=== PATIENT | female | born 1970 | race Caucasian/White ===

== ENCOUNTER 2019-09-18 11:07 | Outpatient (CLI) | payer MEDICAID, SELFPAY ==
[2019-09-18 11:15] LABS: Hematocrit 35.3 % (37.0-47.0); Hemoglobin 10.8 g/dL (11.5-15.3); Mean Corpuscular HGB Conc 30.6 g/dL (30.0-36.0); Mean Corpuscular Volume 94.9 fL (81-99); Mean Platelet Volume 9.5 fL (7.4-10.4); Platelet Count 227 10^3/cmm (130-400); Red Blood Count 3.72 10^6/uL (4.1-5.3); Red Cell Distribution Width 14.8 % (12.1-15.1); White Blood Count 6.9 10^3/uL (4.0-10.0)
[2019-09-18 11:31] LABS: Add Urine Microscopic? YES; Bilirubin Urine Neg (NEGATIVE); Blood Urine 2+ (Negative); Glucose Urine UA Norm (Normal); Ketones Urine Negative (Negative); Leukocyte Esterase Urine 2+ (Negative); Nitrate Urine Positive (Negative); Protein Urine Neg (Negative); Urine Appearance Cloudy (CLEAR); Urine Color Yellow (Yellow); Urobilinogen Urine Norm (Negative); pH Urine 6.5 (5-7)
[2019-09-18 11:41] LABS: Add Urine Culture? No; Bacteria Urine 3+; RBC Urine 15-25 /hpf (0-2); Squamous Epithelial Cell Urine 25-40 (0-5); WBC Urine 25-40 /hpf (0-5)
[2019-09-18 11:54] LABS: Alanine Aminotransferase 8 U/L (0-33); Albumin Level 3.3 g/dL (3.5-5.2); Alkaline Phosphatase 103 IU/L (35-105); Aspartate Amino Transferase 13 U/L (0-32); Blood Urea Nitrogen 22 mg/dL (6-20); Calcium 9.7 mg/dL (8.5-10.5); Carbon Dioxide 28 mmol/L (22-29); Chloride 98 mmol/L (98-107); Globulin 2.9 g/dL (1.3-4.6); Glomerular Filtration Rate 47.4 mL/min (90-130); Glucose 100 mg/dL (65-115); Sodium 140 mmol/L (136-145); Total Bilirubin 0.4 mg/dL (0.15-1.2); Total Protein 6.2 g/dL (6.6-8.7)
== END 2019-09-18 11:08 | disposition home or self-care (01) ==
LOC: LAB 11:10
PROVIDERS: Family Provider Internal Medicine; Visit Provider Internal Medicine
DX: D69.6 Thrombocytopenia, unspecified (principal)
CPT/HCPCS: 80053; 81001; 85027

== ENCOUNTER 2020-01-21 12:06 | Day surgery (SDC) | payer MEDICAID, SELFPAY ==
[2020-01-17 12:53] VITALS: BMI 38.2
--- NOTE | 2020-01-21 | SCC_ITS ---
Procedure Done: Right IJ Port-A-Cath under ultrasound and fluoroscopic guidance 7.4 seconds of fluoroscopic guidance, for a cumulative dose of 1.1 mGy, was provided to Dr. Beverly by the radiology department. C-arm images of the chest were saved for the patient's permanent record. [facility]
--- NOTE | 2020-01-21 12:55 | P.ANESASSM_ITS ---
Pre-Anesthetic Assessment Pre-Anesthetic Assessment: Height/Weight: Height 1.65 m Weight 104.326 kg Proposed Procedure: Operation Date: 01/21/20 13:40 Proposed Procedures p Portacath Placement 11421 Z78.9(Not Applicable) - Aldo Beverly MD PFS Anesthesia PFS: Medical History (Updated 12/31/19 @ 14:12 by Willie Louis MD) Anemia Constipation Depression Edema GERD (gastroesophageal reflux disease) History of MRSA infection Hyperlipidemia Hypertension Rheumatoid arthritis in remission Family History Denies family history of Anesthesia complication Bleeding disorder Social History Smoking and tobacco status: never smoked Second hand smoke exposure: No Alcohol intake: never Adopted: No Caregiver/support person: No Lives independently: Yes Household members: none Housing: Skilled Nursing Marital status: Single Data Anesthesia Cardiac Studies: No Data to Display
--- NOTE | 2020-01-21 13:08 | P.ANESASSM_ITS ---
Pre-Anesthetic Assessment Pre-Anesthetic Assessment: Height/Weight: Height 1.65 m Weight 104.326 kg Proposed Procedure: Operation Date: 01/21/20 13:40 Proposed Procedures p Portacath Placement 59928 Z78.9(Not Applicable) - Aldo Beverly MD Was Beta Butser taken within 24 hours: Yes Last intake: Cereal at 7:00AM this morning Social: Social History: No alcohol and No tobacco Exam: Pre-Anes Outpt Exam: alert and oriented x 3 Airway: Submandibular: WNL Cervical ROM: WNL MP: 2 Dentition: False History/ROS: No significant history except as noted Pulmonary: Pulmonary: Asthma CV/HEM: CV/HEM: HTN : : None reported Hepatic: Hepatic: None reported GI: GI: None reported Metabolic: Metabolic: DM and Morbid obesity Musc/skel: Musc/skel: Lower Back Pain and OA/DJD Neuropsych: Neuropsych: Bipolar Anesthetic Plan: ASA status: 3 Anesthesia: MAC PFSH Anesthesia PFSH: Medical History (Updated 12/31/19 @ 14:12 by Willie Louis MD) Anemia Constipation Depression Edema GERD (gastroesophageal reflux disease) History of MRSA infection Hyperlipidemia Hypertension Rheumatoid arthritis in remission Family History Denies family history of Anesthesia complication Bleeding disorder Social History Smoking and tobacco status: never smoked Second hand smoke exposure: No Alcohol intake: never Adopted: No Caregiver/support person: No Lives independently: Yes Household members: none Housing: Long-Term Marital status: Single Data Anesthesia Cardiac Studies: No Data to Display
[2020-01-21 13:10] VITALS: BP 98/74; PULSE 58; RESP 18; TEMP 36.1; O2SAT 93
--- NOTE | 2020-01-21 13:11 | P.HP_ITS ---
Same Day Surgery H&P Indication for Procedure/HPI DATE OF PROCEDURE: January 21, 2020 CHIEF COMPLAINT/INDICATIONFOR SURGICAL PROCEDURE: I am here to get a port PREOP DIAGNOSIS: Need for long-term IV access PLANNED PROCEDRUE: Operation Date: 01/21/20 13:40 Proposed Procedures p Portacath Placement 52320 Z78.9(Not Applicable) - Aldo Beverly MD This is a pleasant 49 years old female patient with history of obesity and associated multiple medical comorbidities, [facility] resident and have suboptimal IV access the patient was originally referred to me for Port-A-Cath placement back in October and she was reluctant to proceed then she comes today after she made up her mind and she is interested to go ahead and proceed with a Port-A-Cath placement. ROS All systems have been reviewed negative except as for the above or per problem list Medications/Allergies* Home Medications Medication Instructions Recorded Confirmed Type albuterol sulfate 90 mcg/actuation 2 puff INHALATION Q6H PRN 10/21/19 01/21/20 History aerosol inhaler apixaban 5 mg tablet 5 mg PO BID 10/21/19 01/21/20 History budesonide-formoterol HFA 160 2 puff INHALATION BID 10/21/19 01/21/20 History mcg-4.5 mcg/actuation aerosol inhaler calcium carbonate 260 mg calcium 260 mg PO DAILY 10/21/19 01/17/20 History (648 mg) tablet denosumab 60 mg/mL subcutaneous 60 mg SUBCUT .[id number] ml 10/21/19 01/17/20 History syringe docusate sodium 100 mg capsule 200 mg PO DAILY cap 10/21/19 01/21/20 History duloxetine 60 mg capsule,delayed 60 mg PO DAILY 10/21/19 01/21/20 History release fluticasone propionate 50 1 spray INTRANASAL DAILY 10/21/19 01/21/20 History mcg/actuation nasal spray,suspension furosemide 40 mg tablet 40 mg PO DAILY 10/21/19 01/21/20 History gabapentin 300 mg capsule 300 mg PO TID 10/21/19 01/21/20 History metoprolol tartrate 25 mg tablet 25 mg PO BID 10/21/19 01/17/20 History multivitamin,xr-mhxm-iyotpjjp 1 tab PO DAILY 10/21/19 01/21/20 History naproxen 250 mg tablet 250 mg PO BID PRN 10/21/19 01/17/20 History nystatin 100,000 unit/gram topical 1 applic TOPICAL DAILY 10/21/19 01/17/20 History powder ondansetron HCl 4 mg tablet 4 mg PO Q6H 10/21/19 01/21/20 History pantoprazole 40 mg tablet,delayed 40 mg PO DAILY 10/21/19 01/21/20 History release prednisone 10 mg tablet 10 mg PO DAILY 10/21/19 01/21/20 History sennosides 8.6 mg capsule 8.6 mg PO DAILY PRN 10/21/19 01/21/20 History tizanidine 2 mg capsule 2 mg PO Q8H PRN 10/21/19 01/21/20 History topiramate 50 mg tablet 50 mg PO BID 10/21/19 01/21/20 History trazodone 50 mg tablet 50 mg PO DAILY 10/21/19 01/21/20 History fentanyl See Rx Instructions .ROUTE .COMPLEX 01/17/20 01/21/20 History oxycodone-acetaminophen 1 tab PO Q6H PRN 01/17/20 01/21/20 History Allergies/Adverse Reactions Allergy/AdvReac Type Severity Reaction Status Date / Time aspirin Allergy Unknown Verified 01/21/20 13:13 chocolate flavor Allergy ALGY-Hives Verified 01/21/20 13:13 ibuprofen Allergy Unknown Verified 01/21/20 13:13 Iodinated Contrast Media Allergy ALGY-Hives Verified 01/21/20 13:13 Penicillins Allergy Unknown Verified 01/21/20 13:13 Pertinent History/Comorbid Conditions* Medical History (Updated 12/31/19 @ 14:12 by Willie Louis MD) Anemia Constipation Depression Edema GERD (gastroesophageal reflux disease) History of MRSA infection Hyperlipidemia Hypertension Rheumatoid arthritis in remission Family History (Updated 10/21/19 @ 10:57 by Melonie Gupta RN) Denies family history of Anesthesia complication Bleeding disorder Social History Smoking and tobacco status: never smoked Second hand smoke exposure: No Alcohol intake: never Adopted: No Caregiver/support person: No Lives independently: Yes Household members: none Housing: [facility] Marital status: Single Pertinent Exam Findings alert, oriented x 3, clear to auscultation bilaterally, regular rate & rhythm and procedure specific exam findings (No chest deformities or skin rash or lesions or infection noticed clinicall) Recommendations Surgery/Procedure today (Plan of care;After thorough history physical examination and reviewing the chart, I counseled the patient for Port-A-Cath placement, indications, risks including pneumothorax and injury of major vascular structures, benefits,indications and alternatives were all discussed with the patient, patient understands and is interested to proceed.Rationale was carefully and clearly discussed with the patient.Appropriate informed consent have been reviewed and signed.) Coding Level of Care Code Acute [place] 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
[2020-01-21] MEDS: sodium chloride 0.9% 1,000 ML 30 ML IV (13:17)
[2020-01-21] MEDS: ondansetron 2 mg/ML SDV 2 mL 4 MG IVP (13:41)
[2020-01-21 14:30] VITALS: RESP 18
[2020-01-21] MEDS: fentaNYL 50 mcg/mL INJ 2mL IVP (14:30)
--- NOTE | 2020-01-21 14:57 | SC_ITS ---
WS: [id number] C-arm fluoroscopy of the right chest for Port-A-Cath placement, 01/21/2020 Clinical Data: intra-op right IJ Port-A-Cath Comparison: Portable chest, 11/29/2017. Findings: The right Port-A-Cath has been inserted. SC/C-arm FL for CVA [id number] Impression: Satisfactory placement of right Port-A-Cath.
[2020-01-21] MEDS: clindamycin 600 MG/50 ML PREMIX 100 MG IV (15:30)
[2020-01-21] MEDS: lidocaine 2% INJ 20 mL INJECTION (16:03)
[2020-01-21] MEDS: heparin, porcine 1,000 unit/mL INJ 10 mL 9000 UNIT IRRIGATION (16:03)
--- NOTE | 2020-01-21 16:32 | P.OP_ITS ---
Operative Report Date of procedure: January 21, 2020 Pre-op Diagnosis: Need for long-term IV access Post-op diagnosis: same Procedure Done: Right IJ Port-A-Cath under ultrasound and fluoroscopic guidance All interpretation was done by me through the whole entire procedure Implants: Right IJ Port-A-Cath none PowerPort Surgeon: Aldo Beverly Digital Media Coordinator: Isatu surgical Circulating nurse Mary Anesthesia: MAC (maintenance of way superintendent Herber) Estimated blood loss (mL): 5 Condition: stable Disposition: same day Brief History: This is a pleasant 49 years old female patient skilled nursing resident requires long-term IV access . plan of care; After thorough history physical examination and reviewing the chart, I counseled the patient for Port-A-Cath placement, indications, risks including pneumothorax and injury of major vascular structures, benefits,indications and alternatives were all discussed with the patient, patient understands and is interested to proceed. Rationale was carefully and clearly discussed with the patient.Appropriate informed consent have been reviewed and signed. Procedure: U/S Guided IJ access Patient was identified in the holding area and taken to the operative room and placed in supine position IV propofol was given by the anesthesia provider ,both arms were tucked,Time-out was done verifying the patient's name/date of /planned procedure and destination after the procedure, all were in agreement. SCDs confirmed to be functioning, preoperative antibiotics administered per protocol, and beta calos protocol was confirmed, appropriate positioning of the patient was done by me. Medications were reviewed to assess for anticoagulant usage. Risks and benefits and prevention of central line associated blood stream infection (CLABSI) were discussed with the patient/CPOA, and a consent was obtained. Monitors were in place and monitored throughout the procedure. All necessary supplies were available prior to start. Hand hygiene was completed prior to starting. Maximum barrier technique was utilized including a sterile gown, sterile gloves with a hat and mask. Site was was prepped with [chlorhexidine] and a full body drape was placed. 5 mL of 2% lidocaine was injected into the skin with a 25 gauge needle. Prep& drape was done under the usual sterile technique, lidocaine 2% was injected at the site of the stick, started by right Internal Juglar vein stick that retrieved venous blood was obtained from the first stick under ultrasound guidance and there was no evidence of intraluminal thrombosis, interpretation was done by me through the whole entire procedure, a guidewire was then threaded and under the guidance of fluoroscopy position was confirmed to be in the IVC and my interpretation, there was some PVC changes, a wire was pulled out little bit and the PVC changes were gone, at that point the guidewire was secured to the drapes with a hemostat and the needle was taken out. Attention was then deviated towards creation of a pocket for the port were lidocaine 2% was injected using an 15 blade knife skin incision was created at the right upper Chest ,dissection using the Bovie to create a pocket for the Port-A-Cath to be accommodated, hemostasis was secured, after the port being appropriately flushed it was inserted into the pocket and a tunneler was used to accommodate the catheter of the port cath to be delivered through the incision first created at the site of the stick, yet I had to create a transit incision at the root of the neck at the right side to the patient difficult anatomy , and then I was able to retrieve the catheter at the index site of the stick. At that point under fluoroscopy an estimated length was measured for the catheter and was cut at the designed level, followed by that a dilator with the sheath introduced onto the guidewire the dilator and the wire were retrieved and the catheter of the port was introduced via the sheath where it was peeled off and the catheter maintained to be in the SVC that was confirmed with fluoroscopy, and the fluoroscopy interpretation was done by me throughout the entire procedure. Multiple flushes of the port was done by diluted heparin and I was able to retrieve without difficulty venous blood as well as appropriate flushing was achieved. The port was secured to the fascia with using Silk sutures, 3-0 Vicryl deep subdermal interrupted sutures, skin was then closed by 4-0 Monocryl as subcuticular closure. The neck incisions site was closed by 3-0 Vicryl and surgical glue was used followed by dressing. Patient tolerated the procedure well was taken to the recovery area in stable condition Count was correct at the end of the procedure I was present for the whole entire procedure
--- NOTE | 2020-01-21 16:34 | XR_ITS ---
WS: [id number] Portable AP upright chest, 01/21/2020 Clinical Data: Status post right IJ Port-A-Cath Comparison: Portable chest, 11/29/2017. Findings: No nodules, masses or effusions are seen. The heart is normal. The pulmonary vascularity is not increased. No pneumonia or pneumothorax is seen. There is a left shoulder joint arthroplasty. Th e right Port-A-Cath is in good position with the tip ending in the superior vena cava. XR/XR chest 1V portable [id number] Impression: Satisfactory placement of right Port-A-Cath.
[2020-01-21 16:45] VITALS: BP 132/72; PULSE 57; RESP 18; TEMP 36.1; O2SAT 93
[2020-01-21 17:15] VITALS: BP 122/79; PULSE 58; RESP 18; O2SAT 93
== END 2020-01-21 18:15 | disposition skilled nursing facility (03) ==
PROVIDERS: PCP Internal Medicine; Visit Provider Surgery
PROC: (CPT 36561; principal; 2020-01-21 13:40)
DX: Z45.2 Encounter for adjustment and management of vascular access device (principal); Z79.52 Long term (current) use of systemic steroids; F32.9 Major depressive disorder, single episode, unspecified; K21.9 Gastro-esophageal reflux disease without esophagitis; E78.5 Hyperlipidemia, unspecified; I10 Essential (primary) hypertension; Z86.14 Personal history of Methicillin resistant Staphylococcus aureus infection; E11.9 Type 2 diabetes mellitus without complications; E66.01 Morbid (severe) obesity due to excess calories; Z68.38 Body mass index [BMI] 38.0-38.9, adult; M19.90 Unspecified osteoarthritis, unspecified site
CPT/HCPCS: 36561; 12345; 71045; 76000; 77001; 96374; C1788; J1644; J2001; J2405; J2704; J3010; J3490; J7030

== ENCOUNTER 2020-08-04 14:04 | Emergency (ER) | payer MEDICAID, SELFPAY ==
[2020-08-04 14:10] VITALS: BP 120/49; PULSE 66; RESP 18; TEMP 36.7; O2SAT 98; BMI 29.9
--- NOTE | 2020-08-04 14:38 | XRR_ITS ---
PROCEDURE INFORMATION: Exam: XR Chest, 1 View Exam date and time: 08/04/2020 2:52 PM Age: 50 years old Clinical indication: Cough and dyspnea; Prior surgery; Surgery type: Port; Additional info: Dyspnea/cough TECHNIQUE: Imaging protocol: XR of the chest Views: 1 view. Total images: 1 COMPARISON: CR XR chest 1V portable [id number] 01/21/2020 5:01 PM FINDINGS: Tubes, catheters and devices: Right Infusaport catheter. Lungs: Evidence of antecedent granulomatous disease. No visible active interstitial or alveolar airspace disease. Pleural space: Unremarkable. No pleural effusion. No pneumothorax. Heart/Mediastinum: Cardiac structures and configuration stable. 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 High riding right shoulder. Left total shoulder prosthesis. XR/XR chest 1V portable [id number] IMPRESSION: Nonacute.
--- NOTE | 2020-08-04 15:13 | W.ED.SEIZURE ---
HPI - Seizure General: Chief Complaint: Seizure Stated Complaint: SEIZURE Time Seen by Provider: 08/04/20 14:16 History of Present Illness: HPI Narrative: 50-year-old female who comes in complaining of having an episode at the [place] [facility]. She was sitting at a table she had what sounds like a near syncopal episode she said she got lightheaded and dizzy and felt like she was going to pass out she said she seen sparkling lights and stars but she seems to remember everything that happened she has no muscle ache she does not appear to be post ictal at this time. She denies chest pain or abdominal pain. There was no loss of bowel or bladder control. MD complaint: possible seizure Onset (ago): minute(s) Witnessed: Yes - by Bystander Trauma: No Seizure History: No Associated symptoms: Deny chest pain, chills, fever(s) or malaise Review of Systems Const: Denies: fever(s), chills, body aches, change in appetite, fatigue or malaise ENMT: Denies: throat pain, ear or mastoid pain, nasal discharge or nasal congestion Card: Denies: chest pain, edema, dyspnea on exertion or orthopnea Resp: Denies: dyspnea, productive cough or non-productive cough GI: Denies: abdominal pain, nausea, vomiting, hematemesis, coffee ground emesis, diarrhea, constipation, bloating, hematochezia or melena : Denies: flank pain, difficulty voiding, dysuria, urinary frequency or urinary urgency Skin/Breast: Denies: rash or pruritus PFS ED PFSH: Medical History (Updated 08/04/20 @ 18:40 by Weston Mott DO) Anemia Constipation Depression Edema GERD (gastroesophageal reflux disease) History of MRSA infection Hyperlipidemia Hypertension Rheumatoid arthritis in remission Family History Denies family history of Anesthesia complication Bleeding disorder Social History Smoking and tobacco status: never smoked Second hand smoke exposure: No Alcohol intake: never Adopted: No Caregiver/support person: No Lives independently: Yes Household members: none Housing: Correction Marital status: Single Physical Exam Const: COMMON NORMALS: no acute distress GENERAL APPEARANCE: cooperative and comfortable ORIENTATION/CONSCIOUSNESS: Yes awake, Yes oriented to person, Yes oriented to place and Yes oriented to time HENMT: COMMON NORMALS: normocephalic, atraumatic and hearing grossly normal bilaterally HEAD & SCALP: normocephalic and atraumatic Eye: COMMON NORMALS: Equal, round and reactive pupils present, EOMs intact bilaterally, conjunctivae normal and no scleral icterus CONJUNCTIVA: Yes conjunctivae normal PUPIL: Yes Equal, round and reactive pupils present Neck/C-Spine: COMMON NORMALS: no JVD Resp: COMMON NORMALS: normal respiratory effort, No retractions, No use of accessory muscles and clear to auscultation bilaterally AUSCULTATION: clear to auscultation bilaterally Cardio: COMMON NORMALS: no JVD, regular rate, regular rhythm and No murmurs present (Cardio) RATE: regular rate RHYTHM: regular rhythm GI: COMMON NORMALS: Soft to palpation and No hepatosplenomegaly present AUSCULTATION: Yes normoactive bowel sounds PALPATION: Yes Soft to palpation, No Tenderness to palpation present (GI), No Guarding due to palpation present (GI) and Yes No hepatosplenomegaly present Extremity: COMMON NORMALS: normal to inspection, capillary refill normal, no clubbing, cyanosis or edema, no calf tenderness and no pedal edema Neuro: SENSORIUM/ORIENTATION: Yes oriented to person, Yes oriented to place and Yes oriented to time Skin: COMMON NORMALS: no rashes or lesions noted GENERAL SKIN EXAM: no rashes or lesions noted Course Vital Signs: Vital signs: Vital Signs Temperature 98.1 F 08/04/20 14:10 Pulse Rate 66 08/04/20 14:10 Respiratory Rate 18 08/04/20 14:10 Blood Pressure 120/49 08/04/20 14:10 Pulse Oximetry 98 08/04/20 14:10 MDM - Seizure MDM Narrative: Medical decision making narrative: Reviewed with the patient the findings CT the head shows some old changes compared to previous CT there is nothing new there is no evidence of bleed. We will go ahead and discharge her back to the [place] [facility] we will set up for outpatient EEG MRI and neurology consult. Her CPK is not elevated from her description of things with no loss of consciousness no postictal state I do not believe she actually had a seizure suspect more likely she had a near syncopal episode. Lab Data: Labs: Lab Results 12/08/04/20 08/04/20 Range/Units 13:01 15:25 17:42 WBC 13.0 H (4.0-10.0) 10^3/ uL RBC 4.64 (4.1-5.3) 10^6/u L Hgb 13.5 (11.5-15.3) g/dL Hct 45.2 (37.0-47.0) % MCV 97.4 (81-99) fL MCH 29.1 (28.0-34.0) pg MCHC 29.9 L (30.0-36.0) g/dL RDW 13.9 (12.1-15.1) % Plt Count 273 (130-400) 10^3/c mm MPV 9.6 (7.4-10.4) fL Neut % (Auto) 86.1 % Lymph % (Auto) 8.4 % [place] % (Auto) 4.5 % Eos % (Auto) 0.2 % Baso % (Auto) 0.4 % Neut # (Auto) 11.21 H (1.8-7.7) 10^3/u L Lymph # (Auto) 1.1 (0.8-4.8) 10^3/u L [place] # (Auto) 0.6 (0.2-0.9) 10^3/u L Eos # (Auto) 0.0 (0.0-0.8) 10^3/u L Baso # (Auto) 0.1 (0.0-0.1) 10^3/u L Nucleated RBC % (a uto) 0 % Nucleated RBCs # 0.0 /100WBC Sodium 141 (136-145) mmol/L Potassium 3.8 (3.5-5.1) mmol/L Chloride 102 (98-107) mmol/L Carbon Dioxide 27 (22-29) mmol/L Anion Gap 15.8 (5-19) BUN 16 (6-20) mg/dL Creatinine 1.0 H (0.5-0.9) mg/dL GFR Calculation 58.2 L (90-130) mL/min Glucose 135 H (65-115) mg/dL Calculated Osmolal ity 295 (285-295) mOsm/k g Calcium 9.6 (8.5-10.5) mg/dL Total Bilirubin 0.2 (0.15-1.2) mg/dL AST 13 (0-32) U/L ALT 8 (0-33) U/L Alkaline Phosphata se 104 (35-105) IU/L Creatine Kinase 38 (26-192) U/L Total Protein 7.1 (6.6-8.7) g/dL Albumin 3.7 (3.5-5.2) g/dL Globulin 3.4 (1.3-4.6) g/dL Urine Color Straw (Yellow) Urine Appearance Clear (CLEAR) Urine pH 7.0 (5-7) Ur Specific Gravit y 1.005 (1.005-1.030) Urine Protein Neg (Negative) Urine Glucose (UA) Norm (Normal) Urine Ketones Negative (Negative) Urine Blood Neg (Negative) Urine Nitrate Negative (Negative) Urine Bilirubin Neg (Negative) Urine Urobilinogen Norm (Negative) mg/dL Ur Leukocyte Shirley ase Negative (Negative) Discharge Plan Discharge Patient Disposition: Home Clinical Impression: Seizure, Near syncope Condition: Stable Prescriptions: No Action tizanidine 2 mg capsule 2 mg PO Q8H PRN (Reason: muscle spasms) RF: 0 nystatin 100,000 unit/gram powder 1 applic TOPICAL DAILY PRN (Reason: ITCHING/RASH) RF: 0 albuterol sulfate [ProAir HFA] 90 mcg/actuation HFA aerosol inhaler 2 puff INHALATION Q6H PRN (Reason: short of breath) RF: 0 ondansetron HCl [Zofran] 4 mg tablet 4 mg PO Q6H PRN (Reason: NAUSEA/VOMITING) RF: 0 Eliquis 5 mg tablet 5 mg PO BID@ RF: 0 Hold Instructions: Resume on 01/24/20. Symbicort 160-4.5 mcg/actuation HFA aerosol inhaler 2 puff INHALATION BID@ RF: 0 metoprolol tartrate 25 mg tablet 25 mg PO BID@ RF: 0 gabapentin 300 mg capsule 300 mg PO TID@, RF: 0 docusate sodium [Colace] 100 mg capsule 200 mg PO DAILY@1999 RF: 0 trazodone 50 mg tablet 50 mg PO DAILY@1999 RF: 0 Prolia 60 mg/mL syringe 60 mg SUBCUT .[id number] RF: 0 pantoprazole [Protonix] 40 mg tablet,delayed release (DR/EC) 40 mg PO DAILY@0600 RF: 0 duloxetine [Cymbalta] 60 mg capsule,delayed release(DR/EC) 60 mg PO DAILY@0800 RF: 0 fluticasone propionate [Flonase Allergy Relief] 50 mcg/actuation spray,suspension 1 spray INTRANASAL DAILY@0800 RF: 0 furosemide [Lasix] 40 mg tablet 40 mg PO DAILY@0800 RF: 0 prednisone 10 mg tablet 10 mg PO DAILY@0800 RF: 0 senna 8.6 mg capsule 8.6 mg PO DAILY PRN (Reason: Constipation) RF: 0 topiramate [Topamax] 50 mg tablet 50 mg PO BID@0800,1700 RF: 0 oxycodone-acetaminophen 5-325 mg tablet 1 tab PO Q6H PRN (Reason: Pain) 30 Days Qty: 120 RF: 0 Tylenol 325 mg Tablet 650 mg PO Q6H PRN (Reason: Pain) RF: 0 Milk of Magnesia See Rx Instructions .ROUTE .COMPLEX RF: 0 hydrocortisone 1 % Cream See Rx Instructions .ROUTE .COMPLEX RF: 0 Discharge Orders: Discharge ED (Routine); Ordered 08/04/20 Ordered By: Weston Mott Referrals: Willie Louis MD [Primary Care Provider] - Activity Restrictions/Additional Instructions: Case management will call for referral for EGD and neurology consult Coding Level of Care Code ED Crm Marketing Specialist for Pepe Duenas
[2020-08-04 15:34] LABS: Add Urine Microscopic? NO
[2020-08-04 15:38] LABS: Bilirubin Urine Neg (Negative); Blood Urine Neg (Negative); Glucose Urine UA Norm (Normal); Ketones Urine Negative (Negative); Leukocyte Esterase Urine Negative (Negative); Nitrate Urine Negative (Negative); Protein Urine Neg (Negative); Specific Gravity, Urine 1.005 (1.005-1.030); Urine Appearance Clear (CLEAR); Urine Color Straw (Yellow); Urobilinogen Urine Norm (Negative)
[2020-08-04 16:00] LABS: Alanine Aminotransferase 8 U/L (0-33); Albumin Level 3.7 g/dL (3.5-5.2); Alkaline Phosphatase 104 IU/L (35-105); Anion Gap 15.8 (5-19); Aspartate Amino Transferase 13 U/L (0-32); Blood Urea Nitrogen 16 mg/dL (6-20); Calcium 9.6 mg/dL (8.5-10.5); Carbon Dioxide 27 mmol/L (22-29); Chloride 102 mmol/L (98-107); Creatine Phosphokinase 38 U/L (26-192); Globulin 3.4 g/dL (1.3-4.6); Glomerular Filtration Rate 58.2 mL/min (90-130); Glucose 135 mg/dL (65-115); Osmolality Calculated 295 mOsm/kg (285-295); Potassium 3.8 mmol/L (3.5-5.1); Sodium 141 mmol/L (136-145); Total Bilirubin 0.2 mg/dL (0.15-1.2); Total Protein 7.1 g/dL (6.6-8.7)
--- NOTE | 2020-08-04 16:44 | CTR_ITS ---
PROCEDURE INFORMATION: Exam: CT Head Without Contrast Exam date and time: 08/04/2020 5:15 PM Age: 50 years old Clinical indication: Condition or disease; Convulsions or seizures; Additional info: New onset seizures TECHNIQUE: Imaging protocol: Computed tomography of the head without contrast. Total images: 181 Radiation optimization: All CT scans at this facility use at least one of these dose optimization techniques: automated exposure control; mA and/or kV adjustment per patient size (includes targeted exams where dose is matched to clinical indication); or iterative reconstruction. COMPARISON: CT head wo con* [id number] 07/27/2017 5:18 PM RADIATION DOSE METRICS: Total DLP (mGy-cm): 708.6 FINDINGS: Brain: No evidence of active or acute intracranial pathologic process, hemorrhage, or trauma. Unremarkable white matter. No mass effect. Cerebral ventricles: No ventriculomegaly. Bones/joints: Unremarkable. No acute fracture. Paranasal sinuses: No visible evidence of active paranasal sinus disease. Mastoid air cells: Mild chronic left mastoiditis. Partial pneumatization right mastoid air cells. Soft tissues: Unremarkable. CT/CT head wo con* [id number] IMPRESSION: No evidence of active or acute intracranial pathologic process, hemorrhage, or trauma. Radiation Dose CTDIVOL = (mGy): DLP = 708.6 (mGy-cm)
[2020-08-04 17:47] LABS: Basophils # 0.1 10^3/uL (0.0-0.1); Basophils % 0.4 %; Eosinophils % 0.2 %; Hematocrit 45.2 % (37.0-47.0); Hemoglobin 13.5 g/dL (11.5-15.3); Lymphocytes # 1.1 10^3/uL (0.8-4.8); Lymphocytes % 8.4 %; Mean Corpuscular HGB Conc 29.9 g/dL (30.0-36.0); Mean Corpuscular Hemoglobin 29.1 pg (28.0-34.0); Mean Corpuscular Volume 97.4 fL (81-99); Mean Platelet Volume 9.6 fL (7.4-10.4); Monocytes # 0.6 10^3/uL (0.2-0.9); Monocytes % 4.5 %; Neutrophils # 11.21 10^3/uL (1.8-7.7); Neutrophils % 86.1 %; Nucleated Red Blood Cells % 0 %; Platelet Count 273 10^3/cmm (130-400); Red Blood Count 4.64 10^6/uL (4.1-5.3); Red Cell Distribution Width 13.9 % (12.1-15.1)
[2020-08-04] MEDS: HYDROcodone-acetaminophen 5-325 mg Tablet 1 TAB PO (18:40)
[2020-08-04 19:03] VITALS: BP 134/74; PULSE 78; RESP 18; O2SAT 98
--- NOTE | 2020-08-04 19:04 | PC.NURSE ---
spoke with [facility] staff at this time pt given staff given instructions and transport will be arranged.
--- NOTE | 2020-08-11 10:44 | DCPLANNER ---
manager pricing had message to schedule a follow up appointment with Dr. Callejas. manager pricing called the office of Dr. Callejas, spoke with Becca, a follow up appointment is scheduled for Monday, October 12, 2020 at 8:[address] Callejas. Clinic will notify patient about appointment information. manager pricing also had message to schedule an outpatient sleep deprived EEG, porter sample case faxed order to the office of Dr. Callejas. Clinic will call patient with appointment information. manager pricing also had message to schedule an outpatient MRI of the head. manager pricing faxed order to centralized scheduling. Centralized scheduling will call patient to schedule the MRI.
--- NOTE | 2020-08-14 11:20 | DCPLANNER ---
Patient has a follow up appointment scheduled for Wednesday, August 19, 2020 at 8:00. Clinic will call patient with appointment information.
--- NOTE | 2020-09-01 07:39 | DCPLANNER ---
Patient has an outpatient MRI scheduled for Tuesday, September 01, 2020 at 3:15.
--- NOTE | 2020-10-29 15:21 | DCPLANNER ---
Patient had a follow up appointment scheduled for 08.19.20 for an EEG - patient did attend appointment. Patient had an MRI scheduled for 09.01.20 - patient did attend MRI Patient had a follow up appointment scheduled with - appointment was rescheduled.
== END 2020-08-04 21:56 | disposition home or self-care (01) ==
PROVIDERS: Emergency Provider Family Medicine; PCP Internal Medicine
DX: R56.9 Unspecified convulsions (principal); R55 Syncope and collapse; Z79.01 Long term (current) use of anticoagulants; E78.5 Hyperlipidemia, unspecified; I10 Essential (primary) hypertension
CPT/HCPCS: 12345; 36415; 70450; 71045; 80053; 81003; 82550; 85025; 99282; 99283

== ENCOUNTER → 2020-08-19 07:59 | Outpatient (BNVA) | payer MEDICAID, SELFPAY | PROVIDERS: PCP Internal Medicine; Visit Provider Specialist | DX: R56.9 Unspecified convulsions (principal) | CPT/HCPCS: 95816 ==

== ENCOUNTER 2020-09-01 14:45 | Outpatient (CLI) | payer MEDICAID, SELFPAY ==
--- NOTE | 2020-09-01 14:50 | MR_ITS ---
WS: [id number] MRI BRAIN WITHOUT CONTRAST HISTORY: SEIZURE COMPARISON: CT head 08/04/2020 TECHNIQUE: Diffusion imaging, multiplanar T1, T2 and FLAIR imaging obtained. No evidence for acute infarct or hemorrhage. Jennings-white matter differentiation is normal. Hippocampal formations are symmetric. No atrophy. Very mild atrophy. There is increased signal in the lorenzo bilaterally. Mild sparing of the central marisela s. Otherwise minimal chronic ischemic changes in the subcortical white matter. No prior infarct. Ventricles and extra-axial spaces are normal. No inferior displacement of cerebellar tonsils. The sella turcica and pituitary gland are unremarkabl e. Posterior fossa is also unremarkable. Dural venous sinuses and [place] of [place] demonstrate no abnormality on this unenhanced studies. Paranasal sinuses: Clear. Mastoid air cells: Mild bilateral mastoid air cell disease. Calvarium and scalp: Intact. MR/MR head wo con* [id number] IMPRESSION: 1. No acute infarct or hemorrhage. 2. Symmetric temporal lobes. 3. Increased signal bilaterally in the lorenzo with sparing of the central lorenzo. Distribution is most likely ischemic.
== END 2020-09-01 14:46 | disposition home or self-care (01) ==
PROVIDERS: PCP Internal Medicine; Visit Provider Emergency Medicine
DX: R56.9 Unspecified convulsions (principal)
CPT/HCPCS: 70551

== ENCOUNTER → 2020-11-10 13:00 | Outpatient (BNVA) | payer MEDICAID, SELFPAY | PROVIDERS: PCP Internal Medicine; Visit Provider Specialist | DX: G40.909 Epilepsy, unspecified, not intractable, without status epilepticus (principal) | CPT/HCPCS: 99203 ==

== ENCOUNTER → 2021-04-26 08:43 | Outpatient (BNVA) | payer MEDICAID, SELFPAY | PROVIDERS: PCP Internal Medicine; Visit Provider Internal Medicine Rheumatology | DX: M05.79 Rheumatoid arthritis with rheumatoid factor of multiple sites without organ or systems involvement (principal); Z79.899 Other long term (current) drug therapy; Z11.59 Encounter for screening for other viral diseases; Z11.1 Encounter for screening for respiratory tuberculosis; M81.0 Age-related osteoporosis without current pathological fracture; Z96.659 Presence of unspecified artificial knee joint; Z71.89 Other specified counseling | CPT/HCPCS: 99204 ==

== ENCOUNTER 2021-05-06 09:39 | Outpatient (CLI) | payer MEDICAID, SELFPAY ==
--- NOTE | 2021-05-06 09:48 | XR_ITS ---
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 Findings: Diffuse osteoporosis of the foot is noted. There is a large bunion at the head of the left first meta tarsal. There are flexion deformities, lateral deviation and multiple subluxations of all the toes. No new fractures are seen. There are orthopedic plates fixing fractures of the distal left fibula and tibia. XR/XR foot LT min 3V* [id number] Impression: 1. Bunion at the head of the left first metatarsal. 2. Subluxations and lateral deviation of all the toes of the left foot. 3. Diffuse osteoporosis of the left foot.
--- NOTE | 2021-05-06 09:48 | XR_ITS ---
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 Findings: The patient has a fused right knee. There is a long intramedullary vanessa extending the length of the fe mur and the tibia. The arthroplasty components have been removed. There is a lateral plate fixed to t he distal right femur and also the proximal lateral right tibia. Only sclerosis remains to identify t he knee joint. The patella is displaced superiorly. There is an old fracture of the cortex of the distal medial right femur. XR/XR knee RT 3V* [id number] Impression: 1. Fusion of the right knee with long intramedullary vanessa. 2. Removal of arthroplasty components. 3. Lateral plate reducing an old distal right femoral fracture and aiding in th e fusion of the right knee.
--- NOTE | 2021-05-06 09:48 | XR_ITS ---
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 The heart is normal. No pneumonia or pneumothorax is present. The pulmonary vascularity is not increased. There is a right internal jugular venous cat heter unchanged in position. There is a left shoulder arthroplasty. There is arthritic change of the right shoulder joint with erosion of the undersurface of the distal right clavicle. XR/XR chest 2V* [id number] Impression: Negative chest.
--- NOTE | 2021-05-06 09:48 | XR_ITS ---
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 Advanced arthritis radiocarpal joint and ulnocarpal joint with sclerosis. Ankylosis of th e carpal bones. Advanced narrowing at the CMC and MCP joints. Subluxation at the MCP joints. Advanced arthritis first CMC. Moderate degenerative narrowing involving the IP and DIP joints worse involving the third PIP joint. 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 IMPRESSION: Advanced changes of rheumatoid arthritis described above progressed since 2009.
--- NOTE | 2021-05-06 09:48 | XR_ITS ---
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 There is a arthroplasty of the left knee. There is a fracture of the left patella which is old. There is an inferior fragment of th e old left patellar fracture adjacent to the medial proximal tibia. The superior patellar fracture fr agment is probably in the suprapatellar bursa. There is a fracture of the left fibular head of indete rminate age. The superior aspect of an orthopedic plate plate in the left mid tibia is seen. XR/XR knee LT 3V* [id number] Impression: 1. Lateral displacement of the tibia from the femur. 2. Left knee arthroplasty and the components remain in the tibia and femur with out loosening. 3. Old fracture of left patella. 4. Fracture of proximal left fibula of indeterminate age
--- NOTE | 2021-05-06 09:48 | XR_ITS ---
WS: [id number] Right foot, 3 views, 05/07/2021 Clinical Data: Z79.899 - Other rn long term care (current) drug therapy Comparison: None. Findings: Diffuse osteoporosis is present. There is a large bunion at the head of the right first metatarsal. T here is lateral deviation and multiple subluxations of all the toes. There is arthritis of the tarsal bones with spurring of the talonavicular articulation. No new fractures are seen. There is an intramedullary vanessa fixed with transverse screws in the distal right tibia. There is a healed fracture of the distal right fibula. XR/XR foot RT min 3V* [id number] Impression: 1. Large bunion at the head of the right first metatarsal. 2. Diffuse osteoporosis. 3. Lateral deviation and multiple subluxations of all the toes.
--- NOTE | 2021-05-06 09:48 | XR_ITS ---
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 Advanced destructive arthritis at the radiocarpal joint with complete loss of the joint s pace and sclerosis similar to 2010. Ulna positive variance. Advanced degenerative arthritis at the di stal radial ulnar joint. Advanced arthritis with subluxation at the MCP joints. Moderate degenerative narrowing involving the PIP and DIP joints. Boutonniere deformities more prominent in the fifth digi t typical for rheumatoid arthritis. XR/XR hand RT min 3V* 13520 IMPRESSION: 1. Osteopenia with advanced degenerative changes worse involving the radiocarp al joint, CMC, and MTP joints. 2. Subluxation at the MCP joints. 3. Boutonniere deformities more prominent involving the fifth digit.
== END 2021-05-06 09:40 | disposition home or self-care (01) ==
LOC: RAD 09:45
PROVIDERS: PCP Internal Medicine; Visit Provider Internal Medicine Rheumatology
DX: M06.9 Rheumatoid arthritis, unspecified (principal); Z79.899 Other long term (current) drug therapy
CPT/HCPCS: 71046; 73130; 73562; 73630

== ENCOUNTER → 2021-06-15 13:55 | Outpatient (BNVA) | payer MEDICAID, SELFPAY | PROVIDERS: PCP Internal Medicine; Visit Provider Internal Medicine Rheumatology | DX: M05.79 Rheumatoid arthritis with rheumatoid factor of multiple sites without organ or systems involvement (principal); Z79.899 Other long term (current) drug therapy; Z96.653 Presence of artificial knee joint, bilateral; Z71.89 Other specified counseling | CPT/HCPCS: 99214 ==

== ENCOUNTER → 2021-09-28 14:59 | Outpatient (BNVA) | payer MEDICAID, SELFPAY | PROVIDERS: PCP Internal Medicine; Visit Provider Internal Medicine Rheumatology | DX: M05.79 Rheumatoid arthritis with rheumatoid factor of multiple sites without organ or systems involvement (principal); M25.462 Effusion, left knee; Z79.899 Other long term (current) drug therapy; Z79.52 Long term (current) use of systemic steroids; M81.0 Age-related osteoporosis without current pathological fracture; Z96.652 Presence of left artificial knee joint; Z71.89 Other specified counseling | CPT/HCPCS: 99214 ==

== ENCOUNTER → 2022-01-12 13:44 | Outpatient (BNVA) | payer MEDICAID, SELFPAY | PROVIDERS: PCP Internal Medicine; Visit Provider Internal Medicine Rheumatology | DX: M05.79 Rheumatoid arthritis with rheumatoid factor of multiple sites without organ or systems involvement (principal); Z79.899 Other long term (current) drug therapy; M81.0 Age-related osteoporosis without current pathological fracture; Z96.652 Presence of left artificial knee joint; Z71.89 Other specified counseling | CPT/HCPCS: 99214 ==

== ENCOUNTER 2022-02-07 14:58 | Observation (INO) | payer MEDICAID, SELFPAY ==
[2022-02-07] VITALS (7 sets, daily range): BP systolic 109–151; BP diastolic 76–87; PULSE 67–70; RESP 17–24; TEMP 36.6; O2SAT 94–96; BMI 42.4
--- NOTE | 2022-02-07 14:59 | XR_ITS ---
WS: [id number] XR chest 1V portable [id number] REASON FOR EXAM: dyspnea FINDINGS: The heart and the mediastinum are within normal limits. Calcified granulomatous disease in both hemithoraces. Severe arthropathic change in the right shoulder due to complete rotator cuff tear. Chemotherapy infusion port over the anterolateral right chest with transverse right jugular catheter with the tip just within the superior vena cava at the T4 level. On the previous examination of 2020 the tip of the catheter was at the T5 level. Otherwise, there has been no significant interval change in the chest. There are no findings of acute pulmonary parenchymal or pleural disease. XR/XR chest 1V portable [id number] IMPRESSION: No acute chest abnormality.
--- NOTE | 2022-02-07 15:00 | ECG_ITS ---
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 Measurements Intervals [place] Rate: 65 P: 0 MN: 155 QRS: 3 QRSD: 98 T: 6 QT: 391 QTc: 409 Interpretive Statements SINUS RHYTHM NONSPECIFIC T-WAVE ABNORMALITY Compared to ECG 08/11/2017 14:55:43 T-wave abnormality now present Incomplete right bundle-branch block no longer present Electronically Signed On 02-07-2022 17:30:31 CDT by Nasir Sr M.D. [id number]
--- NOTE | 2022-02-07 15:10 | PC.NURSE ---
PT PLACED ON CONTINUOUS NIBP, SPO2, AND CM
[2022-02-07 15:29] LABS: Basophils # 0.1 10^3/uL (0.0-0.1); Basophils % 0.8 %; Eosinophils # 0.1 10^3/uL (0.0-0.8); Eosinophils % 1.6 %; Hemoglobin 12.3 g/dL (11.5-15.3); Lymphocytes % 13.7 %; Mean Corpuscular HGB Conc 32.4 g/dL (30.0-36.0); Mean Corpuscular Hemoglobin 29.1 pg (28.0-34.0); Mean Corpuscular Volume 89.8 fl (81-99); Mean Platelet Volume 10.1 fL (7.4-10.4); Monocytes # 0.5 10^3/uL (0.2-0.9); Monocytes % 7.6 %; Neutrophils # 5.38 10^3/uL (1.8-7.7); Neutrophils % 75.9 %; Nucleated Red Blood Cells % 0 %; Platelet Count 196 10^3/cmm (130-400); Red Blood Count 4.23 10^6/uL (4.1-5.3); Red Cell Distribution Width 15.3 % (12.1-15.1); White Blood Count 7.1 10^3/uL (4.0-10.0)
--- NOTE | 2022-02-07 15:44 | PC.PHAR ---
MEDICATION VERIFIED USING MAR FROM [facility]IE [facility]ERRON. TRAZADONE MG CHANGED TO 25MG ON 01/25/22 PER
--- NOTE | 2022-02-07 15:53 | W.ED.GENADLT ---
HPI - General Adult General: Chief complaint: General Medical Stated complaint: R SIDED CP/ SOB Time Seen by Provider: 02/07/22 14:59 History of Present Illness: Patient is a 51-year-old female with a history of rheumatoid arthritis, DVT on eliquis, obesity, depression who presents the emergency room with complaints of right-sided chest pain shortness of breath since eating lunch at 1230. Patient tells me that she was at [facility] when she developed chest pain shortness of breath. Patient says that the chest pain is sharp and stabbing worse with breathing. Patient has any cough, runny nose sore throat. In addition, patient reports lower abdominal pain after eating today. Patient denies any urinary symptoms. Denies any diarrhea melena or hematochezia. Patient denies any nausea vomiting or diaphoresis. No cardiac history including stents. Onset: 12:30 Duration:ongoing Location:home Severity:moderate Associated symptoms: Deny chest pain, dyspnea, nausea, rash, palpitations or vomiting Review of Systems Const: Denies: fever(s) or chills Eyes: Denies: change in vision ENMT: Denies: mouth pain Card: Denies: chest pain or palpitations Resp: Denies: dyspnea or non-productive cough GI: Denies: abdominal pain, nausea, vomiting or diarrhea : Denies: dysuria Musc: Denies: extremity pain Skin/Breast: Denies: rash or new lesions Neuro: Denies: weakness in extremities Psych: Reports: other (Normal mood) Piyush/Lymph: Denies: easy bruising PFSH ED PFSH: Medical History Anemia Constipation Depression Edema GERD (gastroesophageal reflux disease) High risk medication use History of MRSA infection Hyperlipidemia Hypertension Immunization counseling Rheumatoid arthritis in remission Seropositive rheumatoid arthritis of multiple sites Surgical History History of total knee arthroplasty Family History Denies family history of Anesthesia complication Bleeding disorder Social History Smoking and tobacco status: never smoked Second hand smoke exposure: No Alcohol intake: never Adopted: No Caregiver/support person: No Lives independently: Yes Household members: none Housing: Retirement Marital status: Single History of recent travel: No Physical Exam Const: COMMON NORMALS: alert HENMT: COMMON NORMALS: atraumatic HEAD & SCALP: atraumatic MOUTH: moist mucous membranes not abnormal Eye: COMMON NORMALS: EOMs intact bilaterally and conjunctivae normal CONJUNCTIVA: Yes conjunctivae normal Neck/C-Spine: COMMON NORMALS: full ROM and supple Resp: COMMON NORMALS: normal respiratory effort and clear to auscultation bilaterally AUSCULTATION: clear to auscultation bilaterally Cardio: COMMON NORMALS: regular rate RATE: regular rate GI: COMMON NORMALS: Soft to palpation and non-tender PALPATION: Yes Soft to palpation Extremity: COMMON NORMALS: full ROM Neuro: SENSORIUM/ORIENTATION: Yes alert MOTOR EXAM: No Abnormal motor strength present and Other motor observations present (no focal motor deficits) Psych: COMMON NORMALS: speech normal SPEECH: Yes normal speech MOOD & AFFECT: Yes euthymic mood Course Vital Signs: Vital signs: Vital Signs Temperature 97.9 F 02/07/22 15:05 Pulse Rate 68 02/07/22 15:05 Respiratory Rate 19 H 02/07/22 15:05 Blood Pressure 151/87 02/07/22 15:05 Pulse Oximetry 95 02/07/22 15:05 [facility] - General Adult Medical Decision Making Patient is a 51-year-old female with a history of rheumatoid arthritis, DVT on eliquis, obesity, depression who presents the emergency room with complaints of right-sided chest pain shortness of breath since eating lunch at 1230. Troponin x 1 of 14. Dimer elevated. On eliquis for VTE. Patient has severe allergies to aspirin and contrast, and declined CTA and ASA. Disposition: admission Lab Data : 02/07/22 15:18 02/07/22 16:02 Radiology Impressions Chest X-Ray 02/07/22 14:59 IMPRESSION: No acute chest abnormality. Head CT 02/07/22 16:08 IMPRESSION: No acute intracranial abnormality. Laboratory Results WBC 7.1 10^3/uL (4.0-10.0) 02/07/22 15:18 RBC 4.23 10^6/uL (4.1-5.3) 02/07/22 15:18 Hgb 12.3 g/dL (11.5-15.3) 02/07/22 15:18 Hct 38.0 % (37.0-47.0) 02/07/22 15:18 MCV 89.8 fl (81-99) 02/07/22 15:18 MCH 29.1 pg (28.0-34.0) 02/07/22 15:18 MCHC 32.4 g/dL (30.0-36.0) 02/07/22 15:18 RDW 15.3 % (12.1-15.1) H 02/07/22 15:18 Plt Count 196 10^3/cmm (130-400) 02/07/22 15:18 MPV 10.1 fL (7.4-10.4) 02/07/22 15:18 Neut % (Auto) 75.9 % 02/07/22 15:18 Lymph % (Auto) 13.7 % 02/07/22 15:18 [place] % (Auto) 7.6 % 02/07/22 15:18 Eos % (Auto) 1.6 % 02/07/22 15:18 Baso % (Auto) 0.8 % 02/07/22 15:18 Neut # (Auto) 5.38 10^3/uL (1.8-7.7) 02/07/22 15:18 Lymph # (Auto) 1.0 10^3/uL (0.8-4.8) 02/07/22 15:18 [place] # (Auto) 0.5 10^3/uL (0.2-0.9) 02/07/22 15:18 Eos # (Auto) 0.1 10^3/uL (0.0-0.8) 02/07/22 15:18 Baso # (Auto) 0.1 10^3/uL (0.0-0.1) 02/07/22 15:18 Nucleated RBC % (auto) 0 % 02/07/22 15:18 Nucleated RBCs # 0.0 /100WBC 02/07/22 15:18 D-Dimer 1.91 ug/mIFEU (0-0.59) H 02/07/22 16:25 Sodium 138 mmol/L (136-145) 02/07/22 16:02 Potassium 4.6 mmol/L (3.5-5.1) 02/07/22 16:02 Chloride 102 mmol/L (98-107) 02/07/22 16:02 Carbon Dioxide 24 mmol/L (22-29) 02/07/22 16:02 Anion Gap 16.6 (5-19) 02/07/22 16:02 BUN 16 mg/dL (6-20) 02/07/22 16:02 Creatinine 1.0 mg/dL (0.5-0.9) H 02/07/22 16:02 GFR Calculation 58.0 mL/min (90-130) L 02/07/22 16:02 Glucose 101 mg/dL (65-115) 02/07/22 16:02 Calculated Osmolality 287 mOsm/kg (285-295) 02/07/22 16:02 Calcium 8.4 mg/dL (8.5-10.5) L 02/07/22 16:02 Troponin T Baseline 14 ng/L (0-10) H 02/07/22 15:18 Troponin T Baseline Cancelled 02/07/22 15:18 NT-Pro-B Natriuret Pep 120 pg/mL (0-125) 02/07/22 16:02 Imaging Data Other Imaging: Radiologist's impression: [place] [address] [place] Scan Report Signed Patient: Patience Rinaldi Unit #: [id number] : 1970 Age/Sex: 51 / F ADM Date: 02/07/22 Loc: ER Room/Bed: Attending Dr: Ordering Provider/Ordering MD: Cira Johnson MD Date of Service: 02/07/22 Procedure(s): CT head wo con* [id number] Accession Number(s): [id number] Report Number: [id number] PROCEDURE INFORMATION: Exam: CT Head Without Contrast Exam date and time: 02/07/2022 5:40 PM Age: 51 years old Clinical indication: Pain; Headache; Additional info: AMS TECHNIQUE: Imaging protocol: Computed tomography of the head without contrast. Radiation optimization: All CT scans at this facility use at least one of these dose optimization techniques: automated exposure control; mA and/or kV adjustment per patient size (includes targeted exams where dose is matched to clinical indication); or iterative reconstruction. COMPARISON: MR head wo con* [id number] 09/01/2020 3:58 PM RADIATION DOSE METRICS: Total DLP (mGy-cm): 765.88 FINDINGS: Brain: Normal.? No hemorrhage or evidence of acute infarction. No mass effect. Cerebral ventricles: No ventriculomegaly. Paranasal sinuses: Visualized sinuses are unremarkable. No fluid levels. Mastoid air cells: Visualized mastoid air cells are well aerated. Bones/joints: Unremarkable. No acute fracture. Soft tissues: Unremarkable. CT/CT head wo con* [id number] IMPRESSION: No acute intracranial abnormality. ? Dictated By: Serg Palma MD Signed By: Serg Palma MD Signed Date/Time: 02/07/22 1814 DD/ [address] [address] XRay Report Signed Patient: Patience Rinaldi Unit #: [id number] : 1970 Age/Sex: 51 / F ADM Date: 02/07/22 Loc: ER Room/Bed: Attending Dr: Ordering Provider/Ordering MD: Cira Johnson MD Date of Service: 02/07/22 Procedure(s): XR chest 1V portable [id number] Accession Number(s): [id number] Report Number: [id number] WS: [id number] XR chest 1V portable [id number] REASON FOR EXAM: dyspnea FINDINGS: The heart and the mediastinum are within normal limits. Calcified granulomatous disease in both hemithoraces. Severe arthropathic change in the right shoulder due to complete rotator cuff tear. Chemotherapy infusion port over the anterolateral right chest with transverse right jugular catheter with the tip just within the superior vena cava at the T4 level. On the previous examination of 05/06/2021 the tip of the catheter was at the T5 level. Otherwise, there has been no significant interval change in the chest. There are no findings of acute pulmonary parenchymal or pleural disease. XR/XR chest 1V portable [id number] IMPRESSION: No acute chest abnormality. ? ? 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
--- NOTE | 2022-02-07 15:58 | PM.HP ---
Providers/Chief Complaint Primary Care Provider: Willie Louis MD Chief Complaint: R SIDED CP/ SOB History of Present Illness Patience Rinaldi is a 51 year old female who is bedbound, from [facility], has rheumatoid arthritis, presented with chief complaint of chest pain. She is stating that her symptoms started roughly a year ago after placement of Mediport because of poor IV access which was recommended by Dr. Louis. She has been having chest pain on and off today after lunch she started noticing chest discomfort which he described as stabbing sensation radiating towards her left arm at the same time she noticed numbness of her left arm and left side of the face that prompted her visit to the hospital. She also noticed some cramps in her abdomen. She is stating that she also noticed right-sided facial droop when she returned to her room around 12:30 PM. She also noticed that today she was weaker than her baseline and she was dropping silverware at lunchtime. I am evaluating her at 4:14 PM, Patient is awake and alert She is still complaining of chest pain which is stabbing sensation, reproducible No facial palsy however insensate on left side of her face CT head pending Review of Systems Const: Reports: chills, body aches and fatigue Eyes: Denies: change in vision ENMT: Denies: throat pain Card: Reports: chest pain Resp: Denies: dyspnea GI: Reports: abdominal pain and nausea : Denies: flank pain Musc: Reports: neck pain, back pain, extremity pain and joint pain Skin/Breast: Reports: lesions Neuro: Denies: headache(s) Psych: Reports: anxiety Endo: Denies: polyuria Piyush/Lymph: Denies: easy bruising All/Imm: Denies: urticaria Medications/Allergies Home Medications Medication Instructions Recorded Confirmed Last Taken Type apixaban 5 mg tablet (Eliquis) 5 mg PO BID@08,199910/21/19 02/07/22 02/07/22 History budesonide-formoterol HFA 160 2 puff INHALATION BID@799,199910/21/19 02/07/22 02/07/22 History mcg-4.5 mcg/actuation aerosol inhaler (Symbicort) denosumab 60 mg/mL subcutaneous 60 mg SUBCUT .[id number] ml 10/21/19 02/07/22 Unknown History syringe (Prolia) docusate sodium 100 mg capsule 200 mg PO DAILY@1999 cap 10/21/19 02/07/22 02/06/22 History (Colace) duloxetine 60 mg capsule,delayed 60 mg PO DAILY@0810/21/19 02/07/22 02/07/22 History release (Cymbalta) fluticasone propionate 50 1 spray INTRANASAL DAILY@0810/21/19 02/07/22 02/07/22 History mcg/actuation nasal spray,suspension (Flonase Allergy Relief) furosemide 40 mg tablet (Lasix) 40 mg PO DAILY@0810/21/19 02/07/22 02/07/22 History gabapentin 300 mg capsule 300 mg PO TID@10/21/19 02/07/22 02/07/22 History metoprolol tartrate 25 mg tablet 25 mg PO BID@0800,199910/21/19 02/07/22 02/07/22 History sennosides 8.6 mg capsule (senna) 8.6 mg PO DAILY PRN 10/21/19 02/07/22 02/07/22 History acetaminophen 325 mg tablet 650 mg PO Q6H PRN 08/04/20 02/07/22 Unknown History (Tylenol) topiramate 50 mg tablet (Topamax) 50 mg PO BID@0800,1700 #60 tab 01/12/21 02/07/22 02/07/22 Rx leflunomide 20 mg tablet 20 mg PO DAILY #30 tab 06/15/21 02/07/22 02/07/22 Rx trazodone 50 mg tablet 25 mg PO .HS #90 tab 08/11/21 02/07/22 02/06/22 Rx fluconazole 150 mg tablet 150 mg PO DAILY #1 tab 09/23/21 02/07/22 Unknown Rx oxycodone-acetaminophen 5 mg-325 1 tab PO Q6H PRN 30 Days #120 tab 12/10/21 02/07/22 Unknown Rx mg tablet adalimumab 40 mg/0.8 mL 40 mg (0.8 mL) SUBCUT Q14D #2 ea 01/12/22 02/07/22 Unknown Rx subcutaneous pen kit (Humira Pen) pantoprazole 40 mg tablet,delayed 40 mg PO DAILY@0600 #30 tab 01/12/22 02/07/22 02/07/22 Rx release (Protonix) prednisone 10 mg tablet 10 mg PO BID 02/07/22 02/07/22 02/07/22 History Allergies Allergy/AdvReac Type Severity Reaction Status Date / Time aspirin Allergy Unknown Verified 02/07/22 15:47 chocolate flavor Allergy ALGY-Hives Verified 02/07/22 15:47 ibuprofen Allergy Unknown Verified 02/07/22 15:47 Iodinated Contrast Media Allergy ALGY-Hives Verified 02/07/22 15:47 Penicillins Allergy Unknown Verified 02/07/22 15:47 PFSH Acute PFSH: Medical History Anemia Constipation Depression Edema GERD (gastroesophageal reflux disease) High risk medication use History of MRSA infection Hyperlipidemia Hypertension Immunization counseling Rheumatoid arthritis in remission Seropositive rheumatoid arthritis of multiple sites Surgical History History of total knee arthroplasty Family History Denies family history of Anesthesia complication Bleeding disorder Social History Smoking and tobacco status: never smoked Second hand smoke exposure: No Alcohol intake: never Adopted: No Caregiver/support person: No Lives independently: Yes Household members: none Housing: Care Home Marital status: Single History of recent travel: No Vitals/I&O/Wt Last Vital Signs Temp 97.9 F 02/07/22 15:05 Pulse 68 02/07/22 15:05 Resp 19 H 02/07/22 15:05 BP 151/87 02/07/22 15:05 Pulse Ox 95 02/07/22 15:05 Weight last 48 hrs Weight 115.666 kg Physical Exam Narrative: Obese female Currently saturating well on room air Reproducible chest pain Abdomen soft nontender No signs of edema Does not seem to be in any distress Insensate left side of her face, No visual deficit EOMI, PERRLA She is wearing glasses Mild right-sided facial droop No tongue deviation Saturating well on room air No audible stridor or wheezing No signs of abdominal rigidity tenderness or guarding Nonpitting edema of legs Data : 02/07/22 15:18 02/07/22 16:02 A&P Assessment and plan (1) Atypical chest pain: Status: Acute (2) Numbness of face: Status: Acute (3) Numbness and tingling in left arm: Status: Acute Plan 51-year-old male who is 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 after midnight Seizure disorder ruled out see Dr. Callejas note Attestations Medical Necessity Statement*: Pending discharge within 48 hours will need stress test to rule out cardiac etiology for chest pain Time Spent in Patient Care: 40 Coding Level of Care Code Acute Quantitative Manager for Chg Fwd Diagnoses Atypical chest pain R07.89 Numbness of face R20.0 Numbness and tingling in left arm R20.0; R20.2
--- NOTE | 2022-02-07 16:08 | CTR_ITS ---
PROCEDURE INFORMATION: Exam: CT Head Without Contrast Exam date and time: 02/07/2022 5:40 PM Age: 51 years old Clinical indication: Pain; Headache; Additional info: AMS TECHNIQUE: Imaging protocol: Computed tomography of the head without contrast. Radiation optimization: All CT scans at this facility use at least one of these dose optimization techniques: automated exposure control; mA and/or kV adjustment per patient size (includes targeted exams where dose is matched to clinical indication); or iterative reconstruction. COMPARISON: MR head wo con* [id number] 09/01/2020 3:58 PM RADIATION DOSE METRICS: Total DLP (mGy-cm): 765.88 FINDINGS: Brain: Normal. No hemorrhage or evidence of acute infarction. No mass effect. Cerebral ventricles: No ventriculomegaly. Paranasal sinuses: Visualized sinuses are unremarkable. No fluid levels. Mastoid air cells: Visualized mastoid air cells are well aerated. Bones/joints: Unremarkable. No acute fracture. Soft tissues: Unremarkable. CT/CT head wo con* [id number] IMPRESSION: No acute intracranial abnormality.
[2022-02-07 16:32] LABS: Troponin(5th) Baseline 14 ng/L (0-10)
[2022-02-07 16:38] LABS: Blood Urea Nitrogen 16 mg/dL (6-20); Calcium 8.4 mg/dL (8.5-10.5); Carbon Dioxide 24 mmol/L (22-29); Chloride 102 mmol/L (98-107); Glucose 101 mg/dL (65-115); NT Pro B Type Natriuretic Pept 120 pg/mL (0-125); Osmolality Calculated 287 mOsm/kg (285-295); Sodium 138 mmol/L (136-145)
[2022-02-07 16:48] LABS: Creatinine Clr Calc Pharmacy 82.6457
[2022-02-07 16:49] LABS: Anion Gap 16.6 (5-19); Potassium 4.6 mmol/L (3.5-5.1)
--- NOTE | 2022-02-07 17:00 | ECG_ITS ---
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 Measurements Intervals [place] Rate: 67 P: 8 VT: 163 QRS: 5 QRSD: 103 T: 1 QT: 410 QTc: 434 Interpretive Statements SINUS RHYTHM NONSPECIFIC T-WAVE ABNORMALITY Compared to ECG 08/11/2017 14:55:43 T-wave abnormality now present Incomplete right bundle-branch block no longer present Electronically Signed On 02-07-2022 17:35:25 CDT by Nasir Sr M.D. [id number]
[2022-02-07 17:02] LABS: D Dimer 1.91 ug/mIFEU (0-0.59)
[2022-02-07 19:16] LABS: Troponin 5 2HR 13.95 ng/L (0-10)
[2022-02-07 19:18] LABS: Troponin 5 2HR Delta -0.05 ABS# (0-10)
--- NOTE | 2022-02-07 19:35 | PC.NURSE ---
Attempted to call report, nurse unavailable, states they will have her call me back
[2022-02-07] MEDS: morphine 4 mg/mL SDV 1 mL 2 MG IVP (19:55)
--- NOTE | 2022-02-07 20:07 | PC.NURSE ---
Attempted to call report for the second time, no answer
--- NOTE | 2022-02-07 20:20 | PC.NURSE ---
Attempted report, nurse unavailable
--- NOTE | 2022-02-07 21:00 | ECG_ITS ---
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 Measurements Intervals [place] Rate: 62 P: 23 ID: [id number] QRS: 5 QRSD: 104 T: 25 QT: 427 QTc: 436 Interpretive Statements SINUS RHYTHM Compared to ECG 02/07/2022 16:53:29 T-wave abnormality no longer present Electronically Signed On 02-07-2022 23:26:01 CDT by Nasir Sr M.D. [email or web address] areaMCI [id number]
--- NOTE | 2022-02-07 21:09 | USCV_ITS ---
Heide Rinaldilotte Age: 51 Gender: F : 1970 Exam Date: 02/07/2022 22:00 Ordering Phys: Tania Scott MD Technologist: JONY [place] [facility] [place]: chest pain today. No hx cardiac intervention per patient. BP: 127 / 84 HR: 70 Rhythm: Sinus Technical Quality: Adequate MEASUREMENTS (Male / Female) Normal Values 2D ECHO LV Diastolic Diameter PLAX 3.3 cm 4.2 - 5.9 / 3.9 - 5.3 cm LV Systolic Diameter PLAX 2.0 cm IVS Diastolic Thickness 1.4 cm 0.6 - 1.0 / 0.6 - 0.9 cm IVS Systolic Thickness 1.5 cm LVPW Diastolic Thickness 1.7 cm 0.6 - 1.0 / 0.6 - 0.9 cm LVPW Systolic Thickness 1.9 cm LVOT Diameter 2.0 cm LV Ejection Fraction 2D Teich 69.8 % LV Ejection Fraction MOD 2C 62.4 % LV Ejection Fraction 2C AL 61.4 % LA Diameter 3.2 cm LA Width 3.3 cm LA Height 4.5 cm RA Width 2.3 cm RA Height 4.6 cm Aorta at Sinotubular Diameter 2.6 cm IVC Diameter 1.8 cm M-MODE Aortic Annulus Diameter 3.2 cm LA Ao Ratio MM 1.0 MV E Point Septal Separation 0.3 cm DOPPLER AV Peak Velocity 121.0 cm/s LVOT Peak Velocity 106.0 cm/s AV Area Cont Eq vti 2.6 cm squared AV Area Cont Eq pk 2.6 cm squared MV Peak Velocity 79.0 cm/s MV Area PHT 3.0 cm squared Mitral E to A Ratio 0.9 MV E' Velocity 37.0 cm/s Mitral E to MV E' Ratio 5.9 Mitral E to LV E' Lateral Ratio 4.8 Mitral E to LV E' Septal Ratio 7.7 TR Peak Velocity 244.3 cm/s TR Peak Gradient 23.9 mmHg TV Peak E Velocity 56.0 cm/s Right Atrial Pressure 5.0 mmHg Pulmonary Artery Systolic Pressu 28.9 mmHg PV Peak Velocity 109.0 cm/s RV Acceleration Time 0.1 s RV Ejection Time 0.4 s RV AcT/ET 0.2 FINDINGS Left Ventricle Normal left ventricular size and systolic function, EF 58 %. No regional wall motion abnormalities. Right Ventricle The right ventricle is normal in size and function. Right Atrium The right atrium is normal in size. Left Atrium The left atrium is normal in size. Mitral Valve No gross abnormalities noted Aortic Valve No gross abnormalities noted Tricuspid Valve Trace to mild tricuspid valve regurgitation. Estimated pulmonary artery peak systolic pressure 29 mmHg Pulmonic Valve Pulmonic valve not well visualized. Pericardium Normal pericardium without effusion. Aorta Normal ascending aorta dimension. IVC The inferior vena cava pulmonary and hepatic veins appear normal. CONCLUSIONS Normal left ventricular size and systolic function, EF 58 %. No regional wall motion abnormalities. Trace to mild tricuspid valve regurgitation. There is no pericardial effusion. There are no intracardiac masses. Estimated pulmonary artery peak systolic pressure 29 mmHg Compared to the study from 09/22/2017, there ejection fraction has improved. The PA pressure is currently in the normal range Dr Nevin Chávez MD FACC (Electronically Signed) Final Date: 08 February 2022 07:40 S
[2022-02-07] MEDS: apixaban 5 mg Tablet PO (21:56)
[2022-02-07] MEDS: metoprolol tartrate 25 mg Tablet PO (21:56)
[2022-02-07] MEDS: oxyCODONE-APAP 5-325 mg Tablet 1 TAB PO (21:57)
[2022-02-08] VITALS (9 sets, daily range): BP systolic 103–125; BP diastolic 65–84; PULSE 56–96; RESP 16–18; TEMP 36.7–36.9; O2SAT 92–98
--- NOTE | 2022-02-08 06:37 | USCV_ITS ---
Patience Rinaldi Age: 51 Gender: F : 1970 Exam Date: 02/08/2022 07:51 Ordering Phys: Tania Scott MD Technologist: Angel Hong [place] [facility] [place] Indication: ? dvt PROCEDURES: The venous duplex Doppler examination of both lower extremities was performed in the standard fashion. The following venous structures were evaluated: common femoral vein, profunda vein, proximal portion of the greater saphenous vein, superficial femoral vein, and the popliteal vein. In addition, the posterior tibial and peroneal trunk were evaluated. FINDINGS: Normal 2-D Doppler and augmentation and compressibility throughout the lower extremity venous structures. Additional imaging through the proximal calf veins also reveals no thrombus. Limited evaluation of the greater saphenous vein is patent with no thrombus. CONCLUSIONS No DVT bilateral lower extremities. Dr. Nanda Concepcion DO (Electronically Signed) Final Date: 08 February 2022 08:47 S
--- NOTE | 2022-02-08 06:38 | PM.DCS ---
Discharge Providers Date of Admission: 02/07/22 17:17 Date of Discharge: February 08, 2022 Attending Provider at Admission: Tania Scott MD Attending Provider at Discharge: Tania Scott MD Primary Care Provider: Willie Louis MD Diagnoses at Discharge Discharge Diagnosis (1) Atypical chest pain: (2) Numbness of face: (3) Numbness and tingling in left arm: Reason for Visit Reason for Visit: R SIDED CP/ SOB Hospital Course Hospital Course 51-year-old female who has history of seropositive rheumatoid arthritis, follows up with rheumatology, presented from [facility] with chief complaint of right-sided facial droop, weakness of her left arm and chest pain. Troponins were unremarkable, EKG did not show ischemic or infarctive changes, D-dimer was 1.9, she is already on Eliquis, her chest pain was reproducible, atypical in presentation, likely musculoskeletal, cardiac stress test was requested, echo is unremarkable no regional wall motion abnormality, at rest no pain however her chest pain is reproducible She remained hemodynamically stable, CT head unremarkable, patient was not in tPA window for her right-sided facial droop and left arm numbness, her symptoms started at 1230 on Monday around lunchtime and by the time I saw her it was 4 PM, code stroke was not called. Her symptoms of left arm numbness could be related to cervical radiculopathy related to rheumatoid arthritis. Physical Exam Narrative: Very anxious appearing female Reproducible chest pain Distended abdomen soft Saturating well on room air No extremity nonpitting edema Sensations intact of bilateral upper extremities Sensations around her left side of face are diminished, no signs of Charles's palsy S1, S2 Soft abdomen Discharge Data Studies Completed and Pending Completed Studies During Hospitalization Category Date Time Status CT head wo con* [id number] Urgent Cat Scan 02/07/22 16:08 Completed XR chest 1V portable [id number] Stat Exams 02/07/22 14:59 Completed Pending at discharge Category Date Time Status Sestamibi Stress Test Request Routine Exams 02/07/22 21:09 Ordered Basic Metabolic Panel AM LABS Lab 02/08/22 04:00 Ordered Complete Blood Count w/Auto AM LABS Lab 02/08/22 04:00 Ordered NM monik perf SPECT r/s* [id number] Routine Nuc Med 02/08/22 21:09 Ordered CV. echo complete* [id number] Routine Ultrasound 02/07/22 21:09 Taken US venous duplex lower extremity bilat [CV venous Ultrasound 02/08/22 06:37 [place] [id number]] Stat Radiology Impressions Chest X-Ray 02/07/22 14:59 IMPRESSION: No acute chest abnormality. Head CT 02/07/22 16:08 IMPRESSION: No acute intracranial abnormality. Laboratory Results WBC 7.1 10^3/uL (4.0-10.0) 02/07/22 15:18 RBC 4.23 10^6/uL (4.1-5.3) 02/07/22 15:18 Hgb 12.3 g/dL (11.5-15.3) 02/07/22 15:18 Hct 38.0 % (37.0-47.0) 02/07/22 15:18 MCV 89.8 fl (81-99) 02/07/22 15:18 MCH 29.1 pg (28.0-34.0) 02/07/22 15:18 MCHC 32.4 g/dL (30.0-36.0) 02/07/22 15:18 RDW 15.3 % (12.1-15.1) H 02/07/22 15:18 Plt Count 196 10^3/cmm (130-400) 02/07/22 15:18 MPV 10.1 fL (7.4-10.4) 02/07/22 15:18 Neut % (Auto) 75.9 % 02/07/22 15:18 Lymph % (Auto) 13.7 % 02/07/22 15:18 Summers % (Auto) 7.6 % 02/07/22 15:18 Eos % (Auto) 1.6 % 02/07/22 15:18 Baso % (Auto) 0.8 % 02/07/22 15:18 Neut # (Auto) 5.38 10^3/uL (1.8-7.7) 02/07/22 15:18 Lymph # (Auto) 1.0 10^3/uL (0.8-4.8) 02/07/22 15:18 Summers # (Auto) 0.5 10^3/uL (0.2-0.9) 02/07/22 15:18 Eos # (Auto) 0.1 10^3/uL (0.0-0.8) 02/07/22 15:18 Baso # (Auto) 0.1 10^3/uL (0.0-0.1) 02/07/22 15:18 Nucleated RBC % (auto) 0 % 02/07/22 15:18 Nucleated RBCs # 0.0 /100WBC 02/07/22 15:18 D-Dimer 1.91 ug/mIFEU (0-0.59) H 02/07/22 16:25 Sodium 138 mmol/L (136-145) 02/07/22 16:02 Potassium 4.6 mmol/L (3.5-5.1) 02/07/22 16:02 Chloride 102 mmol/L (98-107) 02/07/22 16:02 Carbon Dioxide 24 mmol/L (22-29) 02/07/22 16:02 Anion Gap 16.6 (5-19) 02/07/22 16:02 BUN 16 mg/dL (6-20) 02/07/22 16:02 Creatinine 1.0 mg/dL (0.5-0.9) H 02/07/22 16:02 GFR Calculation 58.0 mL/min (90-130) L 02/07/22 16:02 Glucose 101 mg/dL (65-115) 02/07/22 16:02 Calculated Osmolality 287 mOsm/kg (285-295) 02/07/22 16:02 Calcium 8.4 mg/dL (8.5-10.5) L 02/07/22 16:02 Troponin T Baseline 14 ng/L (0-10) H 02/07/22 15:18 Troponin T Baseline Cancelled 02/07/22 15:18 Troponin T 120 Minute 13.95 ng/L (0-10) H 02/07/22 18:43 Delta Troponin T -0.05 ABS# (0-10) L 02/07/22 18:43 NT-Pro-B Natriuret Pep 120 pg/mL (0-125) 02/07/22 16:02 Vitals Last Vital Signs Temp 98.4 F 02/08/22 04:28 Pulse 62 02/08/22 04:28 Resp 18 02/08/22 04:28 BP 104/65 02/08/22 04:28 Pulse Ox 93 02/08/22 04:28 Discharge Plan Discharge Patient Disposition: Xfer SNF Condition: Stable Prescriptions: Continued Eliquis 5 mg tablet 5 mg PO BID@799,1999 0RF Hold Instructions: Resume on 01/24/20. Symbicort 160-4.5 mcg/actuation HFA aerosol inhaler 2 puff INHALATION BID@799,1999 0RF metoprolol tartrate 25 mg tablet 25 mg PO BID@08,1999 0RF gabapentin 300 mg capsule 300 mg PO TID@08,, 0RF docusate sodium [Colace] 100 mg capsule 200 mg PO DAILY@1999 0RF Prolia 60 mg/mL syringe 60 mg SUBCUT .[id number] 0RF duloxetine [Cymbalta] 60 mg capsule,delayed release(DR/EC) 60 mg PO DAILY@0800 0RF fluticasone propionate [Flonase Allergy Relief] 50 mcg/actuation spray,suspension 1 spray INTRANASAL DAILY@0800 0RF furosemide [Lasix] 40 mg tablet 40 mg PO DAILY@0800 0RF senna 8.6 mg capsule 8.6 mg PO DAILY PRN (Reason: Constipation) 0RF trazodone 50 mg tablet 25 mg PO .HS Qty: 90 3RF leflunomide 20 mg tablet 20 mg PO DAILY Qty: 30 3RF fluconazole 150 mg tablet 150 mg PO DAILY Qty: 1 0RF Humira Pen 40 mg/0.8 mL pen injector kit 40 mg SUBCUT Q14D Qty: 2 3RF pantoprazole [Protonix] 40 mg tablet,delayed release (DR/EC) 40 mg PO DAILY@0600 Qty: 30 3RF topiramate [Topamax] 50 mg tablet 50 mg PO BID@0800,1700 Qty: 60 3RF oxycodone-acetaminophen 5-325 mg tablet 1 tab PO Q6H PRN (Reason: Pain) 30 Days Qty: 120 0RF acetaminophen [Tylenol] 325 mg Tablet 650 mg PO Q6H PRN (Reason: Pain) 0RF prednisone 10 mg tablet 10 mg PO BID 0RF Discharge Orders: Discharge Order (Routine); Ordered 02/08/22 Ordered By: Tania Scott Referrals: Willie Louis MD [Primary Care Provider] - 02/15/22 9:00 am Discharge Diet: Cardiac Patient Instructions: Chest Pain (GEN) Discharge Attestations Time Spent in Discharge Care*: less than 30 min Quality Metrics Clinical Quality Measures [ No reported AMI, CVA or VTE this stay] Coding Level of Care Code Acute Chg FW DC note Diagnoses Atypical chest pain R07.89 Numbness of face R20.0 Numbness and tingling in left arm R20.0; R20.2
[2022-02-08] MEDS: pantoprazole DR 40 mg Tablet PO (06:42)
[2022-02-08] MEDS: oxyCODONE-APAP 5-325 mg Tablet 1 TAB PO ×2 (06:44→16:30)
--- NOTE | 2022-02-08 06:53 | ECG_ITS ---
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 Interpretive Statements NAME OF STUDY: LEXISCAN SESTAMIBI STRESS TEST INDICATION: Chest Pain PROCEDURE: At the baseline, the blood pressure was 103/57 mmHg, oxygen saturation 92% with a heart rate of 64 bpm. The electrocardiogram showed normal sinus rhythm, normal axis. Poor anterior R wave progression. T wave inversion in anterior leads. The Lexiscan was infused over a period of 20 seconds. A total of 0.4 milligrams of Lexiscan was infused. The stress phase was continued for a total of 5 minutes. Heart rate at the end of the stress phase was 80 bpm, oxygen saturation 93% with a blood pressure of 113/68 mmHg. The EKG at the peak infusion revealed no significant ST-T wave changes. The study was terminated protocol completion. Sestamibi was injected 20 seconds after the Lexiscan infusion. Blood pressure at the end of the recovery phase was 115/65 mmHg, oxygen saturation 92% with a heart rate of 73 beats per minute. CONCLUSION: 1. No significant EKG changes with the LexiScan infusion. 2. No LexiScan induced chest pain or cardiac arrhythmia. 3. Normal blood pressure and heart rate response. 4. Sestamibi/sestamibi perfusion scan pending; see separate report. Electronically Signed On 02-10-2022 12:42:25 CDT by Amanda Pelaez M.D. [id number]
[2022-02-08] MEDS: metoprolol tartrate 25 mg Tablet PO (09:02)
[2022-02-08] MEDS: apixaban 5 mg Tablet PO (09:03)
[2022-02-08] MEDS: predniSONE 10 mg Tablet PO (09:04)
[2022-02-08] MEDS: topiramate 25 mg Tablet 50 MG PO (09:09)
--- NOTE | 2022-02-08 11:58 | PC.CHAP ---
Pastoral Care Encounter/Spiritual Assessment Type of Contact [] Declined mailing manager visit [] Patient/Family/Request visit [] Outpatient visit [] Follow-up visit [] Physician referral [] Code/Alert [x] Routine visit [] Staff referral [] Actively dying [] Patient sleeping [] Family support [] [] Out of room [] Palliative care [] [] Receiving care in room [] Pre-surgical visit [] Trauma [] Long length of stay [] ICU visit [] Other: Relational/Emotional Strength [x] Patient feels connected with others/family/visitors/staff [] Distress [] Loneliness/isolation [] Abandonment Spirituality of Patient []x Person of Ilvia [] Attends Lutheran of their Livia [x] Believes in Prayer [] Reads Bible or Taoist materials [] There are Spiritual issues to be addressed Beef Pluck Trimmer Interventions [x] Prayer [] Active listening [] Non-anxious presence [] Spiritual/emotional support [] Crisis/trauma care [] Spiritual counseling [] Bereavement support [] Provided bereavement packet [] Provided Bible/devotional materials [] Provided toy/stuffed animal, coloring book to patient or family member [] Provided Communion [] Anointing/[place] [] Salvation [x] Completed spiritual assessment [] Other: Impact on Illness or Injury [] Angry [] Fearful [] Anxious [] Often cries [] Exhaustion [] Unable to work [] Unable to attend orthodox [] Unable to walk/stand [] Unable to read [] Unable to drive [] Unable to eat/drink [] Unable to sleep [] Unable to be with family [] Patient intubated [] Other: Summary Time spent with patient
[2022-02-08] MEDS: regadenoson 0.4 Mg/5 ml Syringe IVP (13:12)
--- NOTE | 2022-02-08 16:49 | PC.NURSE ---
called report to Chris Keane to Salena Ngo LPN
--- NOTE | 2022-02-08 21:09 | NMCV_ITS ---
NM monik perf SPECT r/s* [id number] Patience Rinaldi Age: 51 Gender: F : 1970 Exam Date: 02/08/2022 12:11 Ordering Phys: Tania Scott MD Technologist: KARY Guidry Exam Location: [facility] Indications: CHEST PAIN SHORTNESS OF BREATH STRESS TEST Please [facility] IMAGE PROTOCOL Rest/Stress 1 Lexiscan Day Radiopharmaceutical Dose (mCi) Administration Site Administered by Rest: Tc-99m 11.0 IV KARY Guidry Sestamibi Stress:Tc-99m 33.0 IV KARY Dhillon Sestamibi Rest: 08-Feb-2022 60 Discovery 630 Stress: 08-Feb-2022 30 Discovery 630 0.4mg Lexiscan. Supine position only as patient was unable to lay prone. SPECT RESULTS Technical Quality: Good Raw Data Analysis: Breast attenuation, Soft tissue attenuation Image Corrections: No attenuation or motion correction applied Summed Stress Score: 6 Summed Rest Score: 9 Summed Difference Score: 0 PERFUSION FINDINGS Medium sized perfusion abnormality of mild severity of basal to apical inferior, basal to mid inferolateral and apical lateral hussein on rest with somewhat improved tracer uptake in inferior wall on stress images. FUNCTIONAL RESULTS (calculated via Gated SPECT) Stress Image LV EF (%): 75 Stress EDV (mL):73 TID: 1.19 Stress ESV (mL):18 FUNCTIONAL FINDINGS: The left ventricle is normal in size. Transient Ischemia Dilatation of 1.2. There is normal left ventricular systolic function. The left ventricular ejection fraction is normal with a value of 75%. There is normal left ventricular wall thickening. IMPRESSIONS 1. Medium sized perfusion abnormality of mild severity of basal to apical inferior, basal to mid inferolateral and apical lateral hussein. This may represent attenuation artifact or myocardial infarction in circumflex artery territory. 2. Overall left ventricular systolic function is normal without regional wall motion abnormalities, LVEF=75%. 3. Transient ischemic dilation index mildly increased of 1.2. This may represent hypertensive response/subendocardial ischemia. Clinical correlation is advised. 4. No coronary ischemia based on the study. Amanda Pelaez MD (Electronically Signed) Final Date: 08 February 2022 14:44 S
== END 2022-02-08 16:20 | disposition skilled nursing facility (03) ==
LOC: ER 17:17 → MEDSURG 20:29
PROVIDERS: Admitting Provider Internal Medicine; Emergency Provider Emergency Medicine; PCP Internal Medicine; Visit Provider Internal Medicine
DX: R07.89 Other chest pain (principal); R20.0 Anesthesia of skin; R20.2 Paresthesia of skin; Z79.899 Other long term (current) drug therapy; Z86.14 Personal history of Methicillin resistant Staphylococcus aureus infection; E78.5 Hyperlipidemia, unspecified; I10 Essential (primary) hypertension; M06.9 Rheumatoid arthritis, unspecified; Z86.718 Personal history of other venous thrombosis and embolism; E66.9 Obesity, unspecified; Z68.41 Body mass index [BMI] 40.0-44.9, adult
CPT/HCPCS: 36415; 70450; 71045; 78452; 80048; 83880; 84484; 85025; 85378; 93005; 93017; 93306; 93970; 96374; 99285; A9500; G0378; J2270; J2785; J7512

== ENCOUNTER → 2022-03-30 13:48 | Outpatient (BNVA) | payer MEDICAID, SELFPAY | PROVIDERS: PCP Internal Medicine; Visit Provider Internal Medicine Rheumatology | DX: M05.79 Rheumatoid arthritis with rheumatoid factor of multiple sites without organ or systems involvement (principal); Z79.899 Other long term (current) drug therapy; Z71.89 Other specified counseling; Z96.652 Presence of left artificial knee joint | CPT/HCPCS: 99214 ==

== ENCOUNTER 2022-05-13 17:00 | Outpatient (CLI) | payer MEDICAID, SELFPAY ==
[2022-05-13 17:23] LABS: Basophils % 0.3 %; Eosinophils # 0.1 10^3/uL (0.0-0.8); Eosinophils % 0.8 %; Hematocrit 31.8 % (37.0-47.0); Hemoglobin 9.6 g/dL (11.5-15.3); Lymphocytes # 1.6 10^3/uL (0.8-4.8); Mean Corpuscular HGB Conc 30.2 g/dL (30.0-36.0); Mean Corpuscular Hemoglobin 29.4 pg (28.0-34.0); Mean Corpuscular Volume 97.2 fl (81-99); Mean Platelet Volume 13.1 fL (7.4-10.4); Monocytes # 0.2 10^3/uL (0.2-0.9); Monocytes % 2.5 %; Neutrophils # 4.27 10^3/uL (1.8-7.7); Neutrophils % 69.7 %; Nucleated Red Blood Cells % 0 %; Platelet Count 38 10^3/cmm (130-400); Red Blood Count 3.27 10^6/uL (4.1-5.3); Red Cell Distribution Width 16.1 % (12.1-15.1); White Blood Count 6.1 10^3/uL (4.0-10.0)
[2022-05-13 17:27] LABS: Bilirubin Urine Negative (Negative); Blood Urine Negative (Negative); Glucose Urine UA Negative (Normal); Ketones Urine Trace (Negative); Leukocyte Esterase Urine Negative (Negative); Nitrate Urine Negative; Protein Urine Trace (Negative); Specific Gravity, Urine 1.015 (1.005-1.030); Urine Appearance Cloudy (CLEAR); Urine Color Yellow (Yellow); pH Urine 7.5 (5-7)
[2022-05-13 17:28] LABS: Add Urine Microscopic? YES
[2022-05-13 17:34] LABS: RBC Urine 0-4 /hpf (0-2); Squamous Epithelial Cell Urine 0-4 /hpf (0-5)
[2022-05-13 17:35] LABS: Add Urine Culture? Yes; Bacteria Urine 4+ /hpf
[2022-05-13 17:55] LABS: Slide Review Slide Review Perform
[2022-05-13 17:57] LABS: Alanine Aminotransferase 36 U/L (0-33); Albumin Level 3.3 g/dL (3.5-5.2); Alkaline Phosphatase 97 U/L (35-105); Aspartate Amino Transferase 31 U/L (0-32); Blood Urea Nitrogen 23 mg/dL (6-20); Calcium 8.3 mg/dL (8.5-10.5); Carbon Dioxide 25 mmol/L (22-29); Chloride 95 mmol/L (98-107); Globulin 2.4 g/dL (1.3-4.6); Glucose 78 mg/dL (65-115); Osmolality Calculated 283 mOsm/kg (285-295); Sodium 135 mmol/L (136-145); Total Bilirubin 0.7 mg/dL (0.15-1.2); Total Protein 5.7 g/dL (6.6-8.7)
== END 2022-05-13 17:01 | disposition home or self-care (01) ==
PROVIDERS: PCP Internal Medicine; Visit Provider Internal Medicine
DX: R41.82 Altered mental status, unspecified (principal)
CPT/HCPCS: 80053; 81001; 85025; 87077; 87086; 87186

== ENCOUNTER 2022-05-13 18:13 | Inpatient (IN) | payer MEDICAID, SELFPAY ==
[2022-05-13] VITALS (7 sets, daily range): BP systolic 90–105; BP diastolic 53–73; PULSE 87–98; RESP 17–25; TEMP 36.6; O2SAT 97–100
--- NOTE | 2022-05-13 18:28 | XRR_ITS ---
PROCEDURE INFORMATION: Exam: XR Chest Exam date and time: 05/13/2022 6:47 PM Age: 52 years old Clinical indication: Shortness of breath; Additional info: Dyspnea TECHNIQUE: Imaging protocol: Radiologic exam of the chest. Views: 1 view. COMPARISON: CR XR chest 1V portable [id number] 02/07/2022 3:17 PM FINDINGS: Tubes, catheters and devices: Right chest port terminates in the proximal SVC. Lungs: Calcified granuloma in the left lung base. No consolidation. Pleural spaces: No pleural effusion. No pneumothorax. Heart/Mediastinum: No cardiomegaly. Bones/joints: Reverse left total shoulder arthroplasty noted. Visualized osseous structures are intact. XR/XR chest 1V portable [id number] IMPRESSION: No acute findings.
--- NOTE | 2022-05-13 18:46 | ED_ITS ---
HPI - General Adult General: Chief complaint: Altered Mental Status Stated complaint: CONFUSION Time Seen by Provider: 05/13/22 18:18 History of Present Illness: Patient is a 50-year-old female with history of morbid obesity, rheumatoid arthritis, on immunosuppressants, chronically be dbound on Eliquis, hyperlipidemia, prior MRSA infection presenting to the emergency room with complaints of fever, chills, headache and concerns of altered mental status from halfway. Per EMS, patient was noted to be confused and AAO x1 earlier today. However on arrival, patient is AAOx3, ans wering all my questions appropriately. Patient complains of genralized weakness, chills, cough, and back pain. Patient reports thoracic and lumbar back pain. Is on multiple immunosuppressant agents for RA including nasal, methotrexate, and Humira. Onset:earlier today Duration:ongoing Location:home Severity:moderate Associated symptoms: Deny chest pain, dyspnea, nausea, palpitations or vomiting Review of Systems 2 Const: Reports: chills, body aches and other (+generalized weakness); Denies: fever(s) Eyes: Denies: change in vision ENMT: Denies: mouth pain Card: Denies: chest pain or palpitations Resp: Denies: dyspnea or non-productive cough GI: Denies: abdominal pain, nausea, vomiting or diarrhea : Denies: dysuria Musc: Reports: back pain (+thoracic and lumbar back pain); Denies: extremity pain Skin/Breast: Reports: new lesions (+L hip skin redness and pain) Neuro: Denies: weakness in extremities Psych: Reports: other (Normal mood) Piyush/Lymph: Denies: easy bruising PFSH ED PFSH: Medical History Anemia Atypical chest pain Constipation Depression Edema GERD (gastroesophageal reflux disease) High risk medication use History of MRSA infection Hyperlipidemia Hypertension Immunization counseling Light headedness Numbness and tingling in left arm Numbness of face Rheumatoid arthritis in remission Seropositive rheumatoid arthritis of multiple sites Surgical History History of total knee arthroplasty Family History Denies family history of Anesthesia complication Bleeding disorder Social History Smoking and tobacco status: never smoked Second hand smoke exposure: No Alcohol intake: never Adopted: No Caregiver/support person: No Lives independently: Yes Household members: none Housing: Correction Marital status: Single History of recent travel: No Physical Exam Const: COMMON NORMALS: alert HENMT: COMMON NORMALS: atraumatic HEAD & SCALP: atraumatic MOUTH: moist mucous membranes not abnormal Eye: COMMON NORMALS: EOMs intact bilaterally and conjunctivae normal C ONJUNCTIVA: Yes conjunctivae normal Neck/C-Spine: COMMON NORMALS: full ROM and supple Resp: COMMON NORMALS: normal respiratory effort and clear to auscultation bilaterally AUSCULTATION: clear to auscultation bilaterally Cardio: COMMON NORMALS: regular rate RATE: regular rate GI: COMMON NORMALS: Soft to palpation and non-tender PALPATION: Yes Soft to palpation Back/Pelvis: OTHER: +t11-12 bony tenderness to palpation, L3-L4 bony tenderness to palpation Extremity: COMMON NORMALS: full ROM Neuro: SENSORIUM/ORIENTATION: Yes alert MOTOR EXAM: No Abnormal motor strength present and Other motor observations present (no focal motor deficits) Psych: COMMON NORMALS: speech normal SPEECH: Yes normal speech MOOD & AFFECT: Yes euthymic mood Skin: NARRATIVE SKIN EXAM: + Mild erythema with skin erosion of the left hip and glute area Course Vital Signs: Vital signs: Vital Signs Temperature 97.8 F 05/13/22 18:35 Pulse Rate 94 05/13/22 22:50 Respiratory Rate 17 05/13/22 22:50 Blood Pressure 94/56 05/13/22 22:50 Pulse Oximetry 100 05/13/22 22:50 Oxygen Delivery Me thod 05/13/22 22:50 Oxygen Flow Rate 2 05/13/22 19:36 [facility] - General Adult Medical Decision Making Patient is a 50-year-old female with history of morbid obesity, rheumatoid arthritis, on immunosuppressants, chronically bedbound on Eliquis, hyperlipidemia, prior MRSA infection presenting to the emergency room with c omplaints of fever, chills, back pain and concerns of altered mental status from halfway. On physical exam, patient has T11-T12 tenderness palpation and L3- L4 bony tenderness palpation. Patient also have left hip skin erosion with erythema. Patient is white count 6.3. Patient is noted to have a new creatinine elevation 2.9 up from baseline of 1.0. Patient's BUN to creatinine ratio indicate this is likely intrinsic kidney injury. Suspect this is likely secondary to methotrexate use and other medication use. Patient received 1 L of NS. Given history immunosuppression new onset of back pain since yesterday, I ordered MRI which did not show any signs of focal pathologies. Patient's COVID is pending at this time. Her chest appears to be clear. UA is pending at this time. Disposition: admission Lab Data : 05/13/22 19:33 05/13/22 19:33 Radiology Impressions Chest X-Ray 05/13/22 18:28 IMPRESSION: No acute findings. Cervical Spine MRI 05/13/22 20:37 IMPRESSION: 1. Motion limited exam. No acute findings. 2. Moderate multilevel degenerative changes/degenerative disc disease centered within the mid and lower cervical spine with moderate central canal stenosis at C5-C6. Lumbar Spine MRI 05/13/22 20:37 IMPRESSION: No acute findings. Thoracic Spine MRI 05/13/22 20:37 IMPRESSION: No acute findings. Laboratory Results WBC 6.3 10^3/uL (4.0-10.0) 05/13/22 19:33 RBC 3.24 10^6/uL (4.1-5.3) L 05/13/22 19:33 Hgb 9.7 g/dL (11.5-15.3) L 05/13/22 19:33 Hct 31.1 % (37.0-47.0) L 05/13/22 19:33 MCV 96.0 fl (81-99) 05/13/22 19:33 MCH 29.9 pg (28.0-34.0) 05/13/22 19:33 MCHC 31.2 g/dL (30.0-36.0) 05/13/22 19:33 RDW 16.2 % (12.1-15.1) H 05/13/22 19:33 Plt Count 35 10^3/cmm (130-400) L 05/13/22 19:33 MPV 13.5 fL (7.4-10.4) H 05/13/22 19:33 Neut % (Auto) 87.1 % 05/13/22 19:33 Lymph % (Auto) 9.0 % 05/13/22 19:33 [place] % (Auto) 2.1 % 05/13/22 19:33 Eos % (Auto) 0.2 % 05/13/22 19:33 Baso % (Auto) 0.3 % 05/13/22 19:33 Neut # (Auto) 5.52 10^3/uL (1.8-7.7) 05/13/22 19:33 Lymph # (Auto) 0.6 10^3/uL (0.8-4.8) L 05/13/22 19:33 [place] # (Auto) 0.1 10^3/uL (0.2-0.9) L 05/13/22 19:33 Eos # (Auto) 0.0 10^3/uL (0.0-0.8) 05/13/22 19:33 Baso # (Auto) 0.0 10^3/uL (0.0-0.1) 05/13/22 19:33 Nucleated RBC % (auto) 0 % 05/13/22 19:33 Nucleated RBCs # 0.0 /100WBC 05/13/22 19:33 Sodium 132 mmol/L (136-145) L 05/13/22 19:33 Potassium 3.7 mmol/L (3.5-5.1) 05/13/22 19:33 Chloride 96 mmol/L (98-107) L 05/13/22 19:33 Carbon Dioxide 21 mmol/L (22-29) L 05/13/22 19:33 Anion Gap 18.7 (5-19) 05/13/22 19:33 BUN 27 mg/dL (6-20) H 05/13/22 19:33 Creatinine 2.9 mg/dL (0.5-0.9) H 05/13/22 19:33 GFR Calculation 16.9 mL/min (90-130) L 05/13/22 19:33 Glucose 105 mg/dL (65-115) 05/13/22 19:33 Calculated Osmolality 279 mOsm/kg (285-295) L 05/13/22 19:33 Calcium 8.5 mg/dL (8.5-10.5) 05/13/22 19:33 Total Bilirubin 0.7 mg/dL (0.15-1.2) 05/13/22 19:33 AST 35 U/L (0-32) H 05/13/22 19:33 ALT 33 U/L (0-33) 05/13/22 19:33 Alkaline Phosphatase 89 U/L (35-105) 05/13/22 19:33 Troponin T Baseline 38 ng/L (0-10) H 05/13/22 19:33 Troponin T 120 Minute 37.65 ng/L (0-10) H 05/13/22 21:15 Delta Troponin T -0.35 ABS# (0-10) L 05/13/22 21:15 NT-Pro-B Natriuret Pep 2956 pg/mL (0-125) H 05/13/22 19:33 Total Protein 6.4 g/dL (6.6-8.7) L 05/13/22 19:33 Albumin 3.1 g/dL (3.5-5.2) L 05/13/22 19:33 Globulin 3.3 g/dL (1.3-4.6) 05/13/22 19:33 Lipase 17 U/L (13-60) 05/13/22 19:33 Nasal Influ A H1 2009 PCR Not detected (NOT DETECT) 05/13/22 19:33 Salicylates < 0.3 mg/dL (3-10) L 05/13/22 19:33 Acetaminophen < 5.0 ug/mL (10-30) L 05/13/22 19:33 Coronavirus 229E (PCR) Not detected (NOT DETECT) 05/13/22 19:33 Influenza A (H1) PCR Not detected (NOT DETECT) 05/13/22 19:33 Influenza A (H3) PCR Not detected (NOT DETECT) 05/13/22 19:33 Influenza Type A (PCR) Not detected (NOT DETECT) 05/13/22 19:33 Influenza Type B (PCR) Not detected (NOT DETECT) 05/13/22 19:33 SARS-CoV-2 (PCR) Not detected (NOT DETECT) 05/13/22 19:33 Imaging Data Other Imaging: Radiologist's impression: [address] [address] Magnetic Resonance Report Signed Patient: Patience Rinaldi Unit #: [id number] : 1970 Age/Sex: 52 / F ADM Date: 05/13/22 Loc: ER Room/Bed: Attending Dr: Ordering Provider/Ordering MD: Cira Johnson MD Date of Service: 05/13/22 Procedure(s): MR cervical spin wo con* [id number] Accession Number(s): [id number] Report Number: [id number] PROCEDURE INFORMATION: Exam: MR Cervical Spine Without Contrast Exam date and time: 05/13/2022 9:35 PM Age: 52 years old Clinical indication: Neck pain; Additional info: Back pain on immunosuppressants TECHNIQUE: Imaging protocol: Magnetic resonance imaging of the cervical spine without contrast. COMPARISON: CT head wo con* [id number] 02/07/2022 5:40 PM FINDINGS: Limitations: There is motion artifact on several sequences which limits fine detailed evaluation of the spine. Bones/joints: Normal marrow signal. No acute fracture. Moderate multilevel uncovertebral hypertrophy centered within the C4-C7 segment. Spinal cord: Apparent linear hyperintense signal within the cord most likely reflects Tracy artifact. No definite signs of cord compression. Discs/Spinal canal/Neural foramina: Multilevel degenerative disc disease centered in the C3-C7 segment. Moderate central canal stenosis at C5-C6. Vasculature: Expected flow voids in the vertebral arteries.? Soft tissues: Unremarkable MR/MR cervical spin wo con* [id number] IMPRESSION: 1. Motion limited exam. No acute findings. 2. Moderate multilevel degenerative changes/degenerative disc disease centered within the mid and lower cervical spine with moderate central canal stenosis at C5-C6. ? Dictated By: Pankaj Kaiser DO Signed By: Pankaj Kaiser DO Signed Date/Time: 05/13/222304 DD/ [address] [place] [address] Magnetic Resonance Report Signed Patient: Patience Rinaldi Unit #: [id number] : 1970 Age/Sex: 52 / F ADM Date: 05/13/22 Loc: ER Room/Bed: Attending Dr: Ordering Provider/Ordering MD: Cira Johnson MD Date of Service: 05/13/22 Procedure(s): MR thoracic spin wo con* [id number] Accession Number(s): [id number] Report Number: [id number] PROCEDURE INFORMATION: Exam: MR Thoracic Spine Without Contrast Exam date and time: 05/13/2022 9:57 PM Age: 52 years old Clinical indication: Pain in thoracic spine; Additional info: Back pain TECHNIQUE: Imaging protocol: Magnetic resonance imaging of the thoracic spine without contrast. COMPARISON: MR cervical spin wo con* [id number] 05/13/2022 9:35 PM FINDINGS: Bones/joints: Normal marrow signal. No acute fracture. Prominent Schmorl's node along the superior endplate of T11. Spinal cord: Normal signal. No cord compression. Discs/Spinal canal/Neural foramina:? No significant disc disease. No significant spinal canal stenosis. Soft tissues: Unremarkable. MR/MR thoracic spin wo con* [id number] IMPRESSION: No acute findings. ? Dictated By: Pankaj Kaiser DO Signed By: Pankaj Kaiser DO Signed Date/Time: 05/13/222232 DD/ [address] [place] [address] Magnetic Resonance Report Signed Patient: Patience Rinaldi Unit #: [id number] : 1970 Age/Sex: 52 / F ADM Date: 05/13/22 Loc: ER Room/Bed: Attending Dr: Ordering Provider/Ordering MD: Cira Johnson MD Date of Service: 05/13/22 Procedure(s): MR lumbar spine wo con* [id number] Accession Number(s): [id number] Report Number: [id number] PROCEDURE INFORMATION: Exam: MR Lumbar Spine Without Contrast. Exam date and time: 05/13/2022 10:15 PM Age: 52 years old Clinical indication: Low back pain; Additional info: Back pain, ra on immunsupressants TECHNIQUE: Imaging protocol: Magnetic resonance imaging of the lumbar spine without contrast. COMPARISON: CR XR lumbar spine f/e only [id number] 06/04/2015 2:53 PM FINDINGS: Bones/joints: Normal marrow signal. No acute fracture. Spinal cord: Visualized cord, conus medullaris and cauda equina are unremarkable without compression. Discs/Spinal canal/Neural foramina: Mild posterior disc bulge at L5-S1. Otherwise, no significant disc disease. No significant spinal canal stenosis. No neural foraminal stenosis. Soft tissues: Unremarkable. MR/MR lumbar spine wo con* [id number] IMPRESSION: No acute findings. ? Dictated By: Pankaj Kaiser DO Signed By: Pankaj Kaiser DO Signed Date/Time: 05/13/222252 DD/ [address] [address] XRay Report Signed Patient: Patience Rinaldi Unit #: [id number] : 1970 Age/Sex: 52 / F ADM Date: 05/13/22 Loc: ER Room/Bed: Attending Dr: Ordering Provider/Ordering MD: Cira Johnson MD Date of Service: 05/13/22 Procedure(s): XR chest 1V portable [id number] Accession Number(s): [id number] Report Number: [id number] PROCEDURE INFORMATION: Exam: XR Chest Exam date and time: 05/13/2022 6:47 PM Age: 52 years old Clinical indication: Shortness of breath; Additional info: Dyspnea TECHNIQUE: Imaging protocol: Radiologic exam of the chest. Views: 1 view. COMPARISON: CR XR chest 1V portable [id number] 02/07/2022 3:17 PM FINDINGS: Tubes, catheters and devices: Right chest port terminates in the proximal SVC. Lungs: Calcified granuloma in the left lung base. No consolidation. Pleural spaces: No pleural effusion. No pneumothorax. Heart/Mediastinum: No cardiomegaly. Bones/joints: Reverse left total shoulder arthroplasty noted. Visualized osseous structures are intact. XR/XR chest 1V portable [id number] IMPRESSION: No acute findings. ? Dictated By: Pankaj Kaiser DO Signed By: Pankaj Kaiser DO Signed Date/Time: 05/13/22 190 DD/ 1847 Discharge Plan Discharge Patient Disposition: Admitted As Inpatient Clinical Impression: Acute renal failure, Fatigue, Generalized weakness Condition: Stable Coding Level of Care Code ED Geophysical Computer for Chg Fwd Exam Comprehensive
--- NOTE | 2022-05-13 18:54 | ECG_ITS ---
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 Measurements Intervals [place] Rate: 97 P: 22 IL: 143 QRS: 5 QRSD: 94 T: 12 QT: 341 QTc: 434 Interpretive Statements SINUS RHYTHM [address] DEVIATION AND MODERATE T-WAVE ABNORMALITY, CONSIDER ANTERIOR ISCHEMIA [-0.1+ mV T-WAVE IN V3/V4] Compared to ECG 02/07/2022 21:19:47 T-wave abnormality now present Possible ischemia now present Electronically Signed On 05-13-2022 19:09:59 CDT by Nevin Chávez M.D. [id number]
[2022-05-13 19:39] LABS: Basophils % 0.3 %; Eosinophils % 0.2 %; Hematocrit 31.1 % (37.0-47.0); Hemoglobin 9.7 g/dL (11.5-15.3); Lymphocytes # 0.6 10^3/uL (0.8-4.8); Mean Corpuscular HGB Conc 31.2 g/dL (30.0-36.0); Mean Corpuscular Hemoglobin 29.9 pg (28.0-34.0); Mean Platelet Volume 13.5 fL (7.4-10.4); Monocytes # 0.1 10^3/uL (0.2-0.9); Monocytes % 2.1 %; Neutrophils # 5.52 10^3/uL (1.8-7.7); Neutrophils % 87.1 %; Nucleated Red Blood Cells % 0 %; Platelet Count 35 10^3/cmm (130-400); Red Blood Count 3.24 10^6/uL (4.1-5.3); Red Cell Distribution Width 16.2 % (12.1-15.1); White Blood Count 6.3 10^3/uL (4.0-10.0)
[2022-05-13 19:48] LABS: Slide Review Slide Review Perform
[2022-05-13 20:02] LABS: Troponin(5th) Baseline 38 ng/L (0-10)
[2022-05-13 20:11] LABS: Alanine Aminotransferase 33 U/L (0-33); Albumin Level 3.1 g/dL (3.5-5.2); Alkaline Phosphatase 89 U/L (35-105); Anion Gap 18.7 (5-19); Aspartate Amino Transferase 35 U/L (0-32); Blood Urea Nitrogen 27 mg/dL (6-20); Calcium 8.5 mg/dL (8.5-10.5); Carbon Dioxide 21 mmol/L (22-29); Chloride 96 mmol/L (98-107); Globulin 3.3 g/dL (1.3-4.6); Glomerular Filtration Rate 16.9 mL/min (90-130); Glucose 105 mg/dL (65-115); Lipase 17 U/L (13-60); NT Pro B Type Natriuretic Pept 2956 pg/mL (0-125); Osmolality Calculated 279 mOsm/kg (285-295); Potassium 3.7 mmol/L (3.5-5.1); Sodium 132 mmol/L (136-145); Total Bilirubin 0.7 mg/dL (0.15-1.2); Total Protein 6.4 g/dL (6.6-8.7)
[2022-05-13 20:14] LABS: Acetaminophen < 5.0 ug/mL (10-30); Salicylate < 0.3 mg/dL (3-10)
--- NOTE | 2022-05-13 20:28 | ECG_ITS ---
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 Measurements Intervals [place] Rate: 93 P: 1 MO: 131 QRS: 30 QRSD: 100 T: 0 QT: 361 QTc: 449 Interpretive Statements SINUS RHYTHM ST DEVIATION AND MODERATE T-WAVE ABNORMALITY, CONSIDER ANTERIOR ISCHEMIA [-0.1+ mV T-WAVE IN V3/V4] Compared to ECG 05/13/2022 18:54:42 No significant changes Electronically Signed On 05-15-2022 22:08:11 CDT by Nasir Sr M.D. [id number]
--- NOTE | 2022-05-13 20:37 | MRR_ITS ---
PROCEDURE INFORMATION: Exam: MR Lumbar Spine Without Contrast. Exam date and time: 05/13/2022 10:15 PM Age: 52 years old Clinical indication: Low back pain; Additional info: Back pain, ra on immunsupressants TECHNIQUE: Imaging protocol: Magnetic resonance imaging of the lumbar spine without contrast. COMPARISON: CR XR lumbar spine f/e only [id number] 06/04/2015 2:53 PM FINDINGS: Bones/joints: Normal marrow signal. No acute fracture. Spinal cord: Visualized cord, conus medullaris and cauda equina are unremarkable without compression. Discs/Spinal canal/Neural foramina: Mild posterior disc bulge at L5-S1. Otherwise, no significant disc disease. No significant spinal canal stenosis. No neural foraminal stenosis. Soft tissues: Unremarkable. MR/MR lumbar spine wo con* [id number] IMPRESSION: No acute findings.
--- NOTE | 2022-05-13 20:37 | MRR_ITS ---
PROCEDURE INFORMATION: Exam: MR Cervical Spine Without Contrast Exam date and time: 05/13/2022 9:35 PM Age: 52 years old Clinical indication: Neck pain; Additional info: Back pain on immunosuppressants TECHNIQUE: Imaging protocol: Magnetic resonance imaging of the cervical spine without contrast. COMPARISON: CT head wo con* [id number] 02/07/2022 5:40 PM FINDINGS: Limitations: There is motion artifact on several sequences which limits fine detailed evaluation of the spine. Bones/joints: Normal marrow signal. No acute fracture. Moderate multilevel uncovertebral hypertrophy centered within the C4-C7 segment. Spinal cord: Apparent linear hyperintense signal within the cord most likely reflects Tracy artifact. No definite signs of cord compression. Discs/Spinal canal/Neural foramina: Multilevel degenerative disc disease centered in the C3-C7 segment. Moderate central canal stenosis at C5-C6. Vasculature: Expected flow voids in the vertebral arteries. Soft tissues: Unremarkable MR/MR cervical spin wo con* [id number] IMPRESSION: 1. Motion limited exam. No acute findings. 2. Moderate multilevel degenerative changes/degenerative disc disease centered within the mid and lower cervical spine with moderate central canal stenosis at C5-C6.
--- NOTE | 2022-05-13 20:37 | MRR_ITS ---
PROCEDURE INFORMATION: Exam: MR Thoracic Spine Without Contrast Exam date and time: 05/13/2022 9:57 PM Age: 52 years old Clinical indication: Pain in thoracic spine; Additional info: Back pain TECHNIQUE: Imaging protocol: Magnetic resonance imaging of the thoracic spine without contrast. COMPARISON: MR cervical spin wo con* [id number] 05/13/2022 9:35 PM FINDINGS: Bones/joints: Normal marrow signal. No acute fracture. Prominent Schmorl's node along the superior endplate of T11. Spinal cord: Normal signal. No cord compression. Discs/Spinal canal/Neural foramina: No significant disc disease. No significant spinal canal stenosis. Soft tissues: Unremarkable. MR/MR thoracic spin wo con* [id number] IMPRESSION: No acute findings.
[2022-05-13] MEDS: morphine 4 mg/mL SDV 1 mL IVP (20:43)
[2022-05-13 21:28] LABS: Adenovirus Not Detected (NOT DETECT); Chlamydia Pneumoniae Not Detected (NOT DETECT); Coronavirus 229E,HKU1,NL63,OC4 Not Detected (NOT DETECT); Human Metapneumovirus Not Detected (NOT DETECT); Human Rhinovirus/Enterovirus Not Detected (NOT DETECT); Influenza A Not Detected (NOT DETECT); Influenza A H1 Not Detected (NOT DETECT); Influenza A H1-2009 Not Detected (NOT DETECT); Influenza A H3 Not Detected (NOT DETECT); Influenza B Not Detected (NOT DETECT); Mycoplasma Pneumoniae Not Detected (NOT DETECT); Parainfluenza Virus Type 1 Not Detected (NOT DETECT); Parainfluenza Virus Type 2 Not Detected (NOT DETECT); Parainfluenza Virus Type 3 Not Detected (NOT DETECT); Parainfluenza Virus Type 4 Not Detected (NOT DETECT); Respiratory Syncytial Virus A Not Detected (NOT DETECT); Respiratory Syncytial Virus B Not Detected (NOT DETECT); SARS-COV-2 Not Detected (NOT DETECT)
[2022-05-13 21:42] LABS: Troponin 5 2HR 37.65 ng/L (0-10)
[2022-05-13] MEDS: ondansetron 2 mg/ML SDV 2 mL 4 MG IVP (21:43)
[2022-05-13 21:44] LABS: Troponin 5 2HR Delta -0.35 ABS# (0-10)
[2022-05-13 21:48] LABS: Influenza A Not Detected (NOT DETECT); Influenza A H1 Not Detected (NOT DETECT); Influenza A H1-2009 Not Detected (NOT DETECT); Influenza A H3 Not Detected (NOT DETECT); Influenza B Not Detected (NOT DETECT); Results from Genmark
[2022-05-13] MEDS: LORazepam 1 mg Tablet PO (22:40)
[2022-05-13] MEDS: sodium chloride 0.9% 1,000 ML 999 ML IV ×2 (22:44→23:57)
--- NOTE | 2022-05-13 23:19 | PC.NURSE ---
Report to Dorita SANDOVAL
[2022-05-13 23:21] LABS: Bilirubin Urine Small (Negative); Blood Urine Negative (Negative); Glucose Urine UA Negative (Normal); Ketones Urine 1+ (Negative); Leukocyte Esterase Urine 1+ (Negative); Nitrate Urine Negative; Protein Urine 1+ (Negative); Urine Appearance Cloudy (CLEAR); Urine Color Dark yellow (Yellow); pH Urine 6.5 (5-7)
[2022-05-13 23:23] LABS: Add Urine Microscopic? YES
[2022-05-13 23:35] LABS: Add Urine Culture? Yes; Bacteria Urine 4+ /hpf; RBC Urine 0-4 /hpf (0-2); Squamous Epithelial Cell Urine 0-4 /hpf (0-5); WBC Urine 15-25 /hpf (0-5)
--- NOTE | 2022-05-13 23:45 | PM.HP ---
Providers/Chief Complaint Admitting Physician: Joshua Sharma MD Primary Care Provider: Willie Louis MD Chief Complaint: CONFUSION History of Present Illness Patience Rinaldi is a 52 year old female with past medical history of hypertension, seropositive RA, morbid obesity, DVT PE on Eliquis, chronically bedbound, history of prior MRSA infection. Was brought in with chief complaint of fever, chills, back pain, patient reports that she is feeling febrile for the last 2 days along with chills and is also having severe back pain, at shelter there was also concern for altered mental status, when I interacted with the patient she was alert oriented x3. She denied any chest pain shortness of breath nausea vomiting, abdominal pain. Upon arrival in the ER she was worked up for above-mentioned complaint; Pertinent imaging studies: MRI lumbar and thoracic spine: No acute findings: MR cervical spin wo con:?Moderate multilevel degenerative changes/degenerative disc disease centered within the mid and lower cervical spine with moderate central canal stenosis at C5-C6. X-ray chest: No acute findings.. Pertinent labs: WBC 6.3, H&H:9.7/31 , PLT : 35 , serum sodium 132, serum potassium 3.7, BUN and serum creatinine 27/ 2.9, Troponin trend: 38-37 , proBNP 2956 Urinalysis: Urine WBC 15-25, urine bacteria 4+, urine leukocyte esterase 1+, urine nitrate negative COVID PCR negative Review of Systems General: Reports: 10 or more systems reviewed and unremarkable except in HPI and below Const: Reports: fever(s), chills and body aches; Denies: change in appetite or diaphoresis Card: Denies: palpitations, edema or swelling of feet/ankles Resp: Denies: dyspnea, productive cough, wheezing or pain on inspiration GI: Denies: abdominal pain, nausea, vomiting, diarrhea or constipation : Denies: flank pain Musc: Reports: back pain and extremity pain; Denies: extremity swelling Neuro: Denies: headache(s) or confusion Medications/Allergies Home Medications Medication Instructions Recorded Confirmed Last Taken Type apixaban 5 mg tablet (Eliquis) 5 mg PO BID@0800,199910/21/19 05/13/22 02/07/22 History budesonide-formoterol HFA 160 2 puff inhalation BID@0800,199910/21/19 05/13/2222 History mcg-4.5 mcg/actuation aerosol inhaler (Symbicort) denosumab 60 mg/mL subcutaneous 60 mg SUBCUT Q180M 10/21/19 05/13/22 Unknown History syringe (Prolia) docusate sodium 100 mg capsule 200 mg PO DAILY@199910/21/19 05/13/22 02/06/22 History (Colace) fluticasone propionate 50 2 spray intranasal DAILY@79910/21/19 05/13/22 02/07/22 History mcg/actuation nasal spray,suspension (Flonase Allergy Relief) furosemide 40 mg tablet (Lasix) 40 mg PO DAILY@0810/21/19 05/13/22 02/07/22 History gabapentin 300 mg capsule 300 mg PO TID@10/21/19 05/13/22 02/07/22 History metoprolol tartrate 25 mg tablet 25 mg PO BID@08,199910/21/19 05/13/22 02/07/22 History sennosides 8.6 mg capsule (senna) 17.2 mg PO DAILY PRN Constipation 10/21/19 05/13/22 02/07/22 History acetaminophen 325 mg tablet 650 mg PO Q6H PRN Pain 08/04/20 05/13/22 Unknown History (Tylenol) topiramate 50 mg tablet (Topamax) 50 mg PO BID@0800,1700 #60 tabs 01/12/21 05/13/22 02/07/22 Rx pantoprazole 40 mg tablet,delayed 40 mg PO DAILY@0600 #30 tabs 01/12/22 05/13/22 02/07/22 Rx release (Protonix) duloxetine 60 mg capsule,delayed 60 mg PO DAILY@0800 #30 caps 03/30/22 05/13/22 Unknown Rx release (Cymbalta) folic acid 1 mg tablet 1 mg PO DAILY #90 tabs 03/30/22 05/13/22 Unknown Rx insulin syringes (disposable) 1 mL #50 ea 03/30/22 05/13/22 Unknown Rx prednisone 10 mg tablet 10 mg PO DAILY joint pain #90 tabs 03/30/22 05/13/22 Unknown Rx oxycodone-acetaminophen 5 mg-325 1 tab PO Q6H PRN Pain 1 month #120 04/19/22 05/13/22 Unknown Rx mg tablet tabs adalimumab 40 mg/0.8 mL 40 mg SUBCUT Q7D 05/13/22 05/13/22 Unknown History subcutaneous pen kit (Humira Pen) albuterol sulfate 90 mcg/actuation 2 puff inhalation Q4H PRN 05/13/22 05/13/22 Unknown History aerosol inhaler Shortness Of Breath fluconazole 200 mg tablet 200 mg PO DAILY 05/13/22 05/13/22 Unknown History magnesium hydroxide 400 mg/5 mL 30 ml PO DAILY PRN Constipation 05/13/22 05/13/22 Unknown History oral suspension (Milk of Magnesia) methotrexate sodium 25 mg/mL 25 mg SUBCUT Q7D 05/13/22 05/13/22 Unknown History injection solution naloxone 0.4 mg/mL injection 0.4 mg SUBCUT Q2M PRN overdose 05/13/22 05/13/22 Unknown History solution ondansetron HCl 4 mg tablet 4 mg PO BID PRN Nausea 05/13/22 05/13/22 Unknown History tizanidine 2 mg tablet 2 mg PO Q8H PRN Muscle Spasm 05/13/22 05/13/22 Unknown History trazodone 50 mg tablet 25 mg PO EVERY OTHER DAY 05/13/22 05/13/22 Unknown History Allergies Allergy/AdvReac Type Severity Reaction Status Date / Time aspirin Allergy Unknown Verified 05/13/22 18:40 chocolate flavor Allergy ALGY-Hives Verified 05/13/22 18:40 ibuprofen Allergy Unknown Verified 05/13/22 18:40 Iodinated Contrast Media Allergy ALGY-Hives Verified 05/13/22 18:40 Penicillins Allergy Unknown Verified 05/13/22 18:40 PFSH Acute PFSH: Medical History Anemia Atypical chest pain Constipation Depression Edema GERD (gastroesophageal reflux disease) High risk medication use History of MRSA infection Hyperlipidemia Hypertension Immunization counseling Light headedness Numbness and tingling in left arm Numbness of face Rheumatoid arthritis in remission Seropositive rheumatoid arthritis of multiple sites Surgical History History of total knee arthroplasty Family History Denies family history of Anesthesia complication Bleeding disorder Social History Smoking and tobacco status: never smoked Second hand smoke exposure: No Alcohol intake: never Adopted: No Caregiver/support person: No Lives independently: Yes Household members: none Housing: Custodial Marital status: Single History of recent travel: No Vitals/I&O/Wt Last Vital Signs Temp 97.8 F 05/13/22 18:35 Pulse 93 05/13/22 23:34 Resp 20 H 05/13/22 23:34 BP 90/56 05/13/22 23:34 Pulse Ox 97 05/13/22 23:34 O2 Del Method 05/13/22 23:34 O2 Flow Rate 2 05/13/22 23:34 Weight last 48 hrs Weight 115.666 kg Physical Exam Const: COMMON NORMALS: patient oriented x3 HENMT: COMMON NORMALS: normocephalic and atraumatic HEAD & SCALP: normocephalic and atraumatic EXTERNAL EAR: Yes external ears normal Resp: COMMON NORMALS: normal respiratory effort, No retractions, No use of accessory muscles and clear to auscultation bilaterally EFFORT & INSPECTION: Yes symmetric chest movement AUSCULTATION: clear to auscultation bilaterally Cardio: COMMON NORMALS: regular rate, regular rhythm, S1 normal heart sound present, S2 normal heart sound present, No gallops present (Cardio), No murmurs present (Cardio), No rub (Cardio) and Peripheral pulses 2+ throughout RATE: regular rate RHYTHM: regular rhythm HEART SOUNDS: S1 normal heart sound present and S2 normal heart sound present PERIPHERAL PULSES: Peripheral pulses 2+ throughout GI: COMMON NORMALS: Normal to inspection, nondistended, normoactive bowel sounds present, Soft to palpation, non-tender, No hepatosplenomegaly present and no masses AUSCULTATION: Yes normoactive bowel sounds PALPATION: Yes Soft to palpation and Yes No hepatosplenomegaly present RECTAL EXAM: deferred Extremity: COMMON NORMALS: no clubbing, cyanosis or edema and no pedal edema Neuro: COMMON NORMALS: patient oriented x3 Urinary Catheter Management: Kelly: Cath Placed During This Visit: yes Urinary Catheter Date of Insertion: 05/13/22 Urinary Catheter Time of Insertion: 23:17 Data : 05/14/22 03:30 05/14/22 03:30 A&P Assessment and plan (1) Acute kidney injury superimposed on CKD: (2) Fever: (3) Seropositive rheumatoid arthritis of multiple sites: (4) Hypertension: (5) Chronic pain: Qualifiers: Chronic pain type: chronic pain syndrome Qualified Code(s): G89.4 - Chronic pain syndrome (6) UTI (urinary tract infection): (7) Thrombocytopenia: Plan 52 year old female with past medical history of hypertension, seropositive RA, morbid obesity, DVT PE on Eliquis, chronically bedbound, history of prior MRSA infection. Was brought in with chief complaint of fever, chills, back pain, patient reports that she is feeling febrile for the last 2 days along with chills and is also having severe back pain. Assessment: Likely prerenal ZOILA on CKD Fever UTI Thrombocytopenia Hypertension History of DVT/ PE History of prior MRSA infection Plan: Follow random urine sodium Random urine creatinine Random urine protein Urine protein creatinine ratio Monitor intake output charting Avoid nephrotoxic's On IV hydration normal saline Follow blood culture Urine culture Procalcitonin Lactic acid Currently on ceftriaxone Patient currently has thrombocytopenia without any evidence of bleeding no petechiae no purpura We will monitor CBC for now, hold Eliquis. CODE STATUS: Full code Attestations Medical Necessity Statement*: Patient is still in hospital for management of, ZOILA fever UTI, thrombocytopenia. Anticipated length of stay greater than 2 midnight Coding Level of Care Code Acute [employer] Hrms Developer for [facility] Fwd Exam Detailed Diagnoses Acute kidney injury superimposed on CKD N17.9; N18.9 Fever R50.9 Seropositive rheumatoid arthritis of multiple sites M05.79 Hypertension I10 Chronic pain G89.4 Chronic pain type: chronic pain syndrome UTI (urinary tract infection) N39.0 Thrombocytopenia D69.6
[2022-05-13] MEDS: heparin 5,000 unit/mL INJ 1 mL 5000 UNIT SUBCUT (23:59)
[2022-05-14] VITALS (82 sets, daily range): BP systolic 73–143; BP diastolic 44–83; PULSE 10–94; RESP 12–28; TEMP 36.1–37.4; O2SAT 75–100; BMI 42.3
--- NOTE | 2022-05-14 00:28 | ECG_ITS ---
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 Measurements Intervals [place] Rate: 81 P: 31 IN: 146 QRS: 13 QRSD: 103 T: -29 QT: 414 QTc: 482 Interpretive Statements SINUS RHYTHM ST DEVIATION AND MODERATE T-WAVE ABNORMALITY, CONSIDER ANTEROLATERAL ISCHEMIA [-0.1+ mV T-WAVE IN V3-V6] Compared to ECG 05/13/2022 22:52:57 No significant changes Electronically Signed On 05-15-2022 22:07:49 CDT by Nasir Sr M.D. [id number]
--- NOTE | 2022-05-14 00:39 | PC.NURSE ---
Called report to ICU Anali
--- NOTE | 2022-05-14 00:55 | PC.NURSE ---
Pt not going to ICU, ntfd ICU to disregard report. Called report to luis felipe Hidalgo
[2022-05-14] MEDS: sodium chloride 0.9% 1,000 ML 75 ML IV ×2 (02:26→22:47)
[2022-05-14] MEDS: cefTRIAXone 1,000 MG in sodium chloride 0.9% (plus) 50 ML 100 MG IV ×2 (02:27→22:47)
[2022-05-14 03:31] LABS: Creatinine Urine, Random 205 mg/dL (28-217)
[2022-05-14 03:37] LABS: Urine Protein Random 47 mg/dL; Urine Random Sodium 18 mmol/L
[2022-05-14 04:01] LABS: Basophils % 0.3 %; Hemoglobin 8.7 g/dL (11.5-15.3); Lymphocytes % 16.8 %; Mean Corpuscular Hemoglobin 29.7 pg (28.0-34.0); Mean Corpuscular Volume 102.4 fl (81-99); Monocytes # 0.3 10^3/uL (0.2-0.9); Neutrophils # 4.79 10^3/uL (1.8-7.7); Neutrophils % 77.4 %; Nucleated Red Blood Cells % 0 %; Platelet Count 32 10^3/cmm (130-400); Red Blood Count 2.93 10^6/uL (4.1-5.3); Red Cell Distribution Width 16.4 % (12.1-15.1); White Blood Count 6.2 10^3/uL (4.0-10.0)
[2022-05-14 04:21] LABS: Troponin 5 6HR 25.16 ng/L (0-10)
[2022-05-14 04:22] LABS: Alanine Aminotransferase 28 U/L (0-33); Albumin Level 2.4 g/dL (3.5-5.2); Alkaline Phosphatase 82 U/L (35-105); Blood Urea Nitrogen 31 mg/dL (6-20); Calcium 7.9 mg/dL (8.5-10.5); Carbon Dioxide 18 mmol/L (22-29); Chloride 99 mmol/L (98-107); Globulin 3.5 g/dL (1.3-4.6); Glomerular Filtration Rate 16.9 mL/min (90-130); Glucose 88 mg/dL (65-115); Magnesium 1.7 mg/dL (1.7-2.3); Osmolality Calculated 284 mOsm/kg (285-295); Sodium 134 mmol/L (136-145); Total Bilirubin 0.5 mg/dL (0.15-1.2); Total Protein 5.9 g/dL (6.6-8.7)
[2022-05-14 04:23] LABS: Procalcitonin 34.88 ng/mL (0-0.5)
[2022-05-14 04:24] LABS: Anion Gap 20.7 (5-19); Aspartate Amino Transferase 38 U/L (0-32); Potassium 3.7 mmol/L (3.5-5.1)
[2022-05-14 04:28] LABS: Slide Review Slide Review Perform
[2022-05-14] MEDS: pantoprazole DR 40 mg Tablet PO (06:02)
[2022-05-14] MEDS: morphine 4 mg/mL SDV 1 mL IVP (06:03)
[2022-05-14] MEDS: hydrocortisone 100 mg/2 mL SDV IVP ×2 (10:01→20:00)
[2022-05-14] MEDS: sodium chloride 0.9% 500 ML IV (10:01)
[2022-05-14] MEDS: acetaminophen 325 mg Tablet 650 MG PO ×2 (10:16→20:00)
--- NOTE | 2022-05-14 10:21 | P.PN_ITS ---
Subjective Subjective: Patient was hypotensive I will give her an extra bolus Added stress dose steroids She takes 10 mg of prednisone for rheumatoid arthritis on daily basis at long term Patient is stating she is full code in case of an emergency her friend could be contacted Vitals/I&O/Wt Last Vital Signs Temp 98.5 F 05/14/22 08:00 Pulse 94 05/14/22 08:11 Resp 18 05/14/22 08:11 BP 86/50 05/14/22 08:00 Pulse Ox 98 05/14/22 08:11 O2 Del Method 05/14/22 08:11 O2 Flow Rate 2 05/14/22 08:11 05/13/22 05/14/22 05/14/22 22:59 06:59 14:59 Intake Total 2049 Output Total 250 / 250 Balance -250 / -250 2049 Weight last 48 hrs Weight 115.666 kg Physical Exam Narrative: Patient was eating breakfast when I entered the room Awake and alert Pleasant during my evaluation Her skin is extremely thin Skin sloughing noted right axilla with bleeding Left flank area skin sloughing noted as well with active bleeding Mild erythema around groin Intertrigo Abdomen soft Abdominal distention without discomfort or tenderness Awake and alert NIH 0 Extremity contractures noted Venous stasis dermatitis with dry scaly lesions Cushingoid appearance Currently on 2 L nasal cannula Urinary Catheter Management: Kelly: Cath Placed During This Visit: yes Urinary Catheter Date of Insertion: 05/13/22 Urinary Catheter Time of Insertion: 23:17 Data : 05/14/22 03:30 05/14/22 03:30 Micro: Microbiology 05/13/22 05:37 Blood Culture - Preliminary Blood SPECIMEN COLLECTED 05/14/22 03:30 Blood Culture - Preliminary Blood SPECIMEN COLLECTED A&P Assessment and plan (1) Thrombocytopenia: (2) UTI (urinary tract infection): (3) Fever: (4) Acute kidney injury superimposed on CKD: (5) Fatigue: (6) Generalized weakness: (7) Yeast dermatitis: (8) Seropositive rheumatoid arthritis of multiple sites: (9) Steroid dependent: Plan Altered mental status Improved Febrile event at long term secondary to UTI Currently ceftriaxone Thrombocytopenia, uremia, anemia Will check peripheral smear for schistocytes Platelets 32 She has superficial skin bleeding No active signs of stroke She is awake and alert NIH 0 No active chest pain Acute on chronic kidney disease Likely related to volume overload Will need diuresis once blood pressure is stable Adrenal insufficiency? She is steroid-dependent With fever and UTI I will give her stress dose steroids for now Blood pressure is soft We will give her another bolus Back pain No signs of spinal cord compression Full code Chronic macrocytic anemia check B12 and folate Superficial skin bleed secondary to thin skin likely related to chronic steroid use Monitor hemoglobin for now She will probably benefit from a chlorhexidine bath today Patient does use wheelchair on and off, DVT prophylaxis contraindicated due to thrombocytopenia Attestations Medical Necessity Statement*: Anticipating more than 2 midnights in the hospital Time Spent in Patient Care: 35 Coding Level of Care Code Acute Hydrotechnical Specialist for [facility] Fwd Diagnoses Thrombocytopenia D69.6 UTI (urinary tract infection) N39.0 Fever R50.9 Acute kidney injury superimposed on CKD N17.9; N18.9 Fatigue R53.83 Generalized weakness R53.1 Yeast dermatitis B37.2 Seropositive rheumatoid arthritis of multiple sites M05.79 Steroid dependent F19.20
--- NOTE | 2022-05-14 12:24 | PC.NURSE ---
Notified Dr. Scott that patient BP is 86/52 after bolus and steriods ordered. Doctor said to monitor blood pressures and possible transfer to icu in a couple of hours.
--- NOTE | 2022-05-14 14:42 | PC.NURSE ---
icu Pt was taken down in bed to icu 3 and report was given to David earlier.
[2022-05-14] MEDS: midodrine 5 mg TABLET 10 MG PO ×2 (15:15→20:00)
[2022-05-14] MEDS: sodium bicarbonate 650 mg Tablet PO ×2 (15:15→20:00)
[2022-05-14 15:36] LABS: LAB Peripheral Smear Sent for Review
[2022-05-14] MEDS: dexamethasone 4 mg Tablet 30 MG PO (16:21)
--- NOTE | 2022-05-14 16:24 | PC.NURSE ---
Delay in dexamethasone administration. NUrse called [facility] to verify dose of 30 MG. Per lopez in pharmacy, 30 mg within dosing regimen for thrombocytopenia.
[2022-05-14] MEDS: doxycycline 100 mg Tablet PO (18:18)
[2022-05-14] MEDS: chlorhexidine gluconate 4% Btl 118 mL 1 APPLIC TOPICAL (18:19)
--- NOTE | 2022-05-14 18:57 | PC.NURSE ---
Transfer note: Patient recieved form [facility] surge staff at 1435. Patient is alert and oriented to person, place, time, and situation. BP:81/63, HR 87, RR: 18, SPO2: 95%, Temp: 97.7.
[2022-05-15] VITALS (109 sets, daily range): BP systolic 76–187; BP diastolic 42–86; PULSE 49–109; RESP 5–37; TEMP 36.2–36.9; O2SAT 91–100
[2022-05-15] MEDS: morphine 4 mg/mL SDV 1 mL IVP ×4 (01:36→22:28)
[2022-05-15] MEDS: pantoprazole DR 40 mg Tablet PO (05:55)
[2022-05-15 06:12] LABS: Basophils % 0.4 %; Hematocrit 24.1 % (37.0-47.0); Hemoglobin 7.5 g/dL (11.5-15.3); Lymphocytes # 0.2 10^3/uL (0.8-4.8); Lymphocytes % 6.1 %; Mean Corpuscular HGB Conc 31.1 g/dL (30.0-36.0); Mean Corpuscular Hemoglobin 29.4 pg (28.0-34.0); Mean Corpuscular Volume 94.5 fl (81-99); Mean Platelet Volume 13.3 fL (7.4-10.4); Monocytes % 1.1 %; Neutrophils # 2.55 10^3/uL (1.8-7.7); Neutrophils % 91.7 %; Nucleated Red Blood Cells % 0 %; Platelet Count 38 10^3/cmm (130-400); Red Blood Count 2.55 10^6/uL (4.1-5.3); White Blood Count 2.8 10^3/uL (4.0-10.0)
[2022-05-15 06:42] LABS: Blood Urea Nitrogen 24 mg/dL (6-20); Carbon Dioxide 22 mmol/L (22-29); Chloride 105 mmol/L (98-107); Glomerular Filtration Rate 51.8 mL/min (90-130); Glucose 232 mg/dL (65-115); Osmolality Calculated 295 mOsm/kg (285-295); Sodium 137 mmol/L (136-145)
[2022-05-15] MEDS: hydrocortisone 100 mg/2 mL SDV IVP ×2 (09:52→20:07)
[2022-05-15] MEDS: midodrine 5 mg TABLET 10 MG PO ×3 (09:52→20:07)
[2022-05-15] MEDS: doxycycline 100 mg Tablet PO ×2 (09:53→18:09)
[2022-05-15] MEDS: sodium bicarbonate 650 mg Tablet PO (09:53)
--- NOTE | 2022-05-15 10:26 | P.PN_ITS ---
Subjective Subjective: Patient is endorsing feeling better She is on 2 mics of levo I have requested 1 unit PRBC and a bag of platelets Platelets had not improved with Decadron I would not repeat the dose Continue stress dose steroids Vitals/I&O/Wt Last Vital Signs Temp 97.8 F 05/15/22 05:44 Pulse 73 05/15/22 08:35 Resp 17 05/15/22 08:35 BP 83/50 05/14/22 21:45 Pulse Ox 96 05/15/22 08:35 O2 Del Method 05/15/22 08:35 O2 Flow Rate 2 05/15/22 08:35 05/14/22 05/15/22 05/15/22 22:59 06:59 14:59 Intake Total 1800 / 4350 282.576 / 4632.576 Output Total 650 / 650 650 / 1300 Balance 1150 / 3700 -367.424 / 3332.576 Weight last 48 hrs Weight 115.212 kg Weight 115.666 kg Physical Exam Narrative: Morbid obesity Venous stasis dermatitis Scaly lesions on legs without active sign of infection Bleeding has stopped with dressing Abdomen soft Abdominal pannus with intertrigo Awake and alert Nonfocal neuro exam EOMI, PERRLA Currently on 2 L Right axillary skin bleed has stopped Urinary Catheter Management: Kelly: Cath Placed During This Visit: yes Reason for Continuing Indwelling Catheter: Accurate Measurement of Urinary Output in Critically Ill Patients Urinary Catheter Date of Insertion: 05/13/22 Urinary Catheter Time of Insertion: 23:17 Data : 05/15/22 06:02 05/15/22 06:02 Micro: Microbiology 05/13/22 23:14 Urine Culture - Preliminary Urine,Clean Catch Gram Negative Rods Gram Negative Rods#2 05/13/22 05:37 Blood Culture - Preliminary Blood NEGATIVE TO DATE 05/14/22 03:30 Blood Culture - Preliminary Blood NEGATIVE TO DATE A&P Assessment and plan (1) Steroid dependent: (2) Thrombocytopenia: (3) UTI (urinary tract infection): (4) Fever: (5) Acute kidney injury superimposed on CKD: (6) Fatigue: (7) Generalized weakness: (8) Yeast dermatitis: (9) Rheumatoid arthritis in remission: (10) Pancytopenia: Plan Pancytopenia Patient was [facility]ate [facility] the [facility] For rheumatoid arthritis Currently she is on UTI treatment with ceftriaxone and doxycycline for skin infection Hypokalemia: Repleted Hypotension most likely related to adrenal insufficiency Continue steroids Thrombocytopenia Has not improved with Decadron I would not repeat the dose We will give her a unit of PRBC and a bag of platelets No signs of neutropenia, afebrile for now Acute on chronic kidney disease: Creatinine improved significantly Hyperglycemia Related to steroid use History of DVT, Eliquis on hold Attestations Medical Necessity Statement*: Continue medical management Time Spent in Patient Care: 40 Coding Level of Care Code Acute Tumblers Supervisor for g Fwd Diagnoses Steroid dependent F19.20 Thrombocytopenia D69.6 UTI (urinary tract infection) N39.0 Fever R50.9 Acute kidney injury superimposed on CKD N17.9; N18.9 Fatigue R53.83 Generalized weakness R53.1 Yeast dermatitis B37.2 Rheumatoid arthritis in remission M06.9 Pancytopenia D61.818
[2022-05-15] MEDS: sodium chloride 0.9% (100 ml) 100 ML (12:45)
[2022-05-15] MEDS: nystatin powder 15 gm Btl 1 APPLIC TOPICAL ×2 (14:46→18:09)
[2022-05-15] MEDS: chlorhexidine gluconate 4% Btl 118 mL 1 APPLIC TOPICAL (14:47)
--- NOTE | 2022-05-15 17:25 | PC.NURSE ---
SHift SUmmary: Uneventful shift. Patient rested in bed throughout the day. 1-2 MCG of levophed needed, unable to come off of levophed. Bed bath with betasept performed and all dressings changed.
[2022-05-15] MEDS: acetaminophen 325 mg Tablet 650 MG PO (21:37)
[2022-05-15] MEDS: ondansetron 2 mg/ML SDV 2 mL 4 MG IVP (21:44)
[2022-05-15] MEDS: cefTRIAXone 1,000 MG in sodium chloride 0.9% (plus) 50 ML 100 MG IV (23:25)
[2022-05-16] VITALS (53 sets, daily range): BP systolic 91–138; BP diastolic 48–71; PULSE 58–81; RESP 13–24; TEMP 36.4–36.8; O2SAT 92–98
[2022-05-16 03:14] LABS: Hemoglobin 8.7 g/dL (11.5-15.3); Mean Corpuscular Hemoglobin 28.6 pg (28.0-34.0); Monocytes % 0.7 %; Nucleated Red Blood Cells % 0 %; Red Blood Count 3.04 10^6/uL (4.1-5.3)
[2022-05-16 03:38] LABS: Anion Gap 16.3 (5-19); Blood Urea Nitrogen 20 mg/dL (6-20); Calcium 8.5 mg/dL (8.5-10.5); Carbon Dioxide 22 mmol/L (22-29); Chloride 106 mmol/L (98-107); Glomerular Filtration Rate 74.7 mL/min (90-130); Glucose 214 mg/dL (65-115); Osmolality Calculated 301 mOsm/kg (285-295); Potassium 3.3 mmol/L (3.5-5.1); Sodium 141 mmol/L (136-145)
[2022-05-16 03:47] LABS: Slide Review Slide Review Perform
--- NOTE | 2022-05-16 06:55 | PC.NURSE ---
Bedside report completed with Ray. Brandee RN.
[2022-05-16] MEDS: pantoprazole DR 40 mg Tablet PO (07:46)
--- NOTE | 2022-05-16 08:20 | PC.NURSE ---
Notified Dr Scott, in unit, of patient's heart rate dropping to 46 after slowly flushing right port after stopping Levophed. Will continue to monitor.
[2022-05-16] MEDS: midodrine 5 mg TABLET 10 MG PO ×3 (09:10→20:13)
[2022-05-16] MEDS: folic acid 1 mg Tablet PO (09:10)
[2022-05-16] MEDS: fluconazole 100 mg Tablet 200 MG PO (09:10)
[2022-05-16] MEDS: doxycycline 100 mg Tablet PO ×2 (09:10→18:03)
[2022-05-16] MEDS: hydrocortisone 100 mg/2 mL SDV IVP (09:10)
[2022-05-16] MEDS: nystatin powder 15 gm Btl 1 APPLIC TOPICAL ×2 (09:13→18:03)
[2022-05-16] MEDS: chlorhexidine gluconate 4% Btl 118 mL 1 APPLIC TOPICAL (09:13)
--- NOTE | 2022-05-16 10:38 | PC.CHAP ---
Pastoral Care Encounter/Spiritual Assessment Type of Contact [] Declined street light cleaner visit [] Patient/Family/Request visit [] Outpatient visit [] Follow-up visit [] Physician referral [] Code/Alert [x] Routine visit [] Staff referral [] Actively dying [] Patient sleeping [] Family support [] [] Out of room [] Palliative care [] [x] Receiving care in room [] Pre-surgical visit [] Trauma [] Long length of stay [x] ICU visit [] Other: Relational/Emotional Strength [] Patient feels connected with others/family/visitors/staff [] Distress [] Loneliness/isolation [] Abandonment Spirituality of Patient [] Person of Livia [] Attends Jewish of their Livia [] Believes in Prayer [] Reads Bible or Evangelical materials [] There are Spiritual issues to be addressed Lamp Stack Developer Interventions [x] Prayer [] Active listening [] Non-anxious presence [] Spiritual/emotional support [] Crisis/trauma care [] Spiritual counseling [] Bereavement support [] Provided bereavement packet [] Provided Bible/devotional materials [] Provided toy/stuffed animal, coloring book to patient or family member [] Provided Communion [] Anointing/[place] [] Salvation [x] Completed spiritual assessment [] Other: Impact on Illness or Injury [] Angry [] Fearful [] Anxious [] Often cries [] Exhaustion [] Unable to work [] Unable to attend tenriism [] Unable to walk/stand [] Unable to read [] Unable to drive [] Unable to eat/drink [] Unable to sleep [] Unable to be with family [] Patient intubated [] Other: Summary Time spent with patient
[2022-05-16] MEDS: morphine 4 mg/mL SDV 1 mL IVP ×2 (11:15→20:13)
--- NOTE | 2022-05-16 11:30 | PC.NURSE ---
Dr Scott called for BP update. Also notified of patient stating ( while IV med and flush being admin through port) that it is weird it feels like my heart is fluttering when that (referring to port) is used. It was noted that her heart rate had no changed during dexamethasone and flush administration.
--- NOTE | 2022-05-16 11:33 | PC.NURSE ---
Betasept bath provided as ordered. Nystatin sprinkled on all reddened areas. Pt screamed while Coverderm/island dressings removed from under right arm. Decision was made not to use any dressing with adhesive again ABD pads folded and placed in right axillia and in raw groin areas. Pt tolerated that much better. Linen change provided. Dentures cleaned. Hair combed. Pt request pain medication. Morphine IVP admin.
--- NOTE | 2022-05-16 12:16 | PM.PN ---
Subjective Subjective: Levophed was turned off at 6 AM Most likely she has autonomic instability Methotrexate related pancytopenia stable Platelet 80,000 hemoglobin 8.7 Patient is endorsing pain all over her body Will monitor 1 more day in the ICU She is requiring midodrine Vitals/I&O/Wt Last Vital Signs Temp 97.6 F 05/16/22 08:00 Pulse 63 05/16/22 11:50 Resp 17 05/16/22 11:50 BP 93/53 05/16/22 11:50 Pulse Ox 95 05/16/22 11:50 O2 Del Method 05/16/22 11:50 O2 Flow Rate 15 05/15/22 20:00 05/15/22 05/16/22 05/16/22 22:59 06:59 14:59 Intake Total 1205 / 1615 226.424 / 1841.424 402.841 / 402.841 Output Total 450 / 975 850 / 1825 Balance 755 / 640 -623.576 / 16.424 402.841 / 402.841 Weight last 48 hrs Weight 115.212 kg Physical Exam Narrative: Awake and alert Nonfocal neuro exam Right chest Mediport When it was flushed ICU nurse noted bradycardia however on second time there was no such finding Distended abdomen intertrigo Dorsum of the venous is dermatitis with scaly lesions Rheumatoid arthritis joint deformity Awake and alert Nonfocal neuro exam Currently on room air Urinary Catheter Management: Kelly: Cath Placed During This Visit: yes Reason for Continuing Indwelling Catheter: Accurate Measurement of Urinary Output in Critically Ill Patients Urinary Catheter Date of Insertion: 05/13/22 Urinary Catheter Time of Insertion: 23:17 Data : 05/16/22 03:04 05/16/22 03:04 Micro: Microbiology 05/13/22 23:14 Urine Culture - Preliminary Urine,Clean Catch Gram Negative Rods Gram Negative Rods#2 A&P Assessment and plan (1) Pancytopenia: (2) Steroid dependent: (3) UTI (urinary tract infection): (4) Acute kidney injury superimposed on CKD: (5) Generalized weakness: (6) Yeast dermatitis: (7) Poor intravenous access: (8) Physical debility: (9) Chronic pain: Qualifiers: Chronic pain type: chronic pain syndrome Qualified Code(s): G89.4 - Chronic pain syndrome (10) Rheumatoid arthritis in remission: (11) Depression: Plan Pancytopenia most likely is methotrexate related Hemoglobin and platelets stable today She received 1 unit PRBC and 1 bag of platelets Bleeding has stopped Steroid-dependent Currently on stress dose steroids will decrease dose today continue midodrine Vasopressor stopped at 6 AM She received 100 mg of hydrocortisone, will give her second dose tomorrow UTI: Continue ceftriaxone gram-negative vanessa on urine culture no bacteremia, afebrile History of MRSA skin infection continue doxycycline Full code Patient is bedbound, uses wheelchair intermittently at the intermediate Plan to discharge her tomorrow De-escalate the dose of steroids Currently on regular diet Subcutaneous bleeding has stopped Not a candidate DVT prophylaxis because of thrombocytopenia Attestations Medical Necessity Statement*: Continue ICU management, if remains off Levophed can be transferred upstairs Time Spent in Patient Care: 40 Coding Level of Care Code Acute Assistant Professor Of Chemistry for g Fwd Diagnoses Pancytopenia D61.818 Steroid dependent F19.20 UTI (urinary tract infection) N39.0 Acute kidney injury superimposed on CKD N17.9; N18.9 Generalized weakness R53.1 Yeast dermatitis B37.2 Poor intravenous access Z78.9 Physical debility R53.81 Chronic pain G89.4 Chronic pain type: chronic pain syndrome Rheumatoid arthritis in remission M06.9 Depression F32.9
[2022-05-16 13:00] LABS: Thyroid Stimulating Hormone 0.07 uIU/mL (0.27-4.20)
[2022-05-16 13:30] LABS: Cortisol Random 42.27 ug/dL (2.47-19.5)
--- NOTE | 2022-05-16 18:35 | PC.NURSE ---
Shift Note: Pt rested in bed throughout shift. NO complaints except for during dressing change and the adhesive on the dressing pulled her skin. Other than that she tolerated the wound care well. Morphine admin for the pain. Betasept bath provided as ordered. Urine output of 575ml clear and yellow. Levophed discontinued at 0730, no BP issues throughout this shift. Pt averaged 25% of her meals. Tray set up is required for her to be able to feed herself. Frequent safety and comfort rounds continue. Orders and/or nursing care completed as indicated. Patient monitored for response to intervention and treatment(s). Education provided includes Midodrine, Betasept, progress and plan of care. Patient verbalized understanding of plan of care, progress and medications. Will continue to monitor.
--- NOTE | 2022-05-16 19:22 | PC.NURSE ---
Bedside report completed with LORI Hickey and LORI Lindquist.
[2022-05-16] MEDS: efferdent effervescent 1 EACH DENTAL (20:23)
[2022-05-16] MEDS: cefTRIAXone 1,000 MG in sodium chloride 0.9% (plus) 50 ML 100 MG IV (23:27)
[2022-05-17] VITALS (13 sets, daily range): BP systolic 114–133; BP diastolic 59–86; PULSE 54–78; RESP 16–24; TEMP 36.3–36.7; O2SAT 92–98
--- NOTE | 2022-05-17 02:01 | PC.NURSE ---
@0146 transported pt to medr floor. Belongings at bedside.
[2022-05-17 05:31] LABS: Hematocrit 25.2 % (37.0-47.0); Lymphocytes # 0.1 10^3/uL (0.8-4.8); Lymphocytes % 11.7 %; Mean Corpuscular HGB Conc 31.7 g/dL (30.0-36.0); Mean Corpuscular Hemoglobin 28.7 pg (28.0-34.0); Mean Corpuscular Volume 90.3 fl (81-99); Mean Platelet Volume 12.2 fL (7.4-10.4); Neutrophils % 82.4 %; Nucleated Red Blood Cells % 0 %; Platelet Count 91 10^3/cmm (130-400); Positive M 1; Red Blood Count 2.79 10^6/uL (4.1-5.3); Red Cell Distribution Width 18.6 % (12.1-15.1)
[2022-05-17 05:43] LABS: Neutrophils # 0.85 10^3/uL (1.8-7.7); Slide Review Slide Review Perform
[2022-05-17] MEDS: pantoprazole DR 40 mg Tablet PO (05:53)
--- NOTE | 2022-05-17 08:22 | PC.PHAR ---
CALLED DR CARRASCO REGARDING GROWTH FACTOR ORDER. WANTS FILGRASTIM NOT PEGFILGRASTIM. ENTERED VERBAL ORDER X 1
[2022-05-17] MEDS: ipratropium-albuterol 3 mL Neb INHALATION (08:41)
[2022-05-17] MEDS: folic acid 1 mg Tablet PO (08:48)
[2022-05-17] MEDS: fluconazole 100 mg Tablet 200 MG PO (08:48)
[2022-05-17] MEDS: midodrine 5 mg TABLET 10 MG PO ×2 (08:49→16:56)
[2022-05-17] MEDS: meropenem 1,000 MG in sodium chloride 0.9% (plus) 50 ML 100 MG IV ×2 (08:50→13:30)
[2022-05-17] MEDS: chlorhexidine gluconate 4% Btl 118 mL 1 APPLIC TOPICAL (08:55)
[2022-05-17] MEDS: nystatin powder 15 gm Btl 1 APPLIC TOPICAL ×2 (08:55→17:03)
--- NOTE | 2022-05-17 09:52 | P.DS_ITS ---
Discharge Providers Date of Admission: 05/13/22 23:43 Date of Discharge: May 17, 2022 Attending Provider at Admission: Joshua Sharma MD Attending Provider at Discharge: Tania Scott MD Primary Care Provider: Willie Louis MD Diagnoses at Discharge Discharge Diagnosis (1) Pancytopenia: Status: Acute (2) Steroid dependent: Status: Acute (3) UTI (urinary tract infection): Status: Acute (4) Acute kidney injury superimposed on CKD: Status: Acute (5) Generalized weakness: Status: Acute (6) Yeast dermatitis: Status: Acute (7) Poor intravenous access: Status: Resolved Permanent problem details: Port-A-Cath in place right upper chest (8) Physical debility: Status: Acute (9) Chronic pain: Status: Acute Qualifiers: Chronic pain type: chronic pain syndrome Qualified Code(s): G89.4 - Chronic pain syndrome (10) Rheumatoid arthritis in remission: Status: Acute (11) Depression: Status: Acute Reason for Visit Reason for Visit: CONFUSION Hospital Course Hospital Course 52-year female who is a bedbound patient has history of rheumatoid arthritis on methotrexate sees Dr. Butterfield outpatient presented with metabolic encephalopathy related to UTI, urine culture showed ESBL UTI she does have a Mediport, at the time of discharge she will get meropenem 1 g every 8 hours for 10 days. She never spiked any fever no worsening of creatinine. She is suffering from pancytopenia likely related to methotrexate toxicity bone marrow suppression. She received 1 unit of platelets, 1 unit of PRBC and 1 dose of Neupogen on 05/17. She also required vasopressors in the ICU because of adrenal insufficiency because she takes 10 mg of prednisone at the snf, I will give her a tapering dose of prednisone at the time of discharge. She has been off Levophed for last 24 hours, she did well out of ICU, she is awake and alert, nonfocal neuro exam Her skin is extremely thin it sloughs off very easily and bleeds. Most likely is related to chronic steroid use. She has history of MRSA skin infection. Initially she was kept on doxycycline and ceftriaxone however antibiotics were switched after urine culture showed ESBL UTI Physical Exam Narrative: Awake and alert Nonfocal neuro exam Right chest Mediport Distended abdomen intertrigo Lower extremity venous stasis dermatitis with scaly lesions Rheumatoid arthritis joint deformity Awake and alert Nonfocal neuro exam Currently on room air Urinary Catheter Management: Kelly: Cath Placed During This Visit: yes Reason for Continuing Indwelling Catheter: Accurate Measurement of Urinary Output in Critically Ill Patients Urinary Catheter Date of Insertion: 05/13/22 Urinary Catheter Time of Insertion: 23:17 Discharge Data Studies Completed and Pending Completed Studies During Hospitalization Category Date Time Status XR chest 1V portable [id number] Stat Exams 05/13/22 18:28 Completed MR cervical spin wo con* [id number] Stat MRI 05/13/22 20:37 Completed MR lumbar spine wo con* [id number] Stat MRI 05/13/22 20:37 Completed MR thoracic spin wo con* [id number] Stat MRI 05/13/22 20:37 Completed Pending at discharge Category Date Time Status Blood Culture Routine Lab 05/13/22 05:37 Results COVID [SARS Covid-2 Antigen] Routine Lab 05/17/22 09:17 Uncollected Heparin Induced Thrombocytopen Routine Lab 05/14/22 11:15 Received Radiology Impressions Chest X-Ray 05/13/22 18:28 IMPRESSION: No acute findings. Cervical Spine MRI 05/13/22 20:37 IMPRESSION: 1. Motion limited exam. No acute findings. 2. Moderate multilevel degenerative changes/degenerative disc disease centered within the mid and lower cervical spine with moderate central canal stenosis at C5-C6. Lumbar Spine MRI 05/13/22 20:37 IMPRESSION: No acute findings. Thoracic Spine MRI 05/13/22 20:37 IMPRESSION: No acute findings. Laboratory Results WBC 1.0 10^3/uL (4.0-10.0) L 05/17/22 04:24 Corrected WBC Cancelled 05/15/22 04:45 RBC 2.79 10^6/uL (4.1-5.3) L 05/17/22 04:24 Hgb 8.0 g/dL (11.5-15.3) L 05/17/22 04:24 Hct 25.2 % (37.0-47.0) L 05/17/22 04:24 MCV 90.3 fl (81-99) 05/17/22 04:24 MCH 28.7 pg (28.0-34.0) 05/17/22 04:24 MCHC 31.7 g/dL (30.0-36.0) 05/17/22 04:24 RDW 18.6 % (12.1-15.1) H 05/17/22 04:24 Plt Count 91 10^3/cmm (130-400) L 05/17/22 04:24 MPV 12.2 fL (7.4-10.4) H 05/17/22 04:24 Gran % Cancelled 05/15/22 04:45 Neut % (Auto) 82.4 % 05/17/22 04:24 Lymph % (Auto) 11.7 % 05/17/22 04:24 [place] % (Auto) 1.0 % 05/17/22 04:24 Eos % (Auto) 0.0 % 05/17/22 04:24 Baso % (Auto) 0.0 % 05/17/22 04:24 Neut # (Auto) 0.85 10^3/uL (1.8-7.7) L* 05/17/22 04:24 Lymph # (Auto) 0.1 10^3/uL (0.8-4.8) L 05/17/22 04:24 [place] # (Auto) 0.0 10^3/uL (0.2-0.9) L 05/17/22 04:24 Eos # (Auto) 0.0 10^3/uL (0.0-0.8) 05/17/22 04:24 Baso # (Auto) 0.0 10^3/uL (0.0-0.1) 05/17/22 04:24 Absolute Gran (auto) Cancelled 05/15/22 04:45 Nucleated RBC % (auto) 0 % 05/17/22 04:24 Nucleated RBCs # 0.0 /100WBC 05/17/22 04:24 Sodium 141 mmol/L (136-145) 05/16/22 03:04 Potassium 3.3 mmol/L (3.5-5.1) L 05/16/22 03:04 Chloride 106 mmol/L (98-107) 05/16/22 03:04 Carbon Dioxide 22 mmol/L (22-29) 05/16/22 03:04 Anion Gap 16.3 (5-19) 05/16/22 03:04 BUN 20 mg/dL (6-20) 05/16/22 03:04 Creatinine 0.8 mg/dL (0.5-0.9) 05/16/22 03:04 GFR Calculation 74.7 mL/min (90-130) L 05/16/22 03:04 Glucose 214 mg/dL (65-115) H 05/16/22 03:04 Calculated Osmolality 301 mOsm/kg (285-295) H 05/16/22 03:04 Lactic Acid 2.0 mmol/L (0.5-2.2) 05/14/22 03:30 Calcium 8.5 mg/dL (8.5-10.5) 05/16/22 03:04 Magnesium 1.7 mg/dL (1.7-2.3) 05/14/22 03:30 Total Bilirubin 0.5 mg/dL (0.15-1.2) 05/14/22 03:30 AST 38 U/L (0-32) H 05/14/22 03:30 ALT 28 U/L (0-33) 05/14/22 03:30 Alkaline Phosphatase 82 U/L (35-105) 05/14/22 03:30 Troponin T Baseline 38 ng/L (0-10) H 05/13/22 19:33 Troponin T 120 Minute 37.65 ng/L (0-10) H 05/13/22 21:15 Delta Troponin T -0.35 ABS# (0-10) L 05/13/22 21:15 Troponin T Hi Sens 6Hr 25.16 ng/L (0-10) H 05/14/22 03:30 Troponin T Hi Sens 6Hr Delta -12.84 ng/L (0-12) L 05/14/22 03:30 NT-Pro-B Natriuret Pep 2956 pg/mL (0-125) H 05/13/22 19:33 Total Protein 5.9 g/dL (6.6-8.7) L 05/14/22 03:30 Albumin 2.4 g/dL (3.5-5.2) L 05/14/22 03:30 Globulin 3.5 g/dL (1.3-4.6) 05/14/22 03:30 Lipase 17 U/L (13-60) 05/13/22 19:33 Procalcitonin 34.88 ng/mL (0-0.5) H 05/14/22 03:30 TSH 0.07 uIU/mL (0.27-4.20) L 05/16/22 03:04 Random Cortisol 42.27 ug/dL (2.47-19.5) H 05/16/22 03:04 Urine Color Dark yellow (Yellow) 05/13/22 23:14 Urine Appearance Cloudy (CLEAR) 05/13/22 23:14 Urine pH 6.5 (5-7) 05/13/22 23:14 Ur Specific [place] 1.020 (1.005-1.030) 05/13/22 23:14 Urine Protein 1+ (Negative) A 05/13/22 23:14 Urine Glucose (UA) Negative (Normal) 05/13/22 23:14 Urine Ketones 1+ (Negative) A 05/13/22 23:14 Urine Blood Negative (Negative) 05/13/22 23:14 Urine Nitrate Negative 05/13/22 23:14 Urine Bilirubin Small (Negative) 05/13/22 23:14 Urine Urobilinogen 1.0 mg/dL (Negative) 05/13/22 23:14 Ur Leukocyte Esterase 1+ (Negative) A 05/13/22 23:14 Urine RBC 0-4 /hpf (0-2) H 05/13/22 23:14 Urine WBC 15-25 /hpf (0-5) H 05/13/22 23:14 Ur Squamous Epith Cells 0-4 /hpf (0-5) H 05/13/22 23:14 Amorphous Sediment Not Reportable 05/13/22 23:14 Urine Bacteria 4+ /hpf (NONE) H 05/13/22 23:14 U Random Total Protein 47 mg/dL 05/13/22 23:14 Ur Random Sodium 18 mmol/L 05/13/22 23:14 Urine Creatinine 205 mg/dL (28-217) 05/13/22 23:14 Nasal Influ A H1 2008 PCR Not detected (NOT DETECT) 05/13/22 19:33 Salicylates < 0.3 mg/dL (3-10) L 05/13/22 19:33 Acetaminophen < 5.0 ug/mL (10-30) L 05/13/22 19:33 Coronavirus 229E (PCR) Not detected (NOT DETECT) 05/13/22 19:33 Influenza A (H1) PCR Not detected (NOT DETECT) 05/13/22 19:33 Influenza A (H3) PCR Not detected (NOT DETECT) 05/13/22 19:33 Influenza Type A (PCR) Not detected (NOT DETECT) 05/13/22 19:33 Influenza Type B (PCR) Not detected (NOT DETECT) 05/13/22 19:33 SARS-CoV-2 (PCR) Not detected (NOT DETECT) 05/13/22 19:33 Blood Type A Positive 05/15/22 08:35 Rho(D) Type Positive 05/15/22 08:35 Antibody Screen Negative 05/15/22 08:35 Crossmatch See Detail 05/15/22 08:35 Vitals Last Vital Signs Temp 97.3 F L 05/17/22 06:00 Pulse 69 05/17/22 08:44 Resp 18 05/17/22 08:44 BP 132/72 05/17/22 06:00 Pulse Ox 97 05/17/22 08:44 O2 Del Method 05/17/22 08:44 O2 Flow Rate 15 05/15/22 20:00 Discharge Plan Discharge Patient Disposition: Home Condition: Stable Prescriptions: New midodrine 5 mg Tablet 10 mg PO TID Qty: 9 0RF prednisone 10 mg tablet 10 mg PO DAILY Qty: 30 0RF Rx Instructions: 40 mg for 3 days, 30 mg for 3 days, 20 mg for 3 days and then continue 10 mg daily Continued Symbicort 160-4.5 mcg/actuation HFA aerosol inhaler 2 puff INHALATION BID@0800,1999 gabapentin 300 mg capsule 300 mg PO TID@08,14,20 docusate sodium [Colace] 100 mg capsule 200 mg PO DAILY@1999 Prolia 60 mg/mL syringe 60 mg SUBCUT Q180M fluticasone propionate [Flonase Allergy Relief] 50 mcg/actuation spray,suspension 2 spray INTRANASAL DAILY@0800 senna 8.6 mg capsule 17.2 mg PO DAILY PRN (Reason: Constipation) pantoprazole [Protonix] 40 mg tablet,delayed release (DR/EC) 40 mg PO DAILY@0600 Qty: 30 3RF duloxetine [Cymbalta] 60 mg capsule,delayed release(DR/EC) 60 mg PO DAILY@0800 Qty: 30 3RF (DME) insulin syringes (disposable) 1 mL syringe See Rx Instructions .Route Qty: 50 0RF Rx Instructions: As directed folic acid 1 mg tablet 1 mg PO DAILY Qty: 90 3RF prednisone 10 mg tablet 10 mg PO DAILY Qty: 90 1RF oxycodone-acetaminophen 5-325 mg tablet 1 tab PO Q6H PRN (Reason: Pain) 30 Days Qty: 120 0RF acetaminophen [Tylenol] 325 mg Tablet 650 mg PO Q6H PRN (Reason: Pain) tizanidine 2 mg Tablet 2 mg PO Q8H PRN (Reason: Muscle Spasm) Narcan 0.4 mg/mL Solution 0.4 mg SUBCUT Q2M PRN (Reason: overdose) fluconazole 200 mg Tablet 200 mg PO DAILY Rx Instructions: x 7 days Zofran 4 mg Tablet 4 mg PO BID PRN (Reason: Nausea) Milk of Magnesia 400 mg/5 mL Suspension 30 ml PO DAILY PRN (Reason: Constipation) albuterol sulfate 90 mcg/actuation Hfa Aerosol Inhaler 2 puff INHALATION Q4H PRN (Reason: Shortness Of Breath) trazodone 50 mg tablet 25 mg PO EVERY OTHER DAY Humira Pen 40 mg/0.8 mL pen injector kit 40 mg SUBCUT Q7D Changed furosemide [Lasix] 40 mg tablet 40 mg PO EVERY OTHER DAY Qty: 20 0RF Held Eliquis 5 mg tablet 5 mg PO BID@0800,2000 Hold Instructions: Resume on 01/24/20. Discontinued metoprolol tartrate 25 mg tablet 25 mg PO BID@0800,2000 topiramate [Topamax] 50 mg tablet 50 mg PO BID@0800,1700 Qty: 60 3RF methotrexate sodium 25 mg/mL solution 25 mg SUBCUT Q7D Discharge Orders: Discharge Order (Routine); Ordered 05/17/22 Ordered By: Tania Scott Other Ambulatory Orders: Complete Blood Count w/Auto (Routine) Timeframe: 1 Week Location: Determined by Patient Ordered By: Tania Scott Referrals: Willie Louis MD [Primary Care Provider] - 05/24/22 2:15 pm Parag Butterfield MD [Physician] - 2 weeks Discharge Diet: Regular Patient Instructions: Opioid Safety Discharge Attestations Time Spent in Discharge Care*: less than 30 min Quality Metrics Clinical Quality Measures [ No reported AMI, CVA or VTE this stay] Coding Level of Care Code Acute Chg FW DC note Diagnoses Pancytopenia D61.818 Steroid dependent F19.20 UTI (urinary tract infection) N39.0 Acute kidney injury superimposed on CKD N17.9; N18.9 Generalized weakness R53.1 Yeast dermatitis B37.2 Poor intravenous access Z78.9 Physical debility R53.81 Chronic pain G89.4 Chronic pain type: chronic pain syndrome Rheumatoid arthritis in remission M06.9 Depression F32.9
[2022-05-17] MEDS: morphine 4 mg/mL SDV 1 mL IVP (10:07)
[2022-05-17 10:44] LABS: Reticulocyte % 1.2 % (0.5-2.0)
[2022-05-17 10:55] LABS: Iron 143 ug/dL (37-145)
[2022-05-17 10:59] LABS: Basophils % 0.4 %; Hematocrit 27.4 % (37.0-47.0); Lymphocytes # 0.1 10^3/uL (0.8-4.8); Lymphocytes % 4.8 %; Mean Corpuscular HGB Conc 31.8 g/dL (30.0-36.0); Mean Corpuscular Volume 90.1 fl (81-99); Mean Platelet Volume 12.6 fL (7.4-10.4); Neutrophils # 2.52 10^3/uL (1.8-7.7); Neutrophils % 93.4 %; Platelet Count 75 10^3/cmm (130-400); Red Cell Distribution Width 18.2 % (12.1-15.1); White Blood Count 2.7 10^3/uL (4.0-10.0)
[2022-05-17 11:22] LABS: Ferritin 1704 ng/mL (15-150)
[2022-05-17 11:26] LABS: Unsaturated Iron Binding < 17 ug/dL (112-347)
[2022-05-17 12:19] LABS: SARS Covid-2 Antigen Negative (Negative)
--- NOTE | 2022-05-17 13:30 | PC.NURSE ---
Dr. Scott verbally ordered this medication to be given at 1:00 pm so patient could return home and have proper meds given today. Meropenem
--- NOTE | 2022-05-17 18:58 | PC.NURSE ---
Called report to Jack Osuna LPN at [facility] early this afternoon
--- NOTE | 2022-05-17 20:06 | PC.NURSE ---
Transport here for patient, back to [facility].
[2022-05-20 05:14] LABS: Heparin Induced Platelet AB NEGATIVE (NEGATIVE); Patient O.D 0.215
[2022-05-25 21:24] LABS: UFH High Dose, 100 IU/ML 11 % release; UFH Low Dose, 0.1 IU/ML 8 % release; UFH Low Dose, 0.5 IU/ML 13 % release; UFH SRA Result NEGATIVE (NEGATIVE)
== END 2022-05-17 20:00 | disposition skilled nursing facility (03) | DRG 689 ==
LOC: ER 22:39 → ICU 05-14 06:46 → MEDSURG 05-14 06:46 → ICU 05-14 14:42 → MEDSURG 05-17 01:55
PROVIDERS: Admitting Provider Internal Medicine; Emergency Provider Emergency Medicine; PCP Internal Medicine; Visit Provider Internal Medicine
DX: N39.0 Urinary tract infection, site not specified (principal); G93.41 Metabolic encephalopathy; Z68.41 Body mass index [BMI] 40.0-44.9, adult; E27.40 Unspecified adrenocortical insufficiency; D61.818 Other pancytopenia; N17.9 Acute kidney failure, unspecified; B96.20 Unspecified Escherichia coli [E. coli] as the cause of diseases classified elsewhere; M50.322 Other cervical disc degeneration at C5-C6 level; I12.9 Hypertensive chronic kidney disease with stage 1 through stage 4 chronic kidney disease, or unspecified chronic kidney disease; N18.9 Chronic kidney disease, unspecified; M05.9 Rheumatoid arthritis with rheumatoid factor, unspecified; E66.01 Morbid (severe) obesity due to excess calories; Z86.718 Personal history of other venous thrombosis and embolism; Z86.711 Personal history of pulmonary embolism; Z74.01 Bed confinement status; Z86.14 Personal history of Methicillin resistant Staphylococcus aureus infection; D63.1 Anemia in chronic kidney disease; F32.A Depression, unspecified; K21.9 Gastro-esophageal reflux disease without esophagitis; E78.5 Hyperlipidemia, unspecified; Z79.891 Long term (current) use of opiate analgesic; Z79.4 Long term (current) use of insulin; L30.9 Dermatitis, unspecified; Z79.52 Long term (current) use of systemic steroids; I95.9 Hypotension, unspecified; D69.6 Thrombocytopenia, unspecified; G89.4 Chronic pain syndrome
CPT/HCPCS: 36415; 36430; 36591; 51702; 71045; 72141; 72146; 72148; 80048; 80053; 80307; 80503; 81001; 82533; 82575; 82728; 83540; 83550; 83605; 83690; 83735; 83880; 84145; 84156; 84300; 84443; 84484; 85025; 85045; 86850; 86900; 86920; 87040; 87077; 87086; 87186; 87426; 87631; 87635; 93005; 94640; 96372; 99285; J0696; J1442; J1644; J1720; J2185; J2270; J2405; J7030; J7040; J8540; P9016; P9035

== ENCOUNTER → 2022-10-13 14:10 | Outpatient (BNVA) | payer MEDICAID, SELFPAY | PROVIDERS: PCP Internal Medicine; Visit Provider Internal Medicine Rheumatology | DX: M05.79 Rheumatoid arthritis with rheumatoid factor of multiple sites without organ or systems involvement (principal); Z79.899 Other long term (current) drug therapy; Z71.89 Other specified counseling; Z96.659 Presence of unspecified artificial knee joint | CPT/HCPCS: 99214 ==

== ENCOUNTER → 2023-02-08 14:37 | Outpatient (BNVA) | payer MEDICAID, SELFPAY | PROVIDERS: PCP Internal Medicine; Visit Provider Internal Medicine Rheumatology | DX: M05.79 Rheumatoid arthritis with rheumatoid factor of multiple sites without organ or systems involvement (principal); Z71.89 Other specified counseling; Z96.659 Presence of unspecified artificial knee joint; Z79.899 Other long term (current) drug therapy | CPT/HCPCS: 99214 ==

== ENCOUNTER 2023-03-22 18:05 | Emergency (ER) | payer MEDICAID, SELFPAY ==
[2023-03-22 18:07] VITALS: BP 109/62; PULSE 98; RESP 16; TEMP 36.9; O2SAT 93; BMI 40.3
--- NOTE | 2023-03-22 18:40 | USR_ITS ---
PROCEDURE INFORMATION: Exam: US Duplex Left Lower Extremity Veins, Limited Exam date and time: 03/22/2023 7:31 PM Age: 52 years old Clinical indication: Swelling (edema) of limb; Lower extremity, left; Prior surgery; Surgery date: 6+ months; Surgery type: History of bilateral leg fractures, patient cannot recall year, states she fell out of bed. Patient is unable to bend either knee, states there is a vanessa in her knees. ; Additional info: Red swollen painful, HX of dvt, R/O dvt vs cellulitis TECHNIQUE: Imaging protocol: Real-time duplex ultrasound of the left extremity with 2-D cordova scale, color Doppler flow and spectral waveform analysis including responses to compression and other maneuvers (when performed) with image documentation. Limited exam focused on the left lower extremity veins. COMPARISON: US soft tissue/extremity [id number] 06/06/2017 5:37 AM FINDINGS: Left deep veins: Unremarkable. The common femoral, femoral, proximal profunda femoral and popliteal veins are patent without thrombus. Normal Doppler waveforms. Normal compressibility and/or augmentation response. Superficial veins: Unremarkable. Saphenofemoral junction is patent without thrombus. Soft tissues: Unremarkable. US/[place] [id number] IMPRESSION: No evidence of deep vein thrombosis.
[2023-03-22 18:58] VITALS: RESP 18; O2SAT 99
[2023-03-22] MEDS: morphine 4 mg/mL SDV 1 mL IVP (18:58)
--- NOTE | 2023-03-22 18:58 | ED_ITS ---
HPI - Extremity Problem General: Chief complaint: Extremity Injury, Lower Stated complaint: redness to rt calf Time Seen by Provider: 03/22/23 18:09 History of Present Illness: Patient presents from [facility]. Patient says her left leg has been swollen for a long time and has been getting wraps for a long time. Patient states approximately a week ago her leg started swelling worse than normal and getting red and painful. Since then his it has become more swollen and more painful. Patient does have a history of DVT, patient is on Eliquis currently patient already has an ultrasound appointment for tomorrow but she was sent here for further evaluation and treatment tonight. Patient was given 100 mcg of fentanyl and 4 mg Zofran on route. Patient has no other complaints at this time. Review of Systems General: Reports: 10 or more systems reviewed and unremarkable except in HPI and below PFSH ED PFSH: Medical History Acute kidney injury superimposed on CKD Acute renal failure Anemia Atypical chest pain Chronic pain Constipation Depression Edema Fatigue Fever Generalized weakness GERD (gastroesophageal reflux disease) High risk medication use History of MRSA infection Hyperlipidemia Hypertension Immunization counseling Light headedness Numbness and tingling in left arm Numbness of face Pancytopenia Physical debility Poor intravenous access Port-A-Cath in place right upper chest Rheumatoid arthritis in remission Seropositive rheumatoid arthritis of multiple sites Steroid dependent Thrombocytopenia UTI (urinary tract infection) Yeast dermatitis Surgical History History of total knee arthroplasty Family History Denies family history of Anesthesia complication Bleeding disorder Social History Smoking and tobacco status: never smoked Second hand smoke exposure: No Alcohol intake: never Substance/Drug Use: never Adopted: No Caregiver/support person: No Lives independently: Yes Household members: none Housing: Care Home Marital status: Single Physical Exam Const: COMMON NORMALS: no acute distress, average body habitus, patient oriented x3, no limitations, alert and well nourished HENMT: COMMON NORMALS: normocephalic, atraumatic, hearing grossly normal bilaterally, external ears normal, Normal external nose present and moist oral mucous membranes HEAD & SCALP: normocephalic and atraumatic NOSE: Normal external nose present EXTERNAL EAR: Yes external ears normal Neck/C-Spine: COMMON NORMALS: full ROM, no lymphadenopathy, supple, no meningeal signs, no JVD and Thyroid normal THYROID: Thyroid normal Chest: COMMONS NORMALS: normal inspection of the chest and normal palpation of entire chest wall Resp: COMMON NORMALS: normal respiratory effort, No retractions, No use of accessory muscles and clear to auscultation bilaterally AUSCULTATION: clear to auscultation bilaterally Cardio: COMMON NORMALS: no JVD, regular rate, regular rhythm, S1 normal heart sound present, S2 normal heart sound present, No gallops present (Cardio), No clicks present (Cardio) and No murmurs present (Cardio) RATE: regular rate RHYTHM: regular rhythm HEART SOUNDS: S1 normal heart sound present and S2 normal heart sound present GI: COMMON NORMALS: Normal to inspection, nondistended, normoactive bowel sounds present, Soft to palpation, non-tender, No hepatosplenomegaly present and no masses PALPATION: Yes Soft to palpation and Yes No hepatosplenomegaly present Extremity: NARRATIVE EXTREMITY EXAM: Lateral lower extremity edema left worse than right. Left is red erythematous and cellulitic in nature. Patient's left leg is tender to touch anywhere. Redness goes up to least than lower portion of the knee Area. Leg has multiple abrasion type wounds that are scabbed over. Neuro: COMMON NORMALS: patient oriented x3 SENSORIUM/ORIENTATION: Yes alert MENINGEAL SIGNS: Yes no meningeal signs Course Vital Signs: Vital signs: Vital Signs Temperature 98.4 F 03/22/23 18:07 Pulse Rate 98 03/22/23 20:00 Respiratory Rate 16 03/22/23 20:00 Blood Pressure 109/62 03/22/23 18:07 Pulse Oximetry 98 03/22/23 20:00 Oxygen Delivery Me thod Room Air 03/22/23 19:00 MDM - Extremity (Nontraumatic) Medical Decision Making Presented to the ER with complaints of left lower leg swelling and redness is getting worse over the last week. Patient does have dressings in place and says that they swell all the time but is getting more painful and swelling worse. Patient is on apixaban currently. An ultrasound was obtained which showed no evidence of DVT lab work was obtained which revealed a normal white count of 7.7 slightly elevated liver enzymes with an AST of 109 and a total bilirubin of 1.5, patient will be given 4.5 g of Zosyn IV here discharge back to assisted and put on Bactrim DS patient should follow-up with her PCP or assisted doctor within the next 7 days for further evaluation and treatment. Differential Diagnosis Likely cellulitis, lower extremity edema and deep vein thrombosis of lower extremity; Unlikely herpes zoster, gout, superficial thrombophlebitis or deep venous thrombosis of upper extremity Medical Records I reviewed the patient's medical records. Lab Data I reviewed the patient's lab results. 03/22/23 18:19 03/22/23 18:19 Radiology Impressions Venous Duplex 03/22/23 18:40 IMPRESSION: No evidence of deep vein thrombosis. Laboratory Results WBC 7.7 10^3/uL (4.0-10.0) 03/22/23 18:19 RBC 3.90 10^6/uL (4.1-5.3) L 03/22/23 18:19 Hgb 12.5 g/dL (11.5-15.3) 03/22/23 18:19 Hct 39.9 % (37.0-47.0) 03/22/23 18:19 MCV 102.3 fl (81-99) H 03/22/23 18:19 MCH 32.1 pg (28.0-34.0) 03/22/23 18:19 MCHC 31.3 g/dL (30.0-36.0) 03/22/23 18:19 RDW 17.2 % (12.1-15.1) H 03/22/23 18:19 Plt Count 179 10^3/cmm (130-400) 03/22/23 18:19 MPV 9.9 fL (7.4-10.4) 03/22/23 18:19 Neut % (Auto) 73.3 % 03/22/23 18:19 Lymph % (Auto) 15.3 % 03/22/23 18:19 Centre % (Auto) 6.6 % 03/22/23 18:19 Eos % (Auto) 3.6 % 03/22/23 18:19 Baso % (Auto) 0.8 % 03/22/23 18:19 Neut # (Auto) 5.65 10^3/uL (1.8-7.7) 03/22/23 18:19 Lymph # (Auto) 1.2 10^3/uL (0.8-4.8) 03/22/23 18:19 Centre # (Auto) 0.5 10^3/uL (0.2-0.9) 03/22/23 18:19 Eos # (Auto) 0.3 10^3/uL (0.0-0.8) 03/22/23 18:19 Baso # (Auto) 0.1 10^3/uL (0.0-0.1) 03/22/23 18:19 Nucleated RBC % (auto) 0 % 03/22/23 18:19 Nucleated RBCs # 0.0 /100WBC 03/22/23 18:19 PT 16.70 SECONDS (12.1-14.9) H 03/22/23 18:19 INR 1.31 (0.8-1.2) H 03/22/23 18:19 Sodium 134 mmol/L (136-145) L 03/22/23 18:19 Potassium 3.9 mmol/L (3.5-5.1) 03/22/23 18:19 Chloride 95 mmol/L (98-107) L 03/22/23 18:19 Carbon Dioxide 23 mmol/L (22-29) 03/22/23 18:19 Anion Gap 19.9 (5-19) H 03/22/23 18:19 BUN 4 mg/dL (6-20) L 03/22/23 18:19 Creatinine 0.7 mg/dL (0.5-0.9) 03/22/23 18:19 GFR Calculation 87.2 mL/min (90-130) L 03/22/23 18:19 Glucose 99 mg/dL (65-115) 03/22/23 18:19 Calculated Osmolality 275 mOsm/kg (285-295) L 03/22/23 18:19 Lactic Acid 1.6 mmol/L (0.5-2.2) 03/22/23 19:12 Calcium 9.1 mg/dL (8.5-10.5) 03/22/23 18:19 Total Bilirubin 1.5 mg/dL (0.15-1.2) H 03/22/23 18:19 AST 109 U/L (0-32) H 03/22/23 18:19 ALT 25 U/L (0-33) 03/22/23 18:19 Alkaline Phosphatase 218 U/L (35-105) H 03/22/23 18:19 Total Protein 6.9 g/dL (6.6-8.7) 03/22/23 18:19 Albumin 3.0 g/dL (3.5-5.2) L 03/22/23 18:19 Globulin 3.9 g/dL (1.3-4.6) 03/22/23 18:19 Procalcitonin 1.48 ng/mL (0-0.5) H 03/22/23 18:19 Discharge Plan Discharge Patient Disposition: Home Clinical Impression: Cellulitis of left leg Condition: Stable Prescriptions: New Bactrim DS 800-160 mg tablet 1 tab PO BID 10 Days Qty: 20 0RF No Action Eliquis 5 mg tablet 5 mg PO BID@0800,1999 Hold Instructions: Resume on 06/07/22. Symbicort 160-4.5 mcg/actuation HFA aerosol inhaler 2 puff INHALATION BID@0800,1999 gabapentin 300 mg capsule 300 mg PO TID@, docusate sodium [Colace] 100 mg capsule 200 mg PO DAILY@2000 Prolia 60 mg/mL syringe 60 mg SUBCUT Q180M fluticasone propionate [Flonase Allergy Relief] 50 mcg/actuation spray,suspension 2 spray INTRANASAL DAILY@0800 senna 8.6 mg capsule 17.2 mg PO DAILY PRN (Reason: Constipation) pantoprazole [Protonix] 40 mg tablet,delayed release (DR/EC) 40 mg PO DAILY@0600 Qty: 30 3RF (DME) insulin syringes (disposable) 1 mL syringe See Rx Instructions .Route Qty: 50 0RF Rx Instructions: As directed prednisone 10 mg tablet 10 mg PO DAILY Qty: 90 2RF Rx Instructions: 40mg x5 days then 30mg x5days then 20mg x5days then stay on 10mg daily lidocaine HCl [Lidocaine Viscous] 2 % solution 1 applic topical ONCE Qty: 1 0RF Enbrel 50 mg/mL (1 mL) syringe 50 mg SUBCUT .Q7days Qty: 4 3RF Rx Instructions: to be started after finishes her antibiotics methotrexate sodium 2.5 mg tablet 15 mg PO .Q7days Qty: 30 3RF folic acid 1 mg tablet 1 mg PO DAILY Qty: 90 3RF oxycodone-acetaminophen 5-325 mg tablet 1 tab PO Q6H PRN (Reason: Pain) 30 Days Qty: 120 0RF Lasix 40 mg tablet 40 mg PO EVERY OTHER DAY Qty: 20 3RF duloxetine 60 mg capsule,delayed release(DR/EC) See Rx Instructions .ROUTE .COMPLEX Qty: 30 1RF Dose Instruction: TAKE ONE CAPSULE BY MOUTH DAILY AT 8AM Rx Instructions: TAKE ONE CAPSULE BY MOUTH DAILY AT 8AM acetaminophen [Tylenol] 325 mg Tablet 650 mg PO Q6H PRN (Reason: Pain) tizanidine 2 mg Tablet 2 mg PO Q8H PRN (Reason: Muscle Spasm) naloxone 0.4 mg/mL Solution 0.4 mg SUBCUT Q2M PRN (Reason: overdose) ondansetron HCl 4 mg Tablet 4 mg PO BID PRN (Reason: Nausea) Milk of Magnesia 400 mg/5 mL Suspension 30 ml PO DAILY PRN (Reason: Constipation) albuterol sulfate 90 mcg/actuation Hfa Aerosol Inhaler 2 puff INHALATION Q4H PRN (Reason: Shortness Of Breath) trazodone 50 mg tablet 25 mg PO EVERY OTHER DAY midodrine 5 mg Tablet 10 mg PO TID Qty: 9 0RF Discharge Orders: Discharge ED (Routine); Ordered 03/22/23 Ordered By: Devon Claros Referrals: Willie Louis MD [Primary Care Provider] - 1 week Patient Instructions: Cellulitis (ED) Activity Restrictions/Additional Instructions: It appears you have cellulitis of your leg which is an infection underneath the skin. The ultrasound did not show a blood clot. Please finish all your antibiotics as prescribed please follow-up with your doctor in 7 days or sooner as needed for further evaluation and treatment. Coding Level of Care Code ED Program Supervisor for Pepe Duenas
[2023-03-22 19:00] VITALS: RESP 18; O2SAT 97
[2023-03-22 19:02] LABS: Basophils # 0.1 10^3/uL (0.0-0.1); Basophils % 0.8 %; Eosinophils # 0.3 10^3/uL (0.0-0.8); Eosinophils % 3.6 %; Hematocrit 39.9 % (37.0-47.0); Hemoglobin 12.5 g/dL (11.5-15.3); Lymphocytes # 1.2 10^3/uL (0.8-4.8); Lymphocytes % 15.3 %; Mean Corpuscular HGB Conc 31.3 g/dL (30.0-36.0); Mean Corpuscular Hemoglobin 32.1 pg (28.0-34.0); Mean Corpuscular Volume 102.3 fl (81-99); Mean Platelet Volume 9.9 fL (7.4-10.4); Monocytes # 0.5 10^3/uL (0.2-0.9); Monocytes % 6.6 %; Neutrophils # 5.65 10^3/uL (1.8-7.7); Neutrophils % 73.3 %; Nucleated Red Blood Cells % 0 %; Platelet Count 179 10^3/cmm (130-400); Red Cell Distribution Width 17.2 % (12.1-15.1); White Blood Count 7.7 10^3/uL (4.0-10.0)
[2023-03-22 19:06] LABS: INR 1.31 (0.8-1.2)
[2023-03-22 19:28] LABS: Alkaline Phosphatase 218 U/L (35-105); Blood Urea Nitrogen 4 mg/dL (6-20); Calcium 9.1 mg/dL (8.5-10.5); Carbon Dioxide 23 mmol/L (22-29); Chloride 95 mmol/L (98-107); Globulin 3.9 g/dL (1.3-4.6); Glomerular Filtration Rate 87.2 mL/min (90-130); Glucose 99 mg/dL (65-115); Osmolality Calculated 275 mOsm/kg (285-295); Procalcitonin 1.48 ng/mL (0-0.5); Sodium 134 mmol/L (136-145); Total Bilirubin 1.5 mg/dL (0.15-1.2); Total Protein 6.9 g/dL (6.6-8.7)
[2023-03-22 19:32] LABS: Anion Gap 19.9 (5-19); Potassium 3.9 mmol/L (3.5-5.1)
[2023-03-22 19:33] LABS: Alanine Aminotransferase 25 U/L (0-33); Aspartate Amino Transferase 109 U/L (0-32)
[2023-03-22 19:46] LABS: Lactic Sepsis W/Reflex 1.6 mmol/L (0.5-2.2)
[2023-03-22 20:00] VITALS: PULSE 98; RESP 16; O2SAT 98
[2023-03-22] MEDS: piperacillin-tazobactam 4.5 GM in sodium chloride 0.9% (plus) 50 ML IV (20:46)
[2023-03-22 21:17] VITALS: BP 100/76; PULSE 95; RESP 16; O2SAT 97
== END 2023-03-22 22:53 | disposition home or self-care (01) ==
PROVIDERS: Emergency Provider Emergency Medicine; PCP Internal Medicine
DX: L03.116 Cellulitis of left lower limb (principal); I12.9 Hypertensive chronic kidney disease with stage 1 through stage 4 chronic kidney disease, or unspecified chronic kidney disease; N18.9 Chronic kidney disease, unspecified; E78.5 Hyperlipidemia, unspecified
CPT/HCPCS: 36415; 80053; 83605; 84145; 85025; 85610; 87040; 93971; 96374; 96375; 99284; J2270; J2543

== ENCOUNTER → 2023-05-10 14:44 | Outpatient (BNVA) | payer MEDICAID, SELFPAY | PROVIDERS: PCP Internal Medicine; Visit Provider Internal Medicine Rheumatology | DX: Z79.899 Other long term (current) drug therapy (principal); Z71.89 Other specified counseling; Z96.659 Presence of unspecified artificial knee joint; M05.79 Rheumatoid arthritis with rheumatoid factor of multiple sites without organ or systems involvement; N63.20 Unspecified lump in the left breast, unspecified quadrant | CPT/HCPCS: 99214 ==

== ENCOUNTER → 2023-09-06 13:11 | Outpatient (BNVA) | payer MEDICAID, SELFPAY | PROVIDERS: PCP Internal Medicine; Visit Provider Internal Medicine Rheumatology | DX: Z79.899 Other long term (current) drug therapy (principal); M05.79 Rheumatoid arthritis with rheumatoid factor of multiple sites without organ or systems involvement; Z71.89 Other specified counseling; Z96.652 Presence of left artificial knee joint | CPT/HCPCS: 99214 ==

== ENCOUNTER → 2023-12-20 14:19 | Outpatient (BNVA) | payer MEDICAID, SELFPAY | PROVIDERS: PCP Internal Medicine; Visit Provider Internal Medicine Rheumatology | DX: M05.79 Rheumatoid arthritis with rheumatoid factor of multiple sites without organ or systems involvement (principal); Z79.899 Other long term (current) drug therapy; Z71.89 Other specified counseling; Z96.659 Presence of unspecified artificial knee joint | CPT/HCPCS: 99214 ==

== ENCOUNTER → 2024-05-01 13:24 | Outpatient (BNVA) | payer MEDICAID, SELFPAY | PROVIDERS: PCP Internal Medicine; Visit Provider Internal Medicine Rheumatology | DX: M05.79 Rheumatoid arthritis with rheumatoid factor of multiple sites without organ or systems involvement (principal); Z79.899 Other long term (current) drug therapy; Z71.85 Encounter for immunization safety counseling; Z96.652 Presence of left artificial knee joint; Z11.1 Encounter for screening for respiratory tuberculosis; Z11.59 Encounter for screening for other viral diseases | CPT/HCPCS: 99214 ==

== ENCOUNTER 2024-06-06 12:47 | Outpatient (CLI) | payer MEDICAID, SELFPAY ==
--- NOTE | 2024-06-06 12:52 | MM_ITS ---
WS: [id number] BILATERAL 3D TOMOSYNTHESIS DIGITAL DIAGNOSTIC MAMMOGRAPHY WITH CAD CLINICAL INFORMATION: NOTED LUMP LEFT BREAST HISTORY: LEFT breast lump COMPARISON: New baseline TECHNIQUE: Bilateral CC, MLO, and ML views. FINDINGS: Scattered fibroglandular densities bilaterally. Palpable marker LEFT breast overlies a dense dystroph ic calcification measuring 1.9 cm. Ultrasound is pending of the area of concern. Bilateral punctate calcifications. Coarse calcifications bilaterally. ULTRASOUND BREAST LEFT TECHNIQUE: Ultrasound left breast focused area of concern. CLINICAL INFORMATION: NOTED LUMP LEFT BREAST FINDINGS: Ultrasound LEFT breast area of palpable concern demonstrates dense shadowing calcification correspond ing to the dystrophic calcification on the mammogram. This lesion has a benign appearance. No other s uspicious abnormalities in the area of concern. MM/MM diag BI tomosynthesis [id number] IMPRESSION: DENSITY: There are scattered areas of fibroglandular density. BI-RADS: 2 - Benign. FOLLOW UP: 1 Year Follow-up Recommend return to annual screening mammography.
== END 2024-06-06 12:48 | disposition home or self-care (01) ==
LOC: RAD 12:47
PROVIDERS: PCP Internal Medicine; Visit Provider Internal Medicine
DX: N63.20 Unspecified lump in the left breast, unspecified quadrant (principal); R92.1 Mammographic calcification found on diagnostic imaging of breast; R92.323 Mammographic fibroglandular density, bilateral breasts
CPT/HCPCS: 76642; 77062; G0279

== ENCOUNTER 2024-06-12 21:18 | Emergency (ER) | payer MEDICAID, SELFPAY ==
[2024-06-12 21:19] VITALS: BP 112/68; PULSE 76; RESP 12; TEMP 36.7; O2SAT 93; BMI 44.6
[2024-06-12 21:42] VITALS: BP 112/68; PULSE 77; O2SAT 90
--- NOTE | 2024-06-12 22:27 | ED_ITS ---
HPI - Extremity Problem 2 General: Chief complaint: Extremity Problem,Nontraumatic Stated complaint: Celluit Bilat. Time Seen by Provider: 06/12/24 21:21 History of Present Illness: 54-year-old female with a history of chr onic kidney disease, obesity, physical debility, hyperlipidemia, hypertension and chronic anticoagulation (unclear why she is on anticoagulation) who presents [facility] with worsening possible cellulitis of her lower extremities. Redness. Warmth. Pain. No systemic fevers. No altered mental status Related Data Home Medications Medication Instructions Recorded Confirmed apixaban 5 mg tablet (Eliquis) 5 mg PO BID@08,199910/21/19 06/10/24 budesonide-formoterol HFA 160 2 puff inhalation BID@799,199910/21/19 06/10/24 mcg-4.5 mcg/actuation aerosol inhaler (Symbicort) denosumab 60 mg/mL subcutaneous 60 mg SUBCUT Q180M 10/21/19 06/10/24 syringe (Prolia) docusate sodium 100 mg capsule 200 mg PO DAILY@199910/21/19 06/10/24 (Colace) fluticasone propionate 50 2 spray intranasal DAILY@79910/21/19 06/10/24 mcg/actuation nasal spray,suspension (Flonase Allergy Relief) gabapentin 300 mg capsule 300 mg PO TID@08,14,10/21/19 06/10/24 sennosides 8.6 mg capsule (senna) 17.2 mg PO DAILY PRN Constipation 10/21/19 06/10/24 acetaminophen 325 mg tablet 650 mg PO Q6H PRN Pain 08/04/20 06/10/24 (Tylenol) albuterol sulfate 90 mcg/actuation 2 puff inhalation Q4H PRN 05/13/22 06/10/24 aerosol inhaler Shortness Of Breath magnesium hydroxide 400 mg/5 mL 30 ml PO DAILY PRN Constipation 05/13/22 06/10/24 oral suspension (Milk of Magnesia) naloxone 0.4 mg/mL injection 0.4 mg SUBCUT Q2M PRN overdose 05/13/22 06/10/24 solution ondansetron HCl 4 mg tablet 4 mg PO BID PRN Nausea 05/13/22 06/10/24 tizanidine 2 mg tablet 2 mg PO Q8H PRN Muscle Spasm 05/13/22 06/10/24 trazodone 50 mg tablet 25 mg PO EVERY OTHER DAY 05/13/22 06/10/24 potassium chloride 10 mEq 40 meq PO DAILY 07/19/23 06/10/24 capsule,extended release Previous Rx's Medication Instructions Recorded insulin syringes (disposable) 1 mL #50 ea 03/30/22 midodrine 5 mg tablet 10 mg (2 x 5 mg) PO TID #9 tabs 05/17/22 oxycodone-acetaminophen 5 mg-325 1 tab PO Q6H PRN Pain 1 month #120 05/28/22 mg tablet tabs furosemide 40 mg tablet (Lasix) 40 mg PO EVERY OTHER DAY #20 tabs 05/30/22 pantoprazole 40 mg tablet,delayed 40 mg PO DAILY@0600 #90 tabs 09/06/23 release (Protonix) folic acid 1 mg tablet 1 mg PO DAILY #90 tabs 12/20/23 abatacept 125 mg/mL subcutaneous 125 mg SUBCUT .Q7days #4 mL 05/01/24 auto-injector (Orencia ClickJect) duloxetine 60 mg capsule,delayed See Rx Instructions .Route 05/01/24 release .COMPLEX #30 caps methotrexate sodium 2.5 mg tablet 15 mg (6 x 2.5 mg) PO .Q7days #30 05/01/24 tabs prednisone 10 mg tablet 10 mg PO DAILY #90 tabs 05/01/24 doxycycline monohydrate 100 mg 100 mg PO BID 10 days #20 caps 06/12/24 capsule Allergies Allergy/AdvReac Type Severity Reaction Status Date / Time leflunomide Allergy Unknown Unknown Verified 06/03/24 14:05 Penicillins Allergy Unknown Unknown Verified 06/03/24 14:05 aspirin Allergy Unknown Verified 06/03/24 14:05 chocolate flavor Allergy ALGY-Hives Verified 06/03/24 14:05 ibuprofen Allergy Unknown Verified 06/03/24 14:05 Iodinated Contrast Media Allergy ALGY-Hives Verified 06/03/24 14:05 Review of Systems 2 Narrative: Constitutional symptoms: Negative except as documented in HPI. Skin symptoms: Negative except as documented in HPI. Eye symptoms: Negative except as documented in HPI. ENMT symptoms: Negative except as documented in HPI. Respiratory symptoms: Negative except as documented in HPI. Cardiovascular symptoms: Negative except as documented in HPI. Gastrointestinal symptoms: Negative except as documented in HPI. Genitourinary symptoms: Negative except as documented in HPI. Musculoskeletal symptoms: Negative except as documented in HPI. Neurologic symptoms: Negative except as documented in HPI. Psychiatric symptoms: Negative except as documented in HPI. Endocrine symptoms: Negative except as documented in HPI. PFSH ED 2 PFSH: Medical History Sleep disorder Asthma History of fracture Left breast lump Pancytopenia Steroid dependent Thrombocytopenia UTI (urinary tract infection) Fever Acute kidney injury superimposed on CKD Generalized weakness Fatigue Acute renal failure Yeast dermatitis Light headedness Numbness and tingling in left arm Numbness of face Atypical chest pain Immunization counseling High risk medication use Seropositive rheumatoid arthritis of multiple sites Poor intravenous access Port-A-Cath in place right upper chest Physical debility Chronic pain Hypertension Depression Constipation Anemia Rheumatoid arthritis in remission GERD (gastroesophageal reflux disease) Hyperlipidemia History of MRSA infection Edema Surgical History History of total knee arthroplasty Family History Denies family history of Anesthesia complication Bleeding disorder Social History Smoking and tobacco/nicotine status: unknown if used tobacco/nicotine Second hand smoke exposure: No Alcohol intake: never Substance/Drug Use: never Adopted: No Caregiver/support person: No Lives independently: Yes Household members: none Housing: Snf Marital status: Single Physical Exam 2 Narrative: EXAM NARRATIVE: General: Somnolent, no acute distress. Skin: Warm, dry. Bilateral lower extremity edema. Redness. Some excoriated areas. Some weeping. Head: Normocephalic, atraumatic. Neck: Supple, trachea midline. Eye: Extraocular movements are intact. Ears, nose, mouth and throat: mucosa moist. Cardiovascular: Regular, Normal peripheral perfusion. Respiratory: Lungs are clear to auscultation, respirations are non-labored, breath sounds are equal, Symmetrical chest wall expansion. Gastrointestinal: Soft, Nontender, Non distended Musculoskeletal: Normal ROM, no deformity. Neurological: Somnolent but arousable, no focal neurological deficit observed. Psychiatric: Cooperative, appropriate mood & affect. Course 2 Vital Signs: Vital signs: Vital Signs Temperature 98.1 F 06/12/24 21:19 Pulse Rate 69 06/12/24 22:44 Respiratory Rate 12 06/12/24 21:19 Blood Pressure 112/68 06/12/24 22:44 Pulse Oximetry 95 06/12/24 22:44 Oxygen Delivery Me thod Room Air 06/12/24 21:19 MDM - Extremity (Nontraumatic) Medical Decision Making Medical decision making: Differential diagnosis including but not limited to and based on the above HPI, review of systems and physical exam: N/A patient with an animal bite: Cellulitis. abscess. osteomyelitis. fracture. foreign body (i.e. tooth) Orders placed to evaluate differential diagnosis based on the above differential, HPI and physical exam Lab Review: Laboratory results were reviewed and interpreted by myself the emergency room physician. No leukocytosis. ESR and CRP are not overtly elevated. I reviewed the patient's medical record. Reexamination: Patient remained stable. Still somewhat somnolent but arousable. No increased work of breathing. No fevers. Assessment and plan: Cellulitis ?First dose IV antibiotics here in the emergency room giving some cefepime. Home on doxycycline - Discharged home - Discussed plan with patient. Answered any questions. - Evaluation and treatment of this problem were appropriate in the emergency setting. Lab Data 06/12/24 23:08 06/12/24 23:08 Laboratory Results WBC 8.69 10^3/uL (3.29-11.43) 06/12/24 23:08 RBC 3.86 10^6/uL (3.85-5.65) 06/12/24 23:08 Hgb 11.40 g/dL (11.27-16.99) 06/12/24 23:08 Hct 37.9 % (36-47) 06/12/24 23:08 MCV 98.2 fl (85-98) H 06/12/24 23:08 MCH 29.5 pg (27-33) 06/12/24 23:08 MCHC 30.1 g/dL (30-55) 06/12/24 23:08 RDW 17.4 % (12.1-15.1) H 06/12/24 23:08 Plt Count 233 10^3/cmm (157-399) 06/12/24 23:08 MPV 9.5 fL (7.4-10.4) 06/12/24 23:08 Neut % (Auto) 83.0 % 06/12/24 23:08 Lymph % (Auto) 7.9 % 06/12/24 23:08 Hood % (Auto) 7.4 % 06/12/24 23:08 Eos % (Auto) 0.6 % 06/12/24 23:08 Baso % (Auto) 0.6 % 06/12/24 23:08 Neut # (Auto) 7.22 10^3/uL (1.8-7.7) 06/12/24 23:08 Lymph # (Auto) 0.7 10^3/uL (0.8-4.8) L 06/12/24 23:08 Hood # (Auto) 0.6 10^3/uL (0.2-0.9) 06/12/24 23:08 Eos # (Auto) 0.1 10^3/uL (0.0-0.8) 06/12/24 23:08 Baso # (Auto) 0.1 10^3/uL (0.0-0.1) 06/12/24 23:08 Nucleated RBC % (auto) 0 % 06/12/24 23:08 Nucleated RBCs # 0.0 /100WBC 06/12/24 23:08 ESR 21 mm/hr (0-15) H 06/12/24 23:08 Sodium 135 mmol/L (136-145) L 06/12/24 23:08 Potassium 5.1 mmol/L (3.5-5.1) 06/12/24 23:08 Chloride 102 mmol/L (98-107) 06/12/24 23:08 Carbon Dioxide 23 mmol/L (22-29) 06/12/24 23:08 Anion Gap 15.1 (5-19) 06/12/24 23:08 BUN 10 mg/dL (6-20) 06/12/24 23:08 Creatinine 0.8 mg/dL (0.5-0.9) 06/12/24 23:08 GFR Calculation 74.2 mL/min (90-130) L 06/12/24 23:08 Glucose 183 mg/dL (65-115) H 06/12/24 23:08 Calculated Osmolality 284 mOsm/kg (285-295) L 06/12/24 23:08 Lactic Acid 2.1 mmol/L (0.5-2.2) 06/12/24 23:08 Calcium 8.5 mg/dL (8.5-10.5) 06/12/24 23:08 Total Bilirubin 0.3 mg/dL (0.15-1.2) 06/12/24 23:08 AST 20 U/L (0-32) 06/12/24 23:08 ALT 14 U/L (0-33) 06/12/24 23:08 Alkaline Phosphatase 86 U/L (35-105) 06/12/24 23:08 C-Reactive Protein 19.5 mg/L (0.0-4.9) H 06/12/24 23:08 Total Protein 6.4 g/dL (6.6-8.7) L 06/12/24 23:08 Albumin 3.7 g/dL (3.5-5.2) 06/12/24 23:08 Globulin 2.7 g/dL (1.3-4.6) 06/12/24 23:08 No radiology studies performed this visit Discharge Plan Discharge Patient Disposition: Home Clinical Impression: Cellulitis, Venous stasis Condition: Stable Prescriptions: New doxycycline monohydrate 100 mg capsule 100 mg PO BID 10 Days Qty: 20 0RF No Action Eliquis 5 mg tablet 5 mg PO BID@0800,1999 Hold Instructions: Resume on 06/07/22. Symbicort 160-4.5 mcg/actuation HFA aerosol inhaler 2 puff INHALATION BID@0800,1999 gabapentin 300 mg capsule 300 mg PO TID@,,20 docusate sodium [Colace] 100 mg capsule 200 mg PO DAILY@1999 Prolia 60 mg/mL syringe 60 mg SUBCUT Q180M fluticasone propionate [Flonase Allergy Relief] 50 mcg/actuation spray,suspension 2 spray INTRANASAL DAILY@0800 senna 8.6 mg capsule 17.2 mg PO DAILY PRN (Reason: Constipation) (DME) insulin syringes (disposable) 1 mL syringe See Rx Instructions .Route Qty: 50 0RF Rx Instructions: As directed lidocaine HCl [Lidocaine Viscous] 2 % solution 1 applic topical ONCE Qty: 1 0RF pantoprazole [Protonix] 40 mg tablet,delayed release (DR/EC) 40 mg PO DAILY@0600 Qty: 90 1RF folic acid 1 mg tablet 1 mg PO DAILY Qty: 90 3RF lidocaine HCl [Lidocaine Viscous] 2 % solution 1 applic topical ONCE Qty: 1 0RF potassium chloride 10 mEq capsule, extended release 40 meq PO DAILY lidocaine HCl [Lidocaine Viscous] 2 % solution 1 applic topical ONCE Qty: 1 0RF lidocaine HCl [Lidocaine Viscous] 2 % solution 1 applic topical ONCE Qty: 1 0RF Orencia ClickJect 125 mg/mL auto-injector 125 mg SUBCUT .Q7days Qty: 4 5RF duloxetine 60 mg capsule,delayed release(DR/EC) See Rx Instructions .ROUTE .COMPLEX Qty: 30 5RF Dose Instruction: TAKE ONE CAPSULE BY MOUTH EVERY DAY AT 8am Rx Instructions: TAKE ONE CAPSULE BY MOUTH EVERY DAY AT 8am methotrexate sodium 2.5 mg tablet 15 mg PO .Q7days Qty: 30 5RF Hold Instructions: Doctor's Order prednisone 10 mg tablet 10 mg PO DAILY Qty: 90 1RF lidocaine HCl [Lidocaine Viscous] 2 % solution 1 applic topical ONCE Qty: 1 0RF oxycodone-acetaminophen 5-325 mg tablet 1 tab PO Q6H PRN (Reason: Pain) 30 Days Qty: 120 0RF Lasix 40 mg tablet 40 mg PO EVERY OTHER DAY Qty: 20 3RF acetaminophen [Tylenol] 325 mg Tablet 650 mg PO Q6H PRN (Reason: Pain) tizanidine 2 mg Tablet 2 mg PO Q8H PRN (Reason: Muscle Spasm) naloxone 0.4 mg/mL Solution 0.4 mg SUBCUT Q2M PRN (Reason: overdose) ondansetron HCl 4 mg Tablet 4 mg PO BID PRN (Reason: Nausea) Milk of Magnesia 400 mg/5 mL Suspension 30 ml PO DAILY PRN (Reason: Constipation) albuterol sulfate 90 mcg/actuation Hfa Aerosol Inhaler 2 puff INHALATION Q4H PRN (Reason: Shortness Of Breath) trazodone 50 mg tablet 25 mg PO EVERY OTHER DAY midodrine 5 mg Tablet 10 mg PO TID Qty: 9 0RF Discharge Orders: Discharge ED (Routine); Ordered 06/12/24 Ordered By: Carolyn Syed Referrals: Willie Louis MD [Primary Care Provider] - Discharge Diet: Usual diet Discharge Activity: Increase activity as tolerated Patient Instructions: Cellulitis (ED), Opioid Safety, Pain Management Activity Restrictions/Additional Instructions: Thank you for choosing [facility] for your healthcare needs today. Please realize this is an emergency room and that we are providing you with a medical screening exam and this may not be complete and all inclusive of all the testing and or work up that you may need to determine your ailment or severity of your illness. You have been screened and evaluated and felt safe for discharge. Health conditions do change or evolve sometimes and as such it is important that you follow up with your Primary Doctor to be re checked, 3-5 days is a general good time frame for follow up. You are always welcome to return to the ED for re assessment if your symptoms are worsening or you have new concerns Coding Level of Care Code ED Computer Support Technician for Pepe Duenas
[2024-06-12 22:44] VITALS: BP 112/68; PULSE 69; O2SAT 95
[2024-06-12 23:21] LABS: Basophils # 0.1 10^3/uL (0.0-0.1); Basophils % 0.6 %; Eosinophils # 0.1 10^3/uL (0.0-0.8); Eosinophils % 0.6 %; Hematocrit 37.9 % (36-47); Lymphocytes # 0.7 10^3/uL (0.8-4.8); Lymphocytes % 7.9 %; Mean Corpuscular HGB Conc 30.1 g/dL (30-55); Mean Corpuscular Hemoglobin 29.5 pg (27-33); Mean Corpuscular Volume 98.2 fl (85-98); Mean Platelet Volume 9.5 fL (7.4-10.4); Monocytes # 0.6 10^3/uL (0.2-0.9); Monocytes % 7.4 %; Neutrophils # 7.22 10^3/uL (1.8-7.7); Nucleated Red Blood Cells % 0 %; Platelet Count 233 10^3/cmm (157-399); Red Blood Count 3.86 10^6/uL (3.85-5.65); Red Cell Distribution Width 17.4 % (12.1-15.1); White Blood Count 8.69 10^3/uL (3.29-11.43)
[2024-06-12 23:30] LABS: Erythrocyte Sedimentation Rate 21 mm/hr (0-15)
[2024-06-12 23:37] LABS: Alanine Aminotransferase 14 U/L (0-33); Albumin Level 3.7 g/dL (3.5-5.2); Alkaline Phosphatase 86 U/L (35-105); Aspartate Amino Transferase 20 U/L (0-32); Blood Urea Nitrogen 10 mg/dL (6-20); C Reactive Protein 19.5 mg/L (0.0-4.9); Calcium 8.5 mg/dL (8.5-10.5); Carbon Dioxide 23 mmol/L (22-29); Chloride 102 mmol/L (98-107); Creatinine Clr Calc Pharmacy 99.1587; Globulin 2.7 g/dL (1.3-4.6); Glomerular Filtration Rate 74.2 mL/min (90-130); Glucose 183 mg/dL (65-115); Osmolality Calculated 284 mOsm/kg (285-295); Sodium 135 mmol/L (136-145); Total Bilirubin 0.3 mg/dL (0.15-1.2); Total Protein 6.4 g/dL (6.6-8.7)
[2024-06-12 23:38] LABS: Lactic Sepsis W/Reflex 2.1 mmol/L (0.5-2.2)
[2024-06-12 23:41] LABS: Anion Gap 15.1 (5-19); Potassium 5.1 mmol/L (3.5-5.1)
[2024-06-13] VITALS (11 sets, daily range): BP systolic 112–156; BP diastolic 68–96; PULSE 66–79; O2SAT 95–99
[2024-06-13] MEDS: cefepime 2,000 MG in sodium chloride 0.9% (plus) 50 ML 100 MG IV (00:35)
[2024-06-13] MEDS: FUROsemide 10 mg/mL SDV 4mL 40 MG IVP (00:36)
[2024-06-13 01:04] LABS: Reflex Lactate Order REFLEX LACTIC ORDERD
--- NOTE | 2024-06-13 01:51 | PC.NURSE ---
Report called to Chris Keane to Anali Ross. Nurse denied further questions.
[2024-06-13] MEDS: HYDROcodone-acetaminophen 5-325 mg Tablet 1 TAB PO (04:50)
== END 2024-06-13 08:28 | disposition home or self-care (01) ==
PROVIDERS: Emergency Provider Emergency Medicine; PCP Internal Medicine
DX: L03.90 Cellulitis, unspecified (principal); I87.8 Other specified disorders of veins; Z79.01 Long term (current) use of anticoagulants; I12.9 Hypertensive chronic kidney disease with stage 1 through stage 4 chronic kidney disease, or unspecified chronic kidney disease; N18.9 Chronic kidney disease, unspecified
CPT/HCPCS: 36415; 80053; 83605; 85025; 85651; 86140; 87040; 96365; 96375; 99284; J0692; J1940

== ENCOUNTER → 2024-09-19 07:52 | Outpatient (BNVA) | payer MEDICAID, SELFPAY | PROVIDERS: PCP Internal Medicine; Referring Provider Internal Medicine; Visit Provider Nurse Practitioner Family | DX: D18.01 Hemangioma of skin and subcutaneous tissue (principal); L81.4 Other melanin hyperpigmentation; L57.8 Other skin changes due to chronic exposure to nonionizing radiation; L82.0 Inflamed seborrheic keratosis; L53.8 Other specified erythematous conditions; Z78.9 Other specified health status; R20.8 Other disturbances of skin sensation; L91.8 Other hypertrophic disorders of the skin; R58 Hemorrhage, not elsewhere classified; D48.5 Neoplasm of uncertain behavior of skin; L57.0 Actinic keratosis | CPT/HCPCS: 11102; 17000; 17110; 99203 ==

== ENCOUNTER 2024-11-04 12:41 | Emergency (ER) | payer MEDICAID, SELFPAY ==
--- NOTE | 2024-11-04 12:45 | CT_ITS ---
WS: [id number] CT HEAD TECHNIQUE: Noncontrast CT of the head obtained from the skullbase to the vertex. CLINICAL INFORMATION: AMS COMPARISON: 2021 DLP: [address] scans at [facility] use at least one of these dose optimization techniques: automated exposure control; mA and/or kV adjustment per patient size (includes targeted exams where dose is matched to clinical indication); or iterative reconstruction. FINDINGS: No evidence of intracranial hemorrhage or mass effect. Ventricular system and basal cisterns are patent. Moderate small vessel changes with moderate parenchymal volume loss. No extra-axial fluid collections. No evidence of mass or mass effect. Paranasal sinuses are well aerated. Mucosal thickening in the mastoid air cells. CT/CT head thrombolytic 72208 IMPRESSION: 1. No evidence of intracranial hemorrhage or mass effect. 2. No acute intracranial findings. Notified Weston Mott DO at 11/04/2024 1:01 PM.
--- NOTE | 2024-11-04 12:49 | ECG_ITS ---
[facility]: 2024[facility] Pat Name: Patience Rinaldi Department: Room: Gender: Female [place]: : 1970 Requested By: Weston Oconnell Order Number: [id number] Navni MD: Nevin Chávez M.D. Measurements Intervals [place] Rate: 80 P: -11 OK: 149 QRS: 2 QRSD: 109 T: 40 QT: 355 QTc: 410 Interpretive Statements SINUS RHYTHM Compared to ECG 05/14/2022 03:06:58 T-wave abnormality no longer present Possible ischemia no longer present Electronically Signed On 11-04-2024 21:00:10 CDT by Nevin Chávez M.D. [email or web address]
[2024-11-04 12:54] VITALS: BP 158/83; PULSE 80; RESP 18; TEMP 36.4; O2SAT 97
[2024-11-04 12:57] LABS: Glucose Point of Care 147 mg/dL (70-110)
[2024-11-04 13:18] LABS: Basophils % 0.4 %; Eosinophils % 0.1 %; Hematocrit 38.5 % (36-47); Lymphocytes # 0.7 10^3/uL (0.8-4.8); Lymphocytes % 6.7 %; Mean Corpuscular HGB Conc 30.6 g/dL (30-55); Mean Corpuscular Hemoglobin 29.4 pg (27-33); Mean Platelet Volume 8.3 fL (7.4-10.4); Monocytes # 0.5 10^3/uL (0.2-0.9); Monocytes % 4.6 %; Neutrophils # 9.09 10^3/uL (1.8-7.7); Neutrophils % 87.2 %; Nucleated Red Blood Cells % 0 %; Platelet Count 299 10^3/cmm (157-399); Red Blood Count 4.01 10^6/uL (3.85-5.65); Red Cell Distribution Width 17.8 % (12.1-15.1); White Blood Count 10.42 10^3/uL (3.29-11.43)
--- NOTE | 2024-11-04 13:20 | USCV_ITS ---
Patience Rinaldi Age: 54 Gender: F : 1970 Exam Date: 11/04/2024 13:43 Ordering Phys: Weston Mott DO Technologist: Exam [place] [facility] [place] Indication: bilat leg swelling PROCEDURES: The venous duplex Doppler examination of both lower extremities was performed in the standard fashion. The following venous structures were evaluated: common femoral vein, profunda vein, proximal portion of the greater saphenous vein, superficial femoral vein, and the popliteal vein. Bilaterally, the common femoral, superficial femoral, profunda femoral, popliteal, posterior tibial, greater saphenous veins, and the peroneal trunk were identified and interrogated in the standard fashion. These veins were found to be easily compressible with spontaneous blood flow. No evidence of insufficiency or thrombus noted. FINDINGS: Normal 2-D Doppler and augmentation and compressibility throughout the lower extremity venous structures. Additional imaging through the proximal calf veins also reveals no thrombus. Limited evaluation of the greater saphenous vein is patent with no thrombus. CONCLUSIONS No evidence of right lower extremity DVT. No evidence of left lower extremity DVT. Lj Marquze MD (Electronically Signed) Final Date: 04 November 2024 15:31 S
[2024-11-04 13:34] LABS: INR 1.14 (0.8-1.2)
[2024-11-04 13:35] LABS: Partial Thromboplastin Time 34.9 SECONDS (23.9-36.7)
[2024-11-04 13:39] LABS: Lactic Sepsis W/Reflex 2.4 mmol/L (0.5-2.2)
[2024-11-04 13:42] LABS: Bacteria Urine 4+ /hpf; Hyaline Casts Urine 1.21 /lpf; RBC Urine 0-2 /hpf (0-2); Squamous Epithelial Cell Urine 0-5 /hpf (0-5)
[2024-11-04 13:42] LABS: Alanine Aminotransferase 11 U/L (0-33); Albumin Level 3.8 g/dL (3.5-5.2); Alkaline Phosphatase 101 U/L (35-105); Anion Gap 14.7 (5-19); Aspartate Amino Transferase 15 U/L (0-32); Blood Urea Nitrogen 12 mg/dL (6-20); Calcium 9.2 mg/dL (8.5-10.5); Carbon Dioxide 27 mmol/L (22-29); Chloride 102 mmol/L (98-107); Creatinine Clr Calc Pharmacy 107.9268; Globulin 3.1 g/dL (1.3-4.6); Glomerular Filtration Rate 86.6 mL/min (90-130); Glucose 136 mg/dL (65-115); Osmolality Calculated 290 mOsm/kg (285-295); Potassium 4.7 mmol/L (3.5-5.1); Sodium 139 mmol/L (136-145); Total Bilirubin 0.2 mg/dL (0.15-1.2); Total Protein 6.9 g/dL (6.6-8.7)
[2024-11-04 13:45] LABS: Amphetamines Screen Urine Negative (Negative); Barbiturates Screen Urine Negative (Negative); Benzodiazepines Screen Urine Negative (Negative); Cocaine Screen Urine Negative (Negative); Opiate Screen Urine Negative (Negative); PCP Screen Urine Negative (Negative); THC Screen Urine Negative (Negative)
[2024-11-04 13:47] LABS: Add Urine Microscopic? YES; Bilirubin Urine Negative (Negative); Blood Urine Trace (Negative); Glucose Urine UA Negative (Normal); Ketones Urine Negative (Negative); Leukocyte Esterase Urine 1+ (Negative); Nitrate Urine Positive (Negative); Protein Urine Negative (Negative); Specific Gravity, Urine 1.011 (1.005-1.030); Urine Appearance Clear (CLEAR); Urine Color Yellow (Yellow)
[2024-11-04 13:51] LABS: Add Urine Culture? Yes
--- NOTE | 2024-11-04 13:52 | ED_ITS ---
HPI - Neuro Symptoms/Deficit 2 General: Chief Complaint: Neuro Symptoms/Deficit Stated Complaint: STROKE ALERT Time Seen by Provider: 11/04/24 12:48 History of Present Illness: 54-year-old female who was brought to [facility] emergency room by [facility] as a stroke alert. They reported that she was unresponsive for a time. No focal deficits she complained of a headache and neck pain earlier. Chills complaining of left lower leg pain. She has chronic venous stasis edema with mild redness of the left lower leg Associated symptoms: Deny chest pain Related Data Home Medications ?Medication ?Instructions ?Recorded ?Confirmed apixaban 5 mg tablet (Eliquis) 5 mg PO BID@799,1999 0 10/21/19 11/04/24 Held on 05/17/22. Instructions: Resume on 06/07/22. budesonide-formoterol HFA 160 2 puff inhalation BID@,199910/21/19 11/04/24 mcg-4.5 mcg/actuation aerosol inhaler (Symbicort) denosumab 60 mg/mL subcutaneous 60 mg SUBCUT .[id number] 10/21/19 11/04/24 syringe (Prolia) docusate sodium 100 mg capsule 200 mg PO DAILY@199911/04/24 (Colace) gabapentin 300 mg capsule 300 mg PO TID@08,,10/2011/04/24 acetaminophen 325 mg tablet 650 mg PO Q6H PRN Pain 11/04/24 (Tylenol) magnesium hydroxide 400 mg/5 mL 30 ml PO DAILY PRN Con stipation 05/13/22 11/04/24 oral suspension (Milk of Magnesia) naloxone 0.4 mg/mL injection 0.4 mg SUBCUT Q2M PRN ove rdose 05/13/22 11/04/24 solution ondansetron HCl 4 mg tablet 4 mg PO BID PRN Nausea 11/04/24 duloxetine 60 mg capsule,delayed 60 mg PO QAM 11/04/24 11/04/24 release midodrine 10 mg tablet 10 mg PO TID 11/04/24 nutritional supplements 1 ea PO BID 11/04/24 5 oxcarbazepine 300 mg tablet 300 mg PO BID 11/04/24 potassium chloride 20 mEq 40 meq PO DAILY 11/04/24 tablet,extended release(part/cryst) sennosides 8.6 mg tablet (senna) 16.32 mg PO QAM 11/0411/04/24 trazodone 100 mg tablet 100 mg PO BEDTIME 11/04/24 0 11/04/24 Previous Rx's ?Medication ?Instructions ?Recorded insulin syringes (disposable) 1 mL #50 ea 03/30/22 furosemide 40 mg tablet (Lasix) 40 mg PO EVERY OTHER D AY #20 tabs 05/30/22 pantoprazole 40 mg tablet,delayed 40 mg PO DAILY@0600 #90 tabs 09/06/23 release (Protonix) folic acid 1 mg tablet 1 mg PO DAILY #90 tabs 12/19 methotrexate sodium 2.5 mg tablet 15 mg (6 x 2.5 mg) P O .Q7days #30 05/01/24 tabs prednisone 10 mg tablet 10 mg PO DAILY #90 tabs 04/14 04/06 abatacept 125 mg/mL subcutaneous 125 mg SUBCUT .Q7days #4 mL 10/03/24 auto-injector ([employer] ClickJect) mupirocin 2 % topical ointment 1 applic topical TID #1 5 grams 10/15/24 ([facility]) doxycycline hyclate 100 mg capsule 100 mg PO BID 10 da ys #20 caps 11/04/24 Allergies Allergy/AdvReac Type Severity Reaction Status Date / Time leflunomide Allergy Unknown Unknown Verified 11/04/24 12:52 Penicillins Allergy Unknown Unknown Verified 11/04/24 12:52 aspirin Allergy Unknown Verified 11/04/24 12:52 chocolate flavor Allergy ALGY-Hives Verified 11/04/24 12:52 ibuprofen Allergy Unknown Verified 11/04/24 12:52 Iodinated Contrast Media Allergy ALGY-Hives Verified 11/04/24 12:52 Review of Systems 2 Const: Denies: fever(s) or chills Card: Denies: chest pain Resp: Denies: dyspnea GI: Denies: abdominal pain : Denies: dysuria, urinary frequency or urinary urgency Musc: Denies: neck pain or back pain Skin/Breast: Denies: rash PFSH ED 2 PFSH: Medical History Non-pressure chronic ulcer of thigh, left, limited to breakdown of skin Ulcer of left groin Unspecified open wound, left lower leg, subsequent encounter Right groin ulcer Unspecified open wound, right lower leg, subsequent encounter Sleep disorder Asthma History of fracture Left breast lump Pancytopenia Steroid dependent Thrombocytopenia UTI (urinary tract infection) Fever Acute kidney injury superimposed on CKD Generalized weakness Fatigue Acute renal failure Yeast dermatitis Light headedness Numbness and tingling in left arm Numbness of face Atypical chest pain Immunization counseling High risk medication use Seropositive rheumatoid arthritis of multiple sites Poor intravenous access Port-A-Cath in place right upper chest Physical debility Chronic pain Hypertension Depression Constipation Anemia Rheumatoid arthritis in remission GERD (gastroesophageal reflux disease) Hyperlipidemia History of MRSA infection Edema Surgical History History of total knee arthroplasty Family History Denies family history of Anesthesia complication Bleeding disorder Social History Smoking and tobacco/nicotine status: unknown if used tobacco/nicotine Second hand smoke exposure: No Alcohol intake: never Substance/Drug Use: never Adopted: No Caregiver/support person: No Lives independently: Yes Household members: none Housing: Intermediate Marital status: Single NIH stroke score 2 NIHSS: Level Of Consciousness - 1a: 0 Level Of Consciousness Questions - 1b: Both Correct Level Of Consciousness Commands - 1c: Both Correct Best Gaze - 2: Normal Visual El - 3: No Visual Loss Facial Palsy - 4: N ormal Motor Arm Right - 5: No Drift Motor Arm Left - 5: No Drift Motor Leg Right - 6: No Drift Motor Leg Left - 6: No Drift Limb Ataxia - 7: A bsent Sensory - 8: Normal Best Language - 9: No Aphasia Dysarthia - 10: Normal Extinction And Inattention - 11: 0 Score: Total Score: 0 Physical Exam 2 Const: COMMON NORMALS: no acute distress GENERAL APPEARANCE: cooperative and comfortable ORIENTATION/CONSCIOUSNESS: Yes awake, Yes oriented to person, Yes oriented to place and Yes oriented to time HENMT: COMMON NORMALS: normocephalic, atraumatic and hearing grossly normal bilaterally HEAD & SCALP: normocephalic and atraumatic Resp: COMMON NORMALS: normal respiratory effort, No retractions, No use of accessory muscles and clear to auscultation bilaterally AUSCULTATION: clear to auscultation bilaterally Cardio: COMMON NORMALS: regular rate, regular rhythm and No murmurs present (Cardio) RATE: regular rate RHYTHM: regular rhythm GI: COMMON NORMALS: Soft to palpation and No hepatosplenomegaly present A USCULTATION: Yes normoactive bowel sounds PALPATION: Yes Soft to palpation, No Tenderness to palpation present (GI), No Guarding due to palpation present (GI) and Yes No hepatosplenomegaly present Extremity: OTHER: Chronic venous stasis edema some violaceous changes in the left lower leg anteriorly exquisitely tender to the touch mild induration. No purulent drainage. Neuro: SENSORIUM/ORIENTATION: Yes oriented to person, Yes oriented to place and Yes oriented to time Skin: COMMON NORMALS: no rashes or lesions noted GENERAL SKIN EXAM: no rashes or lesions noted Course 2 Vital Signs: Vital signs: Vital Signs Temperature 97.6 F 11/04/24 12:54 Pulse Rate 85 11/04/24 16:08 Respiratory Rate 18 11/04/24 12:54 Blood Pressure 158/76 11/04/24 16:08 Pulse Oximetry 96 11/04/24 16:08 Oxygen Delivery Me thod Room Air 11/04/24 12:54 MDM - Neuro Symptoms/Deficit Medical Decision Making Venous duplex negative for DVT white count normal. No sign of stroke CT head negative. Remainder labs not show anything clinically acute. [facility] started on doxycycline for cellulitis follow-up with primary care Medical Records I reviewed the patient's medical records. Lab Data I reviewed the patient's lab results. 11/04/24 13:09 11/04/24 13:[address] 11/04/24 12:45 IMPRESSION: 1. No evidence of intracranial hemorrhage or mass effect. 2. No acute intracranial findings. Notified Weston Mott DO at 11/04/2024 1:01 PM. Laboratory Results WBC 10.42 10^3/uL (3.29-11.43) 11/04/24 13:09 RBC 4.01 10^6/uL (3.85-5.65) 11/04/24 13:09 Hgb 11.80 g/dL (11.27-16.99) 11/04/24 13:09 Hct 38.5 % (36-47) 11/04/24 13:09 MCV 96.0 fl (85-98) 11/04/24 13:09 MCH 29.4 pg (27-33) 11/04/24 13:09 MCHC 30.6 g/dL (30-55) 11/04/24 13:09 RDW 17.8 % (12.1-15.1) H 11/04/24 13:09 Plt Count 299 10^3/cmm (157-399) 11/04/24 13:09 MPV 8.3 fL (7.4-10.4) 11/04/24 13:09 Neut % (Auto) 87.2 % 11/04/24 13:09 Lymph % (Auto) 6.7 % 11/04/24 13:09 [place] % (Auto) 4.6 % 11/04/24 13:09 Eos % (Auto) 0.1 % 11/04/24 13:09 Baso % (Auto) 0.4 % 11/04/24 13:09 Neut # (Auto) 9.09 10^3/uL (1.8-7.7) H 11/04/24 13:09 Lymph # (Auto) 0.7 10^3/uL (0.8-4.8) L 11/04/24 13:09 [place] # (Auto) 0.5 10^3/uL (0.2-0.9) 11/04/24 13:09 Eos # (Auto) 0.0 10^3/uL (0.0-0.8) 11/04/24 13:09 Baso # (Auto) 0.0 10^3/uL (0.0-0.1) 11/04/24 13:09 Nucleated RBC % (auto) 0 % 11/04/24 13:09 Nucleated RBCs # 0.0 /100WBC 11/04/24 13:09 PT 15.40 SECONDS (12.1-14.9) H 11/04/24 13:09 INR 1.14 (0.8-1.2) 11/04/24 13:09 APTT 34.9 SECONDS (23.9-36.7) 11/04/24 13:09 Sodium 139 mmol/L (136-145) 11/04/24 13:09 Potassium 4.7 mmol/L (3.5-5.1) 11/04/24 13:09 Chloride 102 mmol/L (98-107) 11/04/24 13:09 Carbon Dioxide 27 mmol/L (22-29) 11/04/24 13:09 Anion Gap 14.7 (5-19) 11/04/24 13:09 BUN 12 mg/dL (6-20) 11/04/24 13:09 Creatinine 0.7 mg/dL (0.5-0.9) 11/04/24 13:09 GFR Calculation 86.6 mL/min (90-130) L 11/04/24 13:09 Glucose 136 mg/dL (65-115) H 11/04/24 13:09 POC Glucose 147 mg/dL (70-110) H 11/04/24 12:52 Calculated Osmolality 290 mOsm/kg (285-295) 11/04/24 13:09 Lactic Acid 2.4 mmol/L (0.5-2.2) H 11/04/24 13:09 Lactic Acid (Sepsis) 1.0 mmol/L (0.5-2.2) 11/04/24 15:38 Calcium 9.2 mg/dL (8.5-10.5) 11/04/24 13:09 Total Bilirubin 0.2 mg/dL (0.15-1.2) 11/04/24 13:09 AST 15 U/L (0-32) 11/04/24 13:09 ALT 11 U/L (0-33) 11/04/24 13:09 Alkaline Phosphatase 101 U/L (35-105) 11/04/24 13:09 Total Protein 6.9 g/dL (6.6-8.7) 11/04/24 13:09 Albumin 3.8 g/dL (3.5-5.2) 11/04/24 13:09 Globulin 3.1 g/dL (1.3-4.6) 11/04/24 13:09 Urine Color Yellow (Yellow) 11/04/24 13:29 Urine Appearance Clear (CLEAR) 11/04/24 13:29 Urine pH 7.0 (5-7) 11/04/24 13:29 Ur Specific [place] 1.011 (1.005-1.030) 11/04/24 13:29 Urine Protein Negative (Negative) 11/04/24 13:29 Urine Glucose (UA) Negative (Normal) 11/04/24 13:29 Urine Ketones Negative (Negative) 11/04/24 13:29 Urine Blood Trace (Negative) A 11/04/24 13:29 Urine Nitrate Positive (Negative) A 11/04/24 13:29 Urine Bilirubin Negative (Negative) 11/04/24 13:29 Urine Urobilinogen 1.0 mg/dL (Negative) 11/04/24 13:29 Ur Leukocyte Esterase 1+ (Negative) A 11/04/24 13:29 Urine RBC 0-2 /hpf (0-2) 11/04/24 13:29 Urine WBC 11-20 /hpf (0-5) H 11/04/24 13:29 Ur Squamous Epith Cells 0-5 /hpf (0-5) 11/04/24 13:29 Amorphous Sediment Not Reportable 11/04/24 13:29 Urine Bacteria 4+ /hpf (NONE) H 11/04/24 13:29 Hyaline Casts 1.21 /lpf 11/04/24 13:29 Urine Opiates Screen Negative ng/mL (Negative) 11/04/24 13:29 Ur Barbiturates Screen Negative ng/mL (Negative) 11/04/24 13:29 Ur Phencyclidine Scrn Negative ng/mL (Negative) 11/04/24 13:29 Ur Amphetamines Screen Negative ng/mL (Negative) 11/04/24 13:29 U Benzodiazepines Scrn Negative ng/mL (Negative) 11/04/24 13:29 Urine Cocaine Screen Negative ng/mL (Negative) 11/04/24 13:29 U Marijuana (THC) Screen Negative ng/mL (Negative) 11/04/24 13:29 All radiology interpretation(s) finalized by discharge Discharge Plan Discharge Patient Disposition: Home Clinical Impression: Cellulitis and abscess of left leg Condition: Stable Prescriptions: New doxycycline hyclate 100 mg capsule 100 mg PO BID 10 Days Qty: 20 0RF No Action Eliquis 5 mg tablet 5 mg PO BID@0800,2000 Symbicort 160-4.5 mcg/actuation HFA aerosol inhaler 2 puff INHALATION BID@0800,1999 gabapentin 300 mg capsule 300 mg PO TID@,, docusate sodium [Colace] 100 mg capsule 200 mg PO DAILY@1999 Prolia 60 mg/mL syringe 60 mg SUBCUT .[id number] (DME) insulin syringes (disposable) 1 mL syringe See Rx Instructions .Route Qty: 50 0RF Rx Instructions: As directed pantoprazole [Protonix] 40 mg tablet,delayed release (DR/EC) 40 mg PO DAILY@0600 Qty: 90 1RF folic acid 1 mg tablet 1 mg PO DAILY Qty: 90 3RF methotrexate sodium 2.5 mg tablet 15 mg PO .Q7days Qty: 30 5RF Rx Instructions: Monday prednisone 10 mg tablet 10 mg PO DAILY Qty: 90 1RF mupirocin [Centany] 2 % ointment 1 applic topical TID Qty: 15 0RF Lasix 40 mg tablet 40 mg PO EVERY OTHER DAY Qty: 20 3RF [place] ClickJect 125 mg/mL auto-injector 125 mg SUBCUT .Q7days Qty: 4 5RF acetaminophen [Tylenol] 325 mg Tablet 650 mg PO Q6H PRN (Reason: Pain) naloxone 0.4 mg/mL Solution 0.4 mg SUBCUT Q2M PRN (Reason: overdose) ondansetron HCl 4 mg Tablet 4 mg PO BID PRN (Reason: Nausea) magnesium hydroxide [Milk of Magnesia] 400 mg/5 mL Suspension 30 ml PO DAILY PRN (Reason: Constipation) sennosides [senna] 8.6 mg Tablet 16.32 mg PO QAM oxcarbazepine 300 mg tablet 300 mg PO BID Zen Powder 1 ea PO BID potassium chloride 20 mEq tablet,ER particles/crystals 40 meq PO DAILY trazodone 100 mg tablet 100 mg PO BEDTIME midodrine 10 mg tablet 10 mg PO TID duloxetine 60 mg capsule,delayed release(DR/EC) 60 mg PO QAM Discharge Orders: Discharge ED (Routine); Ordered 11/04/24 Ordered By: Weston Mott Referrals: Willie Louis MD [Primary Care Provider] - Discharge Diet: Usual diet Discharge Activity: Increase activity as tolerated Patient Instructions: Opioid Safety, Pain Management Activity Restrictions/Additional Instructions: Thank you for choosing [facility] for your healthcare needs today. It is very important that you follow up as instructed or that you return to the Emergency Department should you have concerns or if your condition changes or worsens in any way. You were seen in the emergency room with a concern of a stroke there is no sign there is no sign of a stroke at the time you are seen CT of your head is negative. There is mild cellulitis on the left lower leg for which she started on oral antibiotics. Follow-up with your primary care doctor. Print Language: Jamaican Coding Level of Care Code ED Maintenance Coordinator for Pepe Deunas
[2024-11-04 14:01] VITALS: PULSE 80; O2SAT 98
[2024-11-04] MEDS: VANCOMYCIN ADD-Vantage 1,000 MG in 0.9% NaCl ADD-Vantage 250 ML 250 MG IV (14:20)
[2024-11-04 15:14] LABS: Reflex Lactate Order REFLEX LACTIC ORDERD
[2024-11-04 15:36] VITALS: BP 154/86; PULSE 82; O2SAT 100
[2024-11-04 16:08] VITALS: BP 158/76; PULSE 85; O2SAT 96
--- NOTE | 2024-11-04 16:11 | PC.NURSE ---
attempted to call report to Chris Keane, no answer; voicemail left
[2024-11-05 12:34] LABS: Staphylococcus species Detected (NOT DETECT); mecA Detected (NOT DETECT)
== END 2024-11-04 16:11 | disposition home or self-care (01) ==
PROVIDERS: Emergency Provider Family Medicine; PCP Internal Medicine
DX: L03.116 Cellulitis of left lower limb (principal); L02.416 Cutaneous abscess of left lower limb; Z79.01 Long term (current) use of anticoagulants; I10 Essential (primary) hypertension; E78.5 Hyperlipidemia, unspecified; R60.0 Localized edema
CPT/HCPCS: 36415; 36416; 70450; 80053; 80306; 81001; 82962; 83605; 85025; 85610; 85730; 87040; 87077; 87086; 87150; 87186; 87205; 93005; 93970; 96374; 99285; J3370; J7050

== ENCOUNTER → 2024-11-06 12:35 | Outpatient (BNVA) | payer MEDICAID, SELFPAY | PROVIDERS: PCP Internal Medicine; Visit Provider Internal Medicine Rheumatology | DX: Z79.899 Other long term (current) drug therapy (principal); Z71.89 Other specified counseling; Z96.659 Presence of unspecified artificial knee joint; M05.79 Rheumatoid arthritis with rheumatoid factor of multiple sites without organ or systems involvement | CPT/HCPCS: 99214 ==

== ENCOUNTER → 2025-02-25 12:05 | Outpatient (BNVA) | payer MEDICAID, SELFPAY | PROVIDERS: PCP Internal Medicine; Visit Provider Internal Medicine Rheumatology | DX: Z79.899 Other long term (current) drug therapy (principal); Z71.85 Encounter for immunization safety counseling; Z96.659 Presence of unspecified artificial knee joint; M05.79 Rheumatoid arthritis with rheumatoid factor of multiple sites without organ or systems involvement | CPT/HCPCS: 99214 ==

== ENCOUNTER 2025-06-18 11:34 | Outpatient (CLI) | payer MEDICAID, SELFPAY ==
--- NOTE | 2025-06-18 11:40 | MM_ITS ---
WS: [id number] BILATERAL 3D TOMOSYNTHESIS DIGITAL SCREENING MAMMOGRAPHY WITH CAD CLINICAL INFORMATION: SCREENING HISTORY: Screening mammogram. No current complaints. COMPARISON: 2023 TECHNIQUE: Bilateral CC and MLO views. FINDINGS: Scattered fibroglandular densities bilaterally. No suspicious focal mass, asymmetry, calcifications, or architectural distortion. No evidence of malignancy. Stable bilateral dystrophic calcifications. MM/MM scr tomosynthesis 70209 IMPRESSION: DENSITY: There are scattered areas of fibroglandular density. BI-RADS: 2 - Benign. FOLLOW UP: 1 Year Follow-up Recommend return to annual screening mammography.
== END 2025-06-18 11:35 | disposition home or self-care (01) ==
LOC: RAD 11:34
PROVIDERS: PCP Internal Medicine; Visit Provider Internal Medicine
DX: Z12.31 Encounter for screening mammogram for malignant neoplasm of breast (principal); R92.323 Mammographic fibroglandular density, bilateral breasts; R92.1 Mammographic calcification found on diagnostic imaging of breast
CPT/HCPCS: 77063; 77067